=== PATIENT | female | born 1960 | race Caucasian/White ===

== ENCOUNTER 2019-12-29 09:53 | Inpatient (IN) | payer MEDICARE, SELFPAY ==
[2019-12-29] VITALS (34 sets, daily range): BP systolic 99–140; BP diastolic 58–78; PULSE 0–93; RESP 13–28; TEMP 36.4–36.8; O2SAT 93–100; BMI 25.1
--- NOTE | 2019-12-29 09:56 | ED_ITS ---
Entered by Adriana Malhotra, acting as scribe for Christopher Cowan DO HPI - Syncope General: Chief Complaint: Syncope Stated Complaint: Syncope Time Seen by Provider: 12/29/19 09:57 Source: patient and family Mode of arrival: wheelchair Limitations: no limitations History of Present Illness: HPI narrative: 59 yo female presents with syncope episode. per spouse the pt was riding in the car when she passed out and her defibrillator went off twice, pt was out for a few minutes then when came to she was sweaty and had nausea. pt denies any other symptoms. per daughter this has happened twice due to V-tach. MD complaint: felt faint and collapsed Onset (ago): hour(s) (just ferry [place] Prodromal symptoms: lightheaded, shortness of breath and diaphoresis Witnessed: Yes - by Other (spouse) Context: during exertion (driving down road) Associated symptoms: Reports chest pain, lightheadedness, nausea and short of breath; Deny fever(s) Treatments prior to arrival: none Review of Systems Const: Denies: fever, chills, body aches, change in appetite, fatigue or malaise ENMT: Denies: throat pain, ear pain, nasal discharge or nasal congestion Card: Reports: chest pain and lightheadedness Resp: Denies: shortness of breath, productive cough or non-productive cough GI: Reports: nausea : Denies: flank pain, difficulty urinating, painful urination, urinary frequency or urinary urgency Skin/Breast: Denies: rash or itching PFSH ED PFSH: Medical History Anticoagulant long-term use ASHD (arteriosclerotic heart disease) Atrial fibrillation Congestive heart failure with cardiomyopathy Dyslipidemia Ischemic cardiomyopathy LV (left ventricular) mural thrombus Myocardial infarction Periodontal disease Ventricular tachycardia Surgical History S/P angioplasty with stent S/P CABG (coronary artery bypass graft) S/P ICD (internal cardiac defibrillator) procedure Status post tubal ligation Family History Father CAD (coronary artery disease) Myocardial infarction Mother CAD (coronary artery disease) Myocardial infarction Sister CAD (coronary artery disease) Myocardial infarction Social History Smoking and tobacco status: former smoker Alcohol intake: current Alcohol intake frequency: holidays/special occasions only Marital status: Life Partner Current gender identity: Female Josi/Scientologist: Yarsani Physical Exam Const: COMMON NORMALS: no apparent distress GENERAL APPEARANCE: cooperative and comfortable ORIENTATION/CONSCIOUSNESS: Yes awake, Yes oriented to person, Yes oriented to place and Yes oriented to time HENMT: COMMON NORMALS: normocephalic, head/scalp atraumatic, hearing grossly normal bilaterally, external ears normal, EAC's normal, TM's normal bilaterally, nasal mucous membranes and turbinates normal, moist oral mucous membranes and oropharynx normal HEAD & SCALP: normocephalic and atraumatic NOSE: nasal mucous membranes and turbinates normal EXTERNAL EAR: Yes external ears normal EXTERNAL AUDITORY CANAL: EAC's normal TYMPANIC MEMBRANE: TM's normal bilaterally Eye: COMMON NORMALS: PERRL, EOMs intact bilaterally, conjunctivae normal and no scleral icterus CONJUNCTIVA: Yes conjunctivae normal PUPIL: Yes PERRL Neck/C-Spine: COMMON NORMALS: full ROM, no lymphadenopathy, supple and no JVD Lymph: LYMPHATIC: no lymphadenopathy noted and no lymphedema noted Resp: COMMON NORMALS: normal respiratory effort, no retractions, no use of accessory muscles and clear to auscultation bilaterally AUSCULTATION: clear to auscultation bilaterally Cardio: COMMON NORMALS: no JVD, regular rate, regular rhythm and no murmurs RATE: regular rate RHYTHM: regular rhythm GI: COMMON NORMALS: soft to palpation and no hepatosplenomegaly AUSCULTATION: Yes normoactive bowel sounds PALPATION: Yes soft, No tender, No guarding and Yes no hepatosplenomegaly Extremity: COMMON NORMALS: normal to inspection, normal capillary refill, no clubbing, cyanosis or edema, no calf tenderness and no pedal edema Neuro: SENSORIUM/ORIENTATION: Yes oriented to person, Yes oriented to place and Yes oriented to time Skin: COMMON NORMALS: no rashes or lesions noted GENERAL SKIN EXAM: no rashes or lesions noted Course Vital Signs: Vital signs: Vital Signs Temperature 98.3 F 01/01/20 04:00 Pulse Rate 60 01/01/20 14:30 Respiratory Rate 19 H 01/01/20 14:30 Blood Pressure 99/51 01/01/20 14:30 Pulse Oximetry 97 01/01/20 14:30 MDM - Syncope Lab Data: Labs: Lab Results 12/29/19 12/29/19 12/29/19 Range/Units 10:05 10:05 10:05 WBC 5.8 (4.0-10.0) 10^3/ uL RBC 4.95 (4.1-5.3) 10^6/u L Hgb 11.1 L (11.5-15.3) g/dL Hct 38.8 (37.0-47.0) % MCV 78.4 L (81-99) fL MCH 22.4 L (28.0-34.0) pg MCHC 28.6 L (30.0-36.0) g/dL RDW 23.2 H (12.1-15.1) % Plt Count 316 (130-400) 10^3/c mm MPV 10.2 (7.4-10.4) fL Neut % (Auto) 61.3 % Lymph % (Auto) 20.8 % [place] % (Auto) 12.9 % Eos % (Auto) 2.9 % Baso % (Auto) 1.9 % Neut # (Auto) 3.6 (1.8-7.7) 10^3/u L Lymph # (Auto) 1.2 (0.8-4.8) 10^3/u L [place] # (Auto) 0.8 (0.2-0.9) 10^3/u L Eos # (Auto) 0.2 (0.0-0.8) 10^3/u L Baso # (Auto) 0.1 (0.0-0.1) 10^3/u L Nucleated RBC % (a uto) 0.5 % Nucleated RBCs # 0.0 /100WBC PT (10.5-13.3) SECO NDS INR (0.8-1.2) Specimen Type Sample Site ABG pH (7.35-7.45) ABG pCO2 (35-45) mmHg ABG pO2 (80.0-100.0) mmH g ABG HCO3 (22-26) mmol/L ABG O2 Saturation ABG Base Excess (-2.0-2.0) mmol/ L Galen Test Hematocrit (37-47) % Hgb O2 Saturation (95-100) % Carboxyhemoglobin (0.4-20.1) %THgb Methemoglobin (0.4-1.5) % Total Hemoglobin (12-16) g/dL Ionized Calcium (1.1-1.4) mmol/L O2 Delivery Device O2 Liters/Min % Insurance Biller ID Sodium 133 L (136-145) mmol/L Potassium 3.8 (3.5-5.1) mmol/L Chloride 97 L (98-107) mmol/L Carbon Dioxide 18 L (22-29) mmol/L Anion Gap 21.8 H (5-19) BUN 28 H (8-23) mg/dL Creatinine 1.4 H (0.5-0.9) mg/dL GFR Calculation 38.4 L (90-130) mL/min Glucose 167 H (65-115) mg/dL Calculated Osmolal ity 277 L (285-295) mOsm/k g Lactate (0.5-2.2) mmol/L Calcium 9.4 (8.5-10.5) mg/dL Total Bilirubin 1.3 H (0.15-1.2) mg/dL AST 28 (0-32) U/L ALT 14 (0-33) U/L Alkaline Phosphata se 193 H (35-105) IU/L Troponin T Baselin e 30 H (0-10) ng/mL Troponin T 120 Min [place] (0-10) ng/mL Delta Troponin T (0-10) ABS# NT-Pro-B Natriuret Pep 78302 H (0-125) pg/mL Total Protein 7.9 (6.6-8.7) g/dL Albumin 4.1 (3.5-5.2) g/dL Globulin 3.8 (1.3-4.6) g/dL Lipase 54 (13-60) U/L 12/29/19 12/29/19 12/29/19 Range/Units 10:05 10:05 10:14 WBC (4.0-10.0) 10^3/ uL RBC (4.1-5.3) 10^6/u L Hgb (11.5-15.3) g/dL Hct (37.0-47.0) % MCV (81-99) fL MCH (28.0-34.0) pg MCHC (30.0-36.0) g/dL RDW (12.1-15.1) % Plt Count (130-400) 10^3/c mm MPV (7.4-10.4) fL Neut % (Auto) % Lymph % (Auto) % [place] % (Auto) % Eos % (Auto) % Baso % (Auto) % Neut # (Auto) (1.8-7.7) 10^3/u L Lymph # (Auto) (0.8-4.8) 10^3/u L [place] # (Auto) (0.2-0.9) 10^3/u L Eos # (Auto) (0.0-0.8) 10^3/u L Baso # (Auto) (0.0-0.1) 10^3/u L Nucleated RBC % (a uto) % Nucleated RBCs # /100WBC PT 33.10 H (10.5-13.3) SECO NDS INR 3.19 H (0.8-1.2) Specimen Type Arterial Sample Site Radial, right ABG pH 7.29 L (7.35-7.45) ABG pCO2 39.4 (35-45) mmHg ABG pO2 101.0 H (80.0-100.0) mmH g ABG HCO3 19.0 L (22-26) mmol/L ABG O2 Saturation 97.6 ABG Base Excess -7.1 L (-2.0-2.0) mmol/ L Galen Test Pos Hematocrit 33.9 L (37-47) % Hgb O2 Saturation 96.3 (95-100) % Carboxyhemoglobin 0.9 (0.4-20.1) %THgb Methemoglobin 0.5 (0.4-1.5) % Total Hemoglobin 11.1 L (12-16) g/dL Ionized Calcium 1.1 (1.1-1.4) mmol/L O2 Delivery Device Nc O2 Liters/Min 4.0 % Insurance Biller ID [place] Sodium 136.0 (136-145) mmol/L Potassium 3.6 (3.5-5.1) mmol/L Chloride (98-107) mmol/L Carbon Dioxide (22-29) mmol/L Anion Gap (5-19) BUN (8-23) mg/dL Creatinine (0.5-0.9) mg/dL GFR Calculation (90-130) mL/min Glucose 162.0 H (65-115) mg/dL Calculated Osmolal ity (285-295) mOsm/k g Lactate 6.0 H* (0.5-2.2) mmol/L Calcium (8.5-10.5) mg/dL Total Bilirubin (0.15-1.2) mg/dL AST (0-32) U/L ALT (0-33) U/L Alkaline Phosphata se (35-105) IU/L Troponin T Baselin e (0-10) ng/mL Troponin T 120 Min [place] (0-10) ng/mL Delta Troponin T (0-10) ABS# NT-Pro-B Natriuret Pep (0-125) pg/mL Total Protein (6.6-8.7) g/dL Albumin (3.5-5.2) g/dL Globulin (1.3-4.6) g/dL Lipase (13-60) U/L 12/29/19 12/29/19 Range/Units 11:22 12:20 WBC (4.0-10.0) 10^3/ uL RBC (4.1-5.3) 10^6/u L Hgb (11.5-15.3) g/dL Hct (37.0-47.0) % MCV (81-99) fL MCH (28.0-34.0) pg MCHC (30.0-36.0) g/dL RDW (12.1-15.1) % Plt Count (130-400) 10^3/c mm MPV (7.4-10.4) fL Neut % (Auto) % Lymph % (Auto) % [place] % (Auto) % Eos % (Auto) % Baso % (Auto) % Neut # (Auto) (1.8-7.7) 10^3/u L Lymph # (Auto) (0.8-4.8) 10^3/u L [place] # (Auto) (0.2-0.9) 10^3/u L Eos # (Auto) (0.0-0.8) 10^3/u L Baso # (Auto) (0.0-0.1) 10^3/u L Nucleated RBC % (a uto) % Nucleated RBCs # /100WBC PT (10.5-13.3) SECO NDS INR (0.8-1.2) Specimen Type Arterial Sample Site Radial, right ABG pH 7.53 H (7.35-7.45) ABG pCO2 25.3 L (35-45) mmHg ABG pO2 129.0 H (80.0-100.0) mmH g ABG HCO3 20.9 L (22-26) mmol/L ABG O2 Saturation 99.6 ABG Base Excess -0.9 (-2.0-2.0) mmol/ L Galen Test Pos Hematocrit 32.6 L (37-47) % Hgb O2 Saturation 98.6 (95-100) % Carboxyhemoglobin 0.8 (0.4-20.1) %THgb Methemoglobin 0.2 L (0.4-1.5) % Total Hemoglobin 10.6 L (12-16) g/dL Ionized Calcium 1.2 (1.1-1.4) mmol/L O2 Delivery Device Nc O2 Liters/Min 4.0 % Insurance Biller ID [place] Sodium 132.0 (136-145) mmol/L Potassium 3.4 L (3.5-5.1) mmol/L Chloride (98-107) mmol/L Carbon Dioxide (22-29) mmol/L Anion Gap (5-19) BUN (8-23) mg/dL Creatinine (0.5-0.9) mg/dL GFR Calculation (90-130) mL/min Glucose 110.0 (65-115) mg/dL Calculated Osmolal ity (285-295) mOsm/k g Lactate (0.5-2.2) mmol/L Calcium (8.5-10.5) mg/dL Total Bilirubin (0.15-1.2) mg/dL AST (0-32) U/L ALT (0-33) U/L Alkaline Phosphata se (35-105) IU/L Troponin T Baselin e (0-10) ng/mL Troponin T 120 Min [place] 30.89 H (0-10) ng/mL Delta Troponin T 0.89 (0-10) ABS# NT-Pro-B Natriuret Pep (0-125) pg/mL Total Protein (6.6-8.7) g/dL Albumin (3.5-5.2) g/dL Globulin (1.3-4.6) g/dL Lipase (13-60) U/L Imaging Data^: CXR: Radiologist's impression: [address] [address] XRay Report Signed Patient: Angela Woodruff #: [id number] : 1960Acct#:[id number] Age/Sex: 59 / FADM Date: 12/29/19 Loc: ERRoom/Bed: Attending Dr: Ordering Provider/Ordering MD: Christopher Cowan DO Date of Service: 12/29/19 Procedure(s): XR chest 1V portable [id number] Accession Number(s): [id number] Report Number: [id number] WS: [id number] Portable AP upright chest, 12/29/2019 Clinical Data: dyspnea/cough Comparison: PA and lateral chest, 07/25/2019. Findings: No nodules, masses or effusions are seen. The heart is enlarged. There is right hilar enlargement. The pulmonary vascularity is moderately increased. No pneumonia or pneumothorax is seen. The midline sternotomy sutures again are seen. The pacemaker generator with AICD leads remains unchanged. XR/XR chest 1V portable [id number] Impression: 1. No change in cardiomegaly and pulmonary vascular congestion. 2. No change in right hilar enlargement and atherosclerosis. 3. No change in AICD. Dictated By:Brii Gonzalez MD Signed By:Brii Gonzalez MDSigned Date/Time:12/29/19 1021 Discharge Plan Discharge Patient Disposition: Admitted As Inpatient Admit Provider: María Luo Clinical Impression: Ventricular tachycardia, S/P ICD (internal cardiac defibrillator) procedure, Ischemic cardiomyopathy Condition: Stable Discharge Orders: Discharge Order (Routine); Ordered 01/01/20 Ordered By: Reddy Estevez Discharge Diet: Cardiac Discharge Activity: Resume usual activity Interventions: ED Discharge Assessment Last Done: 12/29/19 14:03 Discharge Date/Time: 12/29/19 14:40 Coding Level of Care Code ED Traffic Control Operator for Chg Fwd The documentation recorded by the Roscoe andino Bridget Annette, accurately reflects the service I personally performed and the decisions made by , Christopher Cowan, Dec 29, 2019 09:53
--- NOTE | 2019-12-29 10:04 | ECG_ITS ---
Measurements Intervals [place] Rate: 91 P: 92 OK: 143 QRS: -72 QRSD: 176 T: 91 QT: 435 QTc: 537 ELECTRONIC VENTRICULAR PACEMAKER ABNORMAL RHYTHM ECG Compared to ECG 07/25/2019 12:17:04 ST (T wave) deviation no longer present Electronically Signed On 12-29-2019 17:22:16 CDT by Anshu Nelson M.D. [id number]
--- NOTE | 2019-12-29 10:04 | XR_ITS ---
WS: [id number] Portable AP upright chest, 12/29/2019 Clinical Data: dyspnea/cough Comparison: PA and lateral chest, 07/25/2019. Findings: No nodules, masses or effusions are seen. The heart is enlarged. There is right hilar enlar gement. The pulmonary vascularity is moderately increased. No pneumonia or pneumothorax is seen. The midline sternotomy sutures again are seen. The pacemaker generator with AICD leads remains unchanged. XR/XR chest 1V portable [id number] Impression: 1. No change in cardiomegaly and pulmonary vascular congestion. 2. No change in right hilar enlargement and atherosclerosis. 3. No change in AICD.
[2019-12-29 10:26] LABS: ABG PCO2 39.4 mmHg (35-45); ABG PH Result 7.29 (7.35-7.45); Arterial Blood Gas Hematocrit 33.9 % (37-47); Base Excess ABG -7.1 mmol/L (-2.0-2.0); Blood Gas Allen Test Pos; Blood Gas Sample Site Radial, right; Blood Gas Sample Type Arterial; Carboxyhemoglobin 0.9 %THgb (0.4-20.1); HGB O2 Sat 96.3 % (95-100); Ionized Calcium Level - ABG 1.1 mmol/L (1.1-1.4); Methemoglobin 0.5 % (0.4-1.5); Oxygen Device NC; Oxygen Saturation ABG 97.6; Potassium Level - ABG 3.6 mmol/L (3.5-5.0); Total Hemoglobin 11.1 g/dL (12-16)
[2019-12-29 10:29] LABS: Basophils # 0.1 10^3/uL (0.0-0.1); Basophils % 1.9 %; Eosinophils # 0.2 10^3/uL (0.0-0.8); Eosinophils % 2.9 %; Hematocrit 38.8 % (37.0-47.0); Hemoglobin 11.1 g/dL (11.5-15.3); Lymphocytes # 1.2 10^3/uL (0.8-4.8); Lymphocytes % 20.8 %; Mean Corpuscular HGB Conc 28.6 g/dL (30.0-36.0); Mean Corpuscular Hemoglobin 22.4 pg (28.0-34.0); Mean Corpuscular Volume 78.4 fL (81-99); Mean Platelet Volume 10.2 fL (7.4-10.4); Monocytes # 0.8 10^3/uL (0.2-0.9); Monocytes % 12.9 %; Neutrophils # 3.6 10^3/uL (1.8-7.7); Neutrophils % 61.3 %; Nucleated Red Blood Cells % 0.5 %; Platelet Count 316 10^3/cmm (130-400); Red Blood Count 4.95 10^6/uL (4.1-5.3); Red Cell Distribution Width 23.2 % (12.1-15.1); White Blood Count 5.8 10^3/uL (4.0-10.0)
[2019-12-29 10:45] LABS: Troponin(5th) Baseline 30 ng/mL (0-10)
[2019-12-29 11:12] LABS: NT Pro B Type Natriuretic Pept 10557 pg/mL (0-125)
[2019-12-29 11:23] LABS: Alanine Aminotransferase 14 U/L (0-33); Albumin Level 4.1 g/dL (3.5-5.2); Alkaline Phosphatase 193 IU/L (35-105); Anion Gap 21.8 (5-19); Aspartate Amino Transferase 28 U/L (0-32); Blood Urea Nitrogen 28 mg/dL (8-23); Calcium 9.4 mg/dL (8.5-10.5); Carbon Dioxide 18 mmol/L (22-29); Chloride 97 mmol/L (98-107); Globulin 3.8 g/dL (1.3-4.6); Glomerular Filtration Rate 38.4 mL/min (90-130); Glucose 167 mg/dL (65-115); Lipase 54 U/L (13-60); Osmolality Calculated 277 mOsm/kg (285-295); Potassium 3.8 mmol/L (3.5-5.1); Sodium 133 mmol/L (136-145); Total Bilirubin 1.3 mg/dL (0.15-1.2); Total Protein 7.9 g/dL (6.6-8.7)
[2019-12-29 11:55] LABS: ABG PCO2 25.3 mmHg (35-45); ABG PH Result 7.53 (7.35-7.45); Arterial Blood Gas Hematocrit 32.6 % (37-47); Base Excess ABG -0.9 mmol/L (-2.0-2.0); Blood Gas Allen Test Pos; Blood Gas Sample Site Radial, right; Blood Gas Sample Type Arterial; Carboxyhemoglobin 0.8 %THgb (0.4-20.1); HCO3 ABG 20.9 mmol/L (22-26); HGB O2 Sat 98.6 % (95-100); Ionized Calcium Level - ABG 1.2 mmol/L (1.1-1.4); Methemoglobin 0.2 % (0.4-1.5); Oxygen Device NC; Oxygen Saturation ABG 99.6; Potassium Level - ABG 3.4 mmol/L (3.5-5.0); Total Hemoglobin 10.6 g/dL (12-16)
--- NOTE | 2019-12-29 12:04 | ECG_ITS ---
Measurements Intervals [place] Rate: 60 P: -5 WV: 166 QRS: 262 QRSD: 166 T: 97 QT: 501 QTc: 501 ELECTRONIC ATRIAL PACEMAKER ELECTRONIC VENTRICULAR PACEMAKER ABNORMAL RHYTHM ECG Compared to ECG 07/25/2019 12:17:04 ST (T wave) deviation no longer present Electronically Signed On 12-29-2019 17:24:42 CDT by Anshu Nelson M.D. [email or web address]
[2019-12-29] MEDS: levofloxacin-dextrose 5 % 750 MG/150 ML PREMIX 150 MG IV (12:11)
[2019-12-29 12:42] LABS: Troponin 5 2HR 30.89 ng/mL (0-10); Troponin 5 2HR Delta 0.89 ABS# (0-10)
[2019-12-29 13:07] LABS: INR 3.19 (0.8-1.2)
--- NOTE | 2019-12-29 15:20 | P.HP_ITS ---
Providers/Chief Complaint Admitting Physician: María Luo DO Primary Care Provider: Tan Acosta Jr, MD Chief Complaint: Syncope History of Present Illness Angela Woodruff is a 59 year old female with a past history of congestive heart failure and coronary artery disease that presented to the emergency today due to concern for syncopal episode. Patient reported that she had been feeling well prior to this episode. She denies any recent illness, no fevers or chills. She reports that she was out doing activities yesterday this morning she had her portable oxygen on and had concerned that it may not have been functioning well and was reported to have a episode of syncope. Her stated that he was concerned that her ICD had fired and brought her into the ER for further evaluation. Patient reports that she did have some dizziness prior to this episode, similar to her spells in the past. Review of Systems Const: Denies: fever or chills Eyes: Denies: change in vision ENMT: Denies: nasal congestion Card: Reports: edema; Denies: chest pain or palpitations Resp: Denies: shortness of breath, productive cough or coughing up blood GI: Denies: abdominal pain, nausea, vomiting, diarrhea, constipation, blood in stool or black tarry stool : Denies: painful urination or blood in urine Musc: Denies: extremity pain or muscle cramps Skin/Breast: Denies: rash or new lesion Neuro: Reports: other (Syncope); Denies: headache or dizziness Psych: Denies: anxiety or depression Endo: Denies: excessive urination or hot flashes Dirk/Lymph: Denies: easy bruising or easy bleeding Medications/Allergies Home Medications Medication Instructions Recorded Confirmed Last Taken Type morphine 15 mg PO BEDTIME 12/29/19 12/29/19 12/28/19 History mupirocin See Rx Instructions .ROUTE .COMPLEX 12/29/19 12/29/19 Unknown History naloxone [Narcan] See Rx Instructions .ROUTE .COMPLEX 12/29/19 12/29/19 Unknown History warfarin 1 mg PO DIRECTED 12/29/19 12/29/19 Unknown History warfarin 2 mg PO DIRECTED 12/29/19 12/29/19 12/28/19 History 2 mg Allergies Allergy/AdvReac Type Severity Reaction Status Date / Time No Known Allergies Allergy Unverified 11/10/19 13:03 PFSH Acute PFSH: Medical History Anticoagulant long-term use ASHD (arteriosclerotic heart disease) Atrial fibrillation Congestive heart failure with cardiomyopathy Dyslipidemia Ischemic cardiomyopathy Myocardial infarction Periodontal disease Ventricular tachycardia Surgical History S/P angioplasty with stent S/P CABG (coronary artery bypass graft) S/P ICD (internal cardiac defibrillator) procedure Status post tubal ligation Family History Father CAD (coronary artery disease) Myocardial infarction Mother CAD (coronary artery disease) Myocardial infarction Sister CAD (coronary artery disease) Myocardial infarction Social History Smoking and tobacco status: former smoker Alcohol intake: current Alcohol intake frequency: holidays/special occasions only Marital status: Life Partner Current gender identity: Female Josi/Restoration: Moravian Vitals/I&O/Wt Last Vital Signs Temp 97.5 F L 12/29/19 10:03 Pulse 60 12/29/19 14:03 Resp 18 12/29/19 14:03 BP 102/71 12/29/19 14:03 Pulse Ox 100 12/29/19 14:03 Weight last 48 hrs Weight 60.328 kg Physical Exam Const: COMMON NORMALS: oriented x3 and alert GENERAL APPEARANCE: cooperative ORIENTATION/CONSCIOUSNESS: Yes awake, Yes oriented to person, Yes oriented to place and Yes oriented to time HENMT: COMMON NORMALS: normocephalic and head/scalp atraumatic HEAD & S CALP: normocephalic and atraumatic Eye: COMMON NORMALS: PERRL PUPIL: Yes PERRL Neck/C-Spine: COMMON NORMALS: supple GENERAL: Yes normal visual inspection Resp: COMMON NORMALS: normal respiratory effort and clear to auscultation bilaterally EFFORT & INSPECTION: Yes able to speak in complete sentences OTHER: Faint crackles bilaterally Cardio: COMMON NORMALS: regular rate and regular rhythm RATE: regular rate RHYTHM: regular rhythm GI: COMMON NORMALS: soft to palpation and non-tender INSPECTION: No abdominal distension AUSCULTATION: Yes normoactive bowel sounds PALPATION: Yes soft Extremity: OTHER: Bruising over the anterior shins bilaterally with abrasion over the left knee 2+ pitting edema in the lower extremities bilaterally Neuro: COMMON NORMALS: oriented x3, CN's II-XII intact bilaterally, moves all extremities and no focal motor deficits SENSORIUM/ORIENTATION: Yes alert, Yes oriented to person, Yes oriented to place and Yes oriented to time SPEECH: speech normal Psych: COMMON NORMALS: mental status grossly normal and cooperative Data : 12/29/19 10:05 12/29/19 16:00 Micro: Microbiology 12/29/19 12:20 Blood Culture - Preliminary Blood SPECIMEN COLLECTED 12/29/19 10:05 Blood Culture - Preliminary Blood SPECIMEN COLLECTED CXR: I personally reviewed and interpreted this imaging study as follows: Radiologist's impression: Impression: 1. No change in cardiomegaly and pulmonary vascular congestion. 2. No change in right hilar enlargement and atherosclerosis. 3. No change in AICD. A&P Assessment and plan (1) Syncope, cardiogenic: With pacemaker interrogation showing ventricular tachycardia and def ibrillator firing x4 Cardiology consulted, appreciate recommendations and assistance in patient's ca re Concern for severe systolic CHF but also reported question of oxygen tank not working correctly or underlying CHF with concern for fluid overload contributing to this episode. Status: Acute Code(s): R55 - Syncope and collapse (2) Congestive heart failure with cardiomyopathy: Give IV Lasix 40mg q12h Strict I/O and daily weights LVEF of 20% on last ECHO, previously on transplant list then removed. Has been followed by heart failure specialist in the past continue other home medications, entresto, aldactone, metoprolol Status: Acute Code(s): I50.9 - Heart failure, unspecified; I42.9 - Cardiomyopathy, unspecified Additional A&P Information On chronic anticoagulation with Coumadin due to history of LV thrombus: INR slightly supratherapeutic today at 3.1 Coronary artery disease with a history of CABG: continue aspirin, statin, met oprolol History of ventricular arrhythmia: Recurrent ventricular tachycardia with ICD in place, remains on amiodarone and mexiletine COPD: without acute exacerbation Chronic oxygen dependence: on 2L by [place] at baseline Depression: continue home paroxetine GERD: continue home PPI Chronic pain on daily opioids: on Morphine at bedtime DVT ppx: continue home warfarin Diet: Cardiac Code status: DNR/DNI Attestations Medical Necessity Statement*: Inpatient admission due to severe systolic CHF with acute exacerbation and ventricular tachycardia with ICD firing and cardiogenic syncope. Expected stay greater than 2 midnights Coding Level of Care Code Acute Control And Recovery Combat Rescue for Chg Fwd Exam Comprehensive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
[2019-12-29 15:50] LABS: Add Urine Microscopic? YES; Bilirubin Urine Neg (NEGATIVE); Blood Urine Neg (Negative); Glucose Urine UA Norm (Normal); Ketones Urine Negative (Negative); Leukocyte Esterase Urine Negative (Negative); Nitrate Urine Negative (Negative); Protein Urine 1+ (Negative); Urine Appearance Clear (CLEAR); Urine Color Yellow (Yellow); Urobilinogen Urine 1 mg/dL (Negative)
--- NOTE | 2019-12-29 15:52 | USCV_ITS ---
Angela Woodruff Age: 59 Gender: F : 1960 Exam Date: 12/29/2019 16:49 Ordering Phys: María Luo DO Technologist: ANDREA RAMOS Exam Location: [facility] [place] Indication: CHF, SYNCOPE BP: 118 / 65 HR: 63 Rhythm: Sinus Technical Quality: Adequate MEASUREMENTS (Male / Female) Normal Values 2D ECHO LV Diastolic Diameter PLAX 7.2 cm 4.2 - 5.9 / 3.9 - 5.3 cm LV Systolic Diameter PLAX 6.6 cm IVS Diastolic Thickness 0.6 cm 0.6 - 1.0 / 0.6 - 0.9 cm IVS Systolic Thickness 0.6 cm LVPW Diastolic Thickness 0.8 cm 0.6 - 1.0 / 0.6 - 0.9 cm LVPW Systolic Thickness 1.2 cm LVOT Diameter 2.0 cm LV Ejection Fraction 2D Teich 17.6 % LV Ejection Fraction MOD 2C 20.8 % LV Ejection Fraction 2C AL 21.2 % LA Diameter 4.4 cm LA Width 3.5 cm LA Height 6.4 cm RA Width 4.8 cm RA Height 5.7 cm Aorta at Sinotubular Diameter 2.2 cm M-MODE LV Diastolic Diameter MM 8.4 cm 4.2 - 5.9 / 3.9 - 5.3 cm LV Systolic Diameter MM 7.7 cm LV Ejection Fraction MM Teich 16.9 % IVS Diastolic Thickness MM 0.6 cm 0.6 - 1.0 / 0.6 - 0.9 cm IVS Systolic Thickness MM 0.6 cm LVPW Diastolic Thickness MM 0.9 cm 0.6 - 1.0 / 0.6 - 0.9 cm LVPW Systolic Thickness MM 1.0 cm Aortic Annulus Diameter 2.5 cm LA Ao Ratio MM 1.8 MV E Point Septal Separation 2.1 cm DOPPLER AV Peak Velocity 119.0 cm/s LVOT Peak Velocity 35.0 cm/s AV Area Cont Eq vti 1.0 cm squared AV Area Cont Eq pk 1.0 cm squared MV Area PHT 4.9 cm squared Mitral E to A Ratio 2.4 MV E' Velocity 4.0 cm/s Mitral E to MV E' Ratio 21.6 Mitral E to LV E' Lateral Ratio 19.6 Mitral E to LV E' Septal Ratio 24.9 TR Peak Velocity 364.4 cm/s TR Peak Gradient 53.1 mmHg TR Mean Velocity 260.6 cm/s TR Mean Gradient 29.6 mmHg TR Velocity Time Integral 125.9 cm TV Peak E Velocity 83.0 cm/s Right Atrial Pressure 8.0 mmHg Pulmonary Artery Systolic Pressu 61.1 mmHg PV Peak Velocity 81.0 cm/s RV Acceleration Time 0.1 s RV Ejection Time 0.3 s RV AcT/ET 0.3 FINDINGS Left Ventricle Severely increased left ventricular cavity size. Severely decreased left ventricular systolic function. Left ventricular ejection fraction is estimated at 15-20 %. Severe diffuse hypokinesis with regional variations. Akinetic mid to distal anterior, apical and mid to distal inferior mathew. Abnormal (paradoxical) septal motion consistent with postoperative status. Grade III diastolic dysfunction (restrictive filling pattern), severely elevated filling pressures. Right Ventricle Normal right ventricular size and systolic function. Right ventricular systolic pressure 61.1 mmHg. ICD wire visualized in the right ventricle. Right Atrium Normal right atrial size. Left Atrium Moderately increased left atrial size. Mitral Valve Restricted movement of posterior mitral valve leaflet. Thickened mitral valve. At least moderate mitral valve regurgitation. Aortic Valve Structurally normal trileaflet aortic valve. No aortic valve stenosis. Mild aortic valve regurgitation. Tricuspid Valve Structurally normal tricuspid valve. Zxkbaisk-vk-lzibxa tricuspid valve regurgitation. Pulmonic Valve Gepo-dl-cnotmjzt pulmonary valve regurgitation. Pericardium No pericardial effusion. Aorta Normal sized aortic root. CONCLUSIONS 1. Severely increased left ventricular cavity size. Severely decreased left ventricular systolic function. Left ventricular ejection fraction is estimated at 15-20 %. Severe diffuse hypokinesis with regional variations. Akinetic mid to distal anterior, apical and mid to distal inferior mathew. Grade III diastolic dysfunction (restrictive filling pattern), severely elevated filling pressures. 2. Moderately increased left atrial size. 3. Yrxjtyus-cy-ejcogq tricuspid valve regurgitation. 4. At least moderate mitral valve regurgitation. 5. Severe pulmonary hypertension with pulmonary hypertension of 61 mm Hg. 6. Mild aortic valve regurgitation. 7. When compared to previous study dated 04/01/2019, mitral and tricuspid valvular regurgitation has worsened. Courtney Grace MD (Electronically Signed) Final Date: 30 December 2019 05:59 S
[2019-12-29 16:01] LABS: Add Urine Culture? No; Bacteria Urine 1+; Mucus Urine TRACE; WBC Urine 0-4 /hpf (0-5)
--- NOTE | 2019-12-29 16:04 | ECG_ITS ---
Measurements Intervals [place] Rate: 60 P: 75 IN: 138 QRS: -79 QRSD: 176 T: 71 QT: 500 QTc: 502 ELECTRONIC VENTRICULAR PACEMAKER ABNORMAL RHYTHM ECG Compared to ECG 07/25/2019 12:17:04 ST (T wave) deviation no longer present Electronically Signed On 12-29-2019 17:25:22 CDT by Anshu Nelson M.D. [id number]
[2019-12-29 16:29] LABS: Blood Urea Nitrogen 28 mg/dL (8-23); Carbon Dioxide 25 mmol/L (22-29); Chloride 100 mmol/L (98-107); Glomerular Filtration Rate 41.8 mL/min (90-130); Glucose 97 mg/dL (65-115); Osmolality Calculated 275 mOsm/kg (285-295); Sodium 134 mmol/L (136-145)
[2019-12-29 16:31] LABS: Troponin 5 6HR 30.92 ng/mL (0-10); Troponin 5 6HR Delta 0.92 ng/L (0-12)
[2019-12-29] MEDS: sodium chloride 0.9% 1,000 ML 100 ML IV (16:31)
[2019-12-29] MEDS: FUROsemide 10 mg/mL SDV 4mL 40 MG IVP (16:32)
[2019-12-29] MEDS: mupirocin oint 22 gm TOPICAL (16:37)
[2019-12-29 16:39] LABS: Magnesium 2.8 mg/dL (1.7-2.3); Phosphorus 2.2 mg/dL (2.5-4.5); Thyroid Stimulating Hormone 13.39 uIU/mL (0.27-4.20)
[2019-12-29] MEDS: warfarin 1 mg Tablet PO (18:51)
--- NOTE | 2019-12-29 19:19 | P.CONIM_ITS ---
Providers/Reason For Consult Consulting Physican/Specialty*: Dr. 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 ?She was on transplant list at one point and was taken off when she began to do fairly well clinically.?She has an software testing specialist Dr. Dixon and follows up with heart f ailure clinic in [place]. ?She then went to [facility] for LVAD and was thought not to be a candidate. ?Hospice was recommended at one point, however declined by the patient. She was accompanied by her and her daughter at the time of evaluation. She presented earlier today to emergency room with syncopal episode. She was feeling well prior to the episode but then she had a syncopal episode without any prior precipitating/ prodromal symptoms. Her ICD fired and she was brought to the ER for further evaluation. Patient denies having any recent weight gain or noting any lower extremity edema however her daughter states that her legs were swollen this morning. Chest x-ray did not show any significant pulmonary vascular congestion however her BNP was elevated. No URI or UTI-like symptoms lately. Potassium 4 and magnesium 2.5. BUN of 28 and creatinine 1.3. I have been asked to evaluate and assist in further management. Review of Systems Const: Denies: fever or chills Eyes: Denies: change in vision ENMT: Denies: nasal congestion Card: Reports: edema; Denies: chest pain or palpitations Resp: Denies: shortness of breath, productive cough or coughing up blood GI: Denies: abdominal pain, nausea, vomiting, diarrhea, constipation, blood in stool or black tarry stool : Denies: painful urination or blood in urine Musc: Denies: extremity pain or muscle cramps Skin/Breast: Denies: rash or new lesion Neuro: Reports: other (Syncope); Denies: headache or dizziness Psych: Denies: anxiety or depression Endo: Denies: excessive urination or hot flashes Dirk/Lymph: Denies: easy bruising or easy bleeding Meds/Allergies Home Medications and Allergies Home Medications Medication Instructions Recorded Confirmed Type albuterol sulfate 2.5 mg INHALATION Q4H PRN 11/09/19 12/29/19 History alprazolam 0.5 mg tablet 0.5 mg PO BID PRN 11/09/19 12/29/19 History amiodarone 100 mg tablet 100 mg PO DAILY 11/09/19 12/29/19 History clopidogrel 75 mg tablet 75 mg PO DAILY 11/09/19 12/29/19 History fluticasone propionate 50 1 spray INTRANASAL BID PRN 11/09/19 12/29/19 History mcg/actuation nasal spray,suspension furosemide 40 mg tablet 40 mg PO BID 11/09/19 12/29/19 History metoprolol succinate 25 mg 50 mg PO DAILY 11/09/19 12/29/19 History tablet,extended release 24 hr mexiletine 150 mg capsule 150 mg PO Q8H 11/09/19 12/29/19 History nitroglycerin 0.4 mg sublingual 0.4 mg SUBLINGUAL Q5M PRN 11/09/19 12/29/19 History tablet pantoprazole 40 mg tablet,delayed 40 mg PO DAILY 11/09/19 12/29/19 History release paroxetine HCl 20 mg tablet 20 mg PO DAILY 11/09/19 12/29/19 History potassium chloride 10 mEq 20 meq PO BID 11/09/19 12/29/19 History capsule,extended release rosuvastatin 40 mg tablet 40 mg PO DAILY 11/09/19 12/29/19 History sacubitril 24 mg-valsartan 26 mg 1 tab PO BID 11/09/19 12/29/19 History tablet spironolactone 25 mg tablet 25 mg PO DAILY 11/09/19 12/29/19 History tiotropium bromide 18 mcg capsule 1 cap INHALATION DAILY 11/09/19 12/29/19 History with inhalation device morphine 15 mg PO BEDTIME 12/29/19 12/29/19 History mupirocin See Rx Instructions .ROUTE .COMPLEX 12/29/19 12/29/19 History naloxone [Narcan] See Rx Instructions .ROUTE .COMPLEX 12/29/19 12/29/19 History warfarin 1 mg PO DIRECTED 12/29/19 12/29/19 History warfarin 2 mg PO DIRECTED 12/29/19 12/29/19 History Allergies Allergy/AdvReac Type Severity Reaction Status Date / Time No Known Allergies Allergy Unverified 11/10/19 13:03 Current Medications Current Medications Generic Name Dose Route Start Last Admin Trade Name Freq PRN Reason Stop Dose Admin Furosemide 40 mg 12/29/19 16:00 12/29/19 16:32 Lasix IVP 40 mg Q12H YULY Administration Sodium Chloride 1,000 mls @ 100 mls/hr 12/29/19 15:29 12/29/19 16:31 Sodium Chloride 0.9% IV 100 mls/hr .Q10H YULY Administration Mupirocin 0 applic 12/29/19 16:00 12/29/19 16:37 Bactroban TOPICAL 1 applic PRN PRN Administration DIRECTED Non-Formulary Medication 150 mg 12/29/19 16:00 12/29/19 16:36 Mexiletine PO Not Given Q8H YULY Non-Formulary 1 each 12/29/19 18:00 12/29/19 16:38 Medication Entresto PO Not Given BID YULY Potassium Chloride 20 meq 12/29/19 18:00 12/29/19 16:32 Klor-Con 10 PO 20 meq BID YULY Administration Warfarin Sodium 2 mg 12/29/19 16:00 12/29/19 17:02 Coumadin PO Not Given SuMoWeThFrSa YULY Warfarin Sodium 1 mg 01/03/20 15:57 12/29/19 18:51 Coumadin PO 1 mg Tu YULY Administration PFSH Acute PFSH: Medical History (Updated 12/29/19 @ 19:34 by Courtney Grace MD) Anticoagulant long-term use ASHD (arteriosclerotic heart disease) Atrial fibrillation Congestive heart failure with cardiomyopathy Dyslipidemia Ischemic cardiomyopathy Myocardial infarction Periodontal disease Ventricular tachycardia Surgical History S/P angioplasty with stent S/P CABG (coronary artery bypass graft) S/P ICD (internal cardiac defibrillator) procedure Status post tubal ligation Family History Father CAD (coronary artery disease) Myocardial infarction Mother CAD (coronary artery disease) Myocardial infarction Sister CAD (coronary artery disease) Myocardial infarction Social History Smoking and tobacco status: former smoker Alcohol intake: current Alcohol intake frequency: holidays/special occasions only Marital status: Life Partner Current gender identity: Female Josi/Presybeterian: Catholic Vitals/I&O/Wt Last Vital Signs Temp 97.5 F L 12/29/19 10:03 Pulse 64 12/29/19 17:00 Resp 26 H 12/29/19 17:00 BP 118/65 12/29/19 17:00 Pulse Ox 95 12/29/19 15:54 12/29/19 12/29/19 12/29/19 06:59 14:59 22:59 Intake Total 240 / 240 Balance 240 / 240 Weight last 48 hrs Weight 133 lb Physical Exam Const: COMMON NORMALS: oriented x3 and alert GENERAL APPEARANCE: cooperative ORIENTATION/CONSCIOUSNESS: Yes awake, Yes oriented to person, Yes oriented to place and Yes oriented to time HENMT: COMMON NORMALS: normocephalic and head/scalp atraumatic HEAD & SCALP: normocephalic and atraumatic Eye: COMMON NORMALS: PERRL PUPIL: Yes PERRL Neck/C-Spine: COMMON NORMALS: supple GENERAL: Yes normal visual inspection Resp: COMMON NORMALS: normal respiratory effort EFFORT & INSPECTION: Yes able to speak in complete sentences OTHER: Decreased breath sounds bilateral bases; occasional crakles Cardio: COMMON NORMALS: regular rate and regular rhythm RATE: regular rate RHYTHM: regular rhythm GI: COMMON NORMALS: soft to palpation and non-tender INSPECTION: No abdominal distension AUSCULTATION: Yes normoactive bowel sounds PALPATION: Yes soft Extremity: OTHER: Bruising over the anterior shins bilaterally with abrasion over the left knee 2+ pitting edema in the lower extremities bilaterally Neuro: COMMON NORMALS: oriented x3, CN's II-XII intact bilaterally, moves all extremities and no focal motor deficits SENSORIUM/ORIENTATION: Yes alert, Yes oriented to person, Yes oriented to place and Yes oriented to time SPEECH: speech normal Psych: COMMON NORMALS: mental status grossly normal and cooperative Data Micro: Micro: Microbiology 12/29/19 12:20 Blood Culture - Pr eliminary Blood SPECIMEN [facility] ALISSA 12/29/19 10:05 Blood Culture - Pr eliminary Blood SPECIMEN [facility] ALISSA A&P Assessment and plan (1) Syncope, cardiogenic: BiV ICD was interrogated. DDDR 60/120/120. -Four episodes of device treated ventricular tachycardia at 390 msec between 8:33 and 8:47 AM. The longest episode lasted for 16 seconds. These were terminated with antitachycardia pacing. -Ventricular tachycardia in setting of decompensated congestive heart failure. Keep potassium more than 4 and magnesium more than 2. Electrolytes within normal limits on arrival. -Agree with IV diuretics. -Continue to monitor closely. -Patient is already on amiodarone and mexiletine. Continue Status: Acute Code(s): R55 - Syncope and collapse (2) Congestive heart failure with cardiomyopathy: Patient with decompensated congestive heart failure clinically as well as on OptiVol data. -Continue with IV diuretics. Close intake and output monitoring. -Follow-up on BMP. -Continue Entresto spironolactone and metoprolol succinate. Status: Acute Code(s): I50.9 - Heart failure, unspecified; I42.9 - Cardiomyopathy, unspecified (3) Atrial flutter, paroxysmal: Continue current medications. Status: Acute Code(s): I48.92 - Unspecified atrial flutter (4) ASHD (arteriosclerotic heart disease): CAD with history of CABG. Status: Acute Code(s): I25.10 - Atherosclerotic heart disease of [place] coronary artery without angina pectoris (5) Dyslipidemia: Status: Acute Code(s): E78.5 - Hyperlipidemia, unspecified Additional A&P Information History of ventricular arrhythmias with recurrent ICD discharges. Anemia History of LV thrombus COPD on chronic home oxygen. Thank you for allowing me to participate in patient's care. Please feel free to call with questions or concerns. Coding Level of Care Code Acute Administrative Office Specialist for Kit Denny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 Atrial flutter, paroxysmal I48.92 ASHD (arteriosclerotic heart disease) I25.10 Dyslipidemia E78.5
[2019-12-29] MEDS: morphine ER (12 HR) 15 mg Tablet PO (21:42)
[2019-12-30] VITALS (12 sets, daily range): BP systolic 99–106; BP diastolic 53–67; PULSE 59–65; RESP 16–21; TEMP 36.1–36.8; O2SAT 92–98
[2019-12-30] MEDS: FUROsemide 10 mg/mL SDV 4mL 40 MG IVP ×2 (04:17→15:54)
[2019-12-30] MEDS: sodium chloride 0.9% 1,000 ML 100 ML IV ×3 (04:17→16:43)
[2019-12-30 04:18] LABS: Basophils # 0.1 10^3/uL (0.0-0.1); Basophils % 1.2 %; Eosinophils # 0.1 10^3/uL (0.0-0.8); Eosinophils % 1.4 %; Hematocrit 32.6 % (37.0-47.0); Hemoglobin 9.6 g/dL (11.5-15.3); Lymphocytes # 0.7 10^3/uL (0.8-4.8); Lymphocytes % 11.1 %; Mean Corpuscular HGB Conc 29.4 g/dL (30.0-36.0); Mean Corpuscular Hemoglobin 23.2 pg (28.0-34.0); Mean Corpuscular Volume 78.7 fL (81-99); Mean Platelet Volume 10.3 fL (7.4-10.4); Monocytes # 0.8 10^3/uL (0.2-0.9); Monocytes % 12.8 %; Neutrophils # 4.3 10^3/uL (1.8-7.7); Neutrophils % 73.2 %; Nucleated Red Blood Cells % 0 %; Platelet Count 275 10^3/cmm (130-400); Red Blood Count 4.14 10^6/uL (4.1-5.3); Red Cell Distribution Width 22.6 % (12.1-15.1); White Blood Count 5.9 10^3/uL (4.0-10.0)
[2019-12-30 04:35] LABS: Anion Gap 13.1 (5-19); Blood Urea Nitrogen 22 mg/dL (8-23); Calcium 8.6 mg/dL (8.5-10.5); Carbon Dioxide 25 mmol/L (22-29); Chloride 102 mmol/L (98-107); Glomerular Filtration Rate 45.8 mL/min (90-130); Glucose 98 mg/dL (65-115); Osmolality Calculated 279 mOsm/kg (285-295); Potassium 4.1 mmol/L (3.5-5.1); Sodium 136 mmol/L (136-145)
--- NOTE | 2019-12-30 08:42 | PM.PN ---
Subjective Subjective: Interval history: Angela is well-known to me with longstanding end-stage cardiomyopathy from coronary artery disease. She had multiple myocardial infarctions and bypass surgery at a very young age. She was evaluated years ago at [facility] for transplant. She was doing well clinically at that time and was taken off the transplant list. Subsequently she moved down here and did well for a few years. About 2 years ago she started to have a indolent downhill course with frequent episodes of ventricular tachycardia, heart failure and frequent admissions for ICD shocks. The ICD is a COMMERCIAL COLLECTIONS SPECIALIST device. She is on maximal medical therapy. About 2 years ago I sent her to [facility] at her request for reconsideration of transplant. She was turned down. She sees the heart failure clinic and chassis inspector in [place]. They recommended hospice several months ago but she declined this as well. Yesterday she had an episode of syncope. This is a fairly typical presentation for her. She was brought into the emergency room and the device was interrogated. She had 4 runs of ventricular tachycardia which were treated with antitachycardia pacing. The device did not shock her. She is felt to be volume overloaded and is being given intravenous Lasix along with her other medications. We have been at a maximum of her antiarrhythmics for some time on both mexiletine and amiodarone. She has had a fairly steady downhill course over the last year or 2. She continues to have poor performance status, weakness and chronic shortness of breath. She has a number of other underlying problems as well which are listed. Medications: Reviewed: Yes Vitals/I&O/Wt Last Vital Signs Temp 97.8 F 12/30/19 07:32 Pulse 63 12/30/19 07:32 Resp 19 H 12/30/19 07:32 BP 103/55 12/30/19 07:32 Pulse Ox 94 12/30/19 07:32 12/29/19 12/30/19 12/30/19 22:59 06:59 14:59 Intake Total 600 / 600 1220 / 1820 Output Total 1950 / 1950 1150 / 3100 Balance -1350 / -1350 70 / -1280 Weight last 48 hrs Weight 143 lb Weight 133 lb Physical Exam Narrative: EXAM NARRATIVE: GENERAL: In general she is comfortable and has no complaints this morning HEENT: Exam within normal limits. NECK: Supple without jugular vein distention. The carotid upstroke is normal without bruits. BACK: Exam normal. LUNGS: Clear. HEART: Regular rate and rhythm. ABDOMEN: Benign without organomegaly or tenderness. EXTREMITIES: 1+ edema NEUROLOGIC: Exam normal. SKIN: Unremarkable. Data : 12/30/19 03:30 12/30/19 03:30 Micro: Microbiology 12/29/19 12:20 Blood Culture - Preliminary Blood SPECIMEN COLLECTED 12/29/19 10:05 Blood Culture - Preliminary Blood SPECIMEN COLLECTED A&P Assessment and plan (1) Atrial fibrillation: Status: Acute Code(s): I48.91 - Unspecified atrial fibrillation (2) Myocardial infarction: Status: Acute Code(s): I21.9 - Acute myocardial infarction, unspecified (3) Anticoagulant long-term use: Status: Acute Code(s): Z79.01 - assisted (current) use of anticoagulants (4) Dyslipidemia: Status: Acute Code(s): E78.5 - Hyperlipidemia, unspecified (5) Ischemic cardiomyopathy: Status: Acute Code(s): I25.5 - Ischemic cardiomyopathy (6) ASHD (arteriosclerotic heart disease): Status: Acute Code(s): I25.10 - Atherosclerotic heart disease of [place] coronary artery without angina pectoris (7) Congestive heart failure with cardiomyopathy: Status: Acute Code(s): I50.9 - Heart failure, unspecified; I42.9 - Cardiomyopathy, unspecified (8) Syncope, cardiogenic: Status: Acute Code(s): R55 - Syncope and collapse (9) Ventricular tachycardia: Status: Acute Code(s): I47.2 - Ventricular tachycardia (10) S/P angioplasty with stent: Status: Acute Code(s): Z95.820 - Peripheral vascular angioplasty status with implants and grafts (11) S/P CABG (coronary artery bypass graft): Status: Acute Code(s): Z95.1 - Presence of aortocoronary bypass graft (12) S/P ICD (internal cardiac defibrillator) procedure: Status: Acute Code(s): Z95.810 - Presence of automatic (implantable) cardiac defibrillator Additional A&P Information She remains seriously chronically ill and continues to slowly go downhill. We are essentially at the limits of what we can do for her with the ICD in place and with medications. She is at the maximum of the mexiletine and the amiodarone. I think this was triggered by volume overload. We will try to diurese her and compensate her heart failure. She should be DNR and should be on hospice but so far she has declined this. No changes made this morning. Attestations Medical Necessity Statement*: Not applicable Coding Level of Care Code Acute Aeronautical Engineering Teacher for g Fwd Diagnoses Atrial fibrillation I48.91 Myocardial infarction I21.9 Anticoagulant long-term use Z79.01 Dyslipidemia E78.5 Ischemic cardiomyopathy I25.5 ASHD (arteriosclerotic heart disease) I25.10 Congestive heart failure with cardiomyopathy I50.9; I42.9 Syncope, cardiogenic R55 Ventricular tachycardia I47.2 S/P angioplasty with stent Z95.820 S/P CABG (coronary artery bypass graft) Z95.1 S/P ICD (internal cardiac defibrillator) procedure Z95.810
[2019-12-30] MEDS: amiodarone 200 mg Tablet 100 MG PO (08:56)
[2019-12-30] MEDS: pantoprazole DR 40 mg Tablet PO (08:57)
[2019-12-30] MEDS: spironolactone 25 mg Tablet PO (08:57)
[2019-12-30] MEDS: clopidogrel 75 mg Tablet PO (08:57)
[2019-12-30] MEDS: PARoxetine 20 mg Tablet PO (08:57)
[2019-12-30] MEDS: atorvastatin 40 mg Tablet 80 MG PO (08:57)
[2019-12-30] MEDS: metoprolol succinate ER (24 HR) 25 mg Tablet 50 MG PO (08:57)
[2019-12-30 09:07] LABS: INR 2.95 (0.8-1.2)
--- NOTE | 2019-12-30 09:47 | PC.CHAP ---
Pastoral Care Encounter/Spiritual Assessment Type of Contact [] Declined bonding supervisor visit [] Patient/Family/Request visit [] Outpatient visit [] Follow-up visit [] Physician referral [] Code/Alert [x] Routine visit [] Staff referral [] Actively dying [] Patient sleeping [] Family support [] [] Out of room [] Palliative care [] [x] Receiving care in room [] Pre-surgical visit [] Trauma [] Long length of stay [] ICU visit [] Other: Relational/Emotional Strength [] Patient feels connected with others/family/visitors/staff [] Distress [] Loneliness/isolation [] Abandonment Spirituality of Patient [] Person of Josi [] Attends Voodoo of their Josi [] Believes in Prayer [] Reads Bible or Denominational materials [] There are Spiritual issues to be addressed Dietetic Technician Registered Interventions [] Prayer [] Active listening [] Non-anxious presence [] Spiritual/emotional support [] Crisis/trauma care [] Spiritual counseling [] Bereavement support [] Provided bereavement packet [] Provided Bible/devotional materials [] Provided toy/stuffed animal, coloring book to patient or family member [] Provided Communion [] Anointing/[place] [] Salvation [x] Completed spiritual assessment [] Other: Impact on Illness or Injury [] Angry [] Fearful [] Anxious [] Often cries [] Exhaustion [] Unable to work [] Unable to attend anabaptism [] Unable to walk/stand [] Unable to read [] Unable to drive [] Unable to eat/drink [] Unable to sleep [] Unable to be with family [] Patient intubated [] Other: Summary Time spent with patient
--- NOTE | 2019-12-30 15:07 | P.PN_ITS ---
Subjective Subjective: Interval history: Patient has known systolic congestive heart failure and has been on transplant list and then removed in the past. She reported she does not have any chest pain today, swelling is improved. She reports that she is aware of the deterioration of her heart and the fact that end of life may be near. She was tearful this morning at time of exam but denied any specific questions or concerns. Medications: Reviewed: Yes Vitals/I&O/Wt Last Vital Signs Temp 97.4 F L 12/30/19 11:31 Pulse 61 12/30/19 11:31 Resp 18 12/30/19 11:31 BP 99/53 12/30/19 11:31 Pulse Ox 92 12/30/19 11:31 12/30/19 12/30/19 12/30/19 06:59 14:59 22:59 Intake Total 1220 / 1820 480 / 480 Output Total 1150 / 3100 1500 / 1500 Balance 70 / -1280 -1020 / -1020 Weight last 48 hrs Weight 64.864 kg Weight 60.328 kg Physical Exam Const: COMMON NORMALS: oriented x3 and alert GENERAL APPEARANCE: cooperative ORIENTATION/CONSCIOUSNESS: Yes awake, Yes oriented to person, Yes oriented to place and Yes oriented to time HENMT: COMMON NORMALS: normocephalic and head/scalp atraumatic HEAD & SCALP: normocephalic and atraumatic Eye: COMMON NORMALS: PERRL PUPIL: Yes PERRL Neck/C-Spine: COMMON NORMALS: supple GENERAL: Yes normal visual inspection Resp: COMMON NORMALS: normal respiratory effort and clear to auscultation bilaterally EFFORT & INSPECTION: Yes able to speak in complete sentences AUSCULTATION: clear to auscultation bilaterally OTHER: Faint crackles bilaterally Cardio: COMMON NORMALS: regular rate and regular rhythm RATE: regular rate RHYTHM: regular rhythm GI: COMMON NORMALS: soft to palpation and non-tender INSPECTION: No abdominal distension AUSCULTATION: Yes normoactive bowel sounds PALPATION: Yes soft Extremity: OTHER: Bruising over the anterior shins bilaterally with abrasion over the left knee 1+ pitting edema in the lower extremities bilaterally Neuro: COMMON NORMALS: oriented x3, CN's II-XII intact bilaterally, moves all extremities and no focal motor deficits SENSORIUM/ORIENTATION: Yes alert, Yes oriented to person, Yes oriented to place and Yes oriented to time SPEECH: speech normal Psych: COMMON NORMALS: mental status grossly normal and cooperative Data : 12/30/19 03:30 12/30/19 03:30 Micro: Microbiology 12/29/19 12:20 Blood Culture - Preliminary Blood NEGATIVE TO DATE 12/29/19 10:05 Blood Culture - Preliminary Blood NEGATIVE TO DATE A&P Assessment and plan (1) Syncope, cardiogenic: With pacemaker interrogation showing ventricular tachycardia and defibrillator firing x4 Cardiology consulted, appreciate recommendations and assistance in patient's care Concern for severe systolic CHF but also reported question of oxygen tank not working correctly or underlying CHF with concern for fluid overload contributing to this episode. Status: Acute Code(s): R55 - Syncope and collapse (2) Congestive heart failure with cardiomyopathy: Give IV Lasix 40mg q12h Strict I/O and daily weights LVEF of 20% on last ECHO, previously on transplant list then removed. Has been followed by heart failure specialist in the past continue other home medications, entresto, aldactone, metoprolol Status: Acute Code(s): I50.9 - Heart failure, unspecified; I42.9 - Cardiomyopathy, unspecified Additional A&P Information On chronic anticoagulation with Coumadin due to history of LV thrombus: INR 2.9 Coronary artery disease with a history of CABG: continue aspirin, statin, metoprolol History of ventricular arrhythmia: Recurrent ventricular tachycardia with ICD in place, remains on amiodarone and mexiletine COPD: without acute exacerbation Chronic oxygen dependence: on 2L by NC at baseline Depression: continue home paroxetine GERD: continue home PPI Chronic pain on daily opioids: on Morphine at bedtime DVT ppx: continue home warfarin Diet: Cardiac Code status: DNR/DNI Attestations Medical Necessity Statement*: Patient requires further hospitalization due to severe ischemic systolic congestive heart failure and CHF exacerbation Coding Level of Care Code Acute Marine Reporter for [facility] Fwgricelda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
[2019-12-30] MEDS: MEXILETINE 150 MG 150 EACH PO ×2 (15:30→15:55)
[2019-12-30] MEDS: acetaminophen 325 mg Tablet 650 MG PO (15:54)
[2019-12-30] MEDS: warfarin 2 mg Tablet PO (15:54)
[2019-12-30] MEDS: phenol oral Spray 177 mL 3 SPRAY MUCOUS MEM (16:40)
[2019-12-30] MEDS: mupirocin oint 22 gm TOPICAL (16:40)
[2019-12-30] MEDS: morphine ER (12 HR) 15 mg Tablet PO (20:28)
[2019-12-30] MEDS: ALPRAZolam 0.5 mg Tablet PO (20:29)
[2019-12-31] VITALS (9 sets, daily range): BP systolic 91–111; BP diastolic 48–64; PULSE 60–66; RESP 16–25; TEMP 36.5–36.8; O2SAT 92–98
[2019-12-31] MEDS: sodium chloride 0.9% 1,000 ML 100 ML IV (02:47)
[2019-12-31] MEDS: phenol oral Spray 177 mL 3 SPRAY MUCOUS MEM ×2 (02:50→16:29)
[2019-12-31 04:29] LABS: INR 2.67 (0.8-1.2)
[2019-12-31] MEDS: FUROsemide 10 mg/mL SDV 4mL 40 MG IVP (04:41)
[2019-12-31 04:51] LABS: Blood Urea Nitrogen 20 mg/dL (8-23); Calcium 8.6 mg/dL (8.5-10.5); Carbon Dioxide 27 mmol/L (22-29); Chloride 106 mmol/L (98-107); Glomerular Filtration Rate 45.8 mL/min (90-130); Glucose 99 mg/dL (65-115); Osmolality Calculated 285 mOsm/kg (285-295); Sodium 139 mmol/L (136-145)
--- NOTE | 2019-12-31 07:11 | PM.PN ---
Subjective Subjective: Interval history: No changes overnight for Angela. She is getting 100 mL/h of normal saline. Urine output 3400 mL. She remains on intravenous Lasix 40 mg IV every 12 hours. Her other medications have remained the same. No more ventricular tachycardia. Medications: Reviewed: Yes Vitals/I&O/Wt Last Vital Signs Temp 98.3 F 12/31/19 04:00 Pulse 66 12/31/19 04:00 Resp 22 H 12/31/19 04:00 BP 111/64 12/31/19 04:00 Pulse Ox 95 12/31/19 04:00 12/30/19 12/31/19 12/31/19 22:59 06:59 14:59 Intake Total 480 / 1960 1000 / 2960 Output Total 600 / 2100 1300 / 3400 Balance -120 / -140 -300 / -440 Weight last 48 hrs Weight 143 lb 1.6 oz Weight 143 lb Weight 133 lb Physical Exam Narrative: EXAM NARRATIVE: GENERAL: Sleeping soundly this morning. No distress. HEENT: Exam within normal limits. NECK: Supple without jugular vein distention. The carotid upstroke is normal without bruits. BACK: Exam normal. LUNGS: Clear. HEART: Regular rate and rhythm. ABDOMEN: Benign without organomegaly or tenderness. EXTREMITIES: No edema. NEUROLOGIC: Exam normal. SKIN: Unremarkable. Data : 12/30/19 03:30 12/31/19 03:28 Micro: Microbiology 12/29/19 12:20 Blood Culture - Preliminary Blood NEGATIVE TO DATE 12/29/19 10:05 Blood Culture - Preliminary Blood NEGATIVE TO DATE A&P Assessment and plan (1) S/P ICD (internal cardiac defibrillator) procedure: Status: Acute Code(s): Z95.810 - Presence of automatic (implantable) cardiac defibrillator (2) S/P CABG (coronary artery bypass graft): Status: Acute Code(s): Z95.1 - Presence of aortocoronary bypass graft (3) S/P angioplasty with stent: Status: Acute Code(s): Z95.820 - Peripheral vascular angioplasty status with implants and grafts (4) Ventricular tachycardia: Status: Acute Code(s): I47.2 - Ventricular tachycardia (5) Atrial flutter, paroxysmal: Status: Acute Code(s): I48.92 - Unspecified atrial flutter (6) Syncope, cardiogenic: Status: Acute Code(s): R55 - Syncope and collapse (7) Congestive heart failure with cardiomyopathy: Status: Acute Code(s): I50.9 - Heart failure, unspecified; I42.9 - Cardiomyopathy, unspecified (8) ASHD (arteriosclerotic heart disease): Status: Acute Code(s): I25.10 - Atherosclerotic heart disease of [place] coronary artery without angina pectoris (9) Ischemic cardiomyopathy: Status: Acute Code(s): I25.5 - Ischemic cardiomyopathy (10) Dyslipidemia: Status: Acute Code(s): E78.5 - Hyperlipidemia, unspecified (11) Anticoagulant long-term use: Status: Acute Code(s): Z79.01 - 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 We will turn off the fluids. Her heart failure is essentially compensated. We should get her up and around. If she is doing and feeling well she could possibly go home today. If not she can go home tomorrow. 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
[2019-12-31] MEDS: pantoprazole DR 40 mg Tablet PO (09:00)
[2019-12-31] MEDS: FUROsemide 40 mg Tablet PO ×2 (09:00→16:30)
[2019-12-31] MEDS: MEXILETINE 150 MG 150 EACH PO ×3 (09:00→20:40)
[2019-12-31] MEDS: atorvastatin 40 mg Tablet 80 MG PO (09:01)
[2019-12-31] MEDS: PARoxetine 20 mg Tablet PO (09:01)
[2019-12-31] MEDS: clopidogrel 75 mg Tablet PO (09:01)
[2019-12-31] MEDS: spironolactone 25 mg Tablet PO (09:01)
[2019-12-31] MEDS: amiodarone 200 mg Tablet 100 MG PO (09:01)
[2019-12-31] MEDS: metoprolol succinate ER (24 HR) 25 mg Tablet 50 MG PO (09:01)
[2019-12-31] MEDS: warfarin 2 mg Tablet PO (16:30)
--- NOTE | 2019-12-31 17:35 | P.PN_ITS ---
Subjective Subjective: Interval history: No acute overnight events. feels well. No arrhythmias on telemtery. No c/o chest pain, dyspnea, palpitations, syncope. Ambulating somehwat in the room, however still gets winded on walking. Medications: Reviewed: Yes Vitals/I&O/Wt Last Vital Signs Temp 97.7 F 12/31/19 10:35 Pulse 60 12/31/19 15:45 Resp 20 H 12/31/19 15:45 BP 110/62 12/31/19 15:45 Pulse Ox 97 12/31/19 15:45 12/31/19 12/31/19 12/31/19 06:59 14:59 22:59 Intake Total 1000 / 2960 360 / 360 Output Total 1300 / 3400 Balance -300 / -440 360 / 360 Weight last 48 hrs Weight 64.909 kg Weight 64.864 kg Physical Exam Narrative: EXAM NARRATIVE: GEN: Awake, alert and oriented, no acute distress CVS: S1S2 N RS: CTA B/L Abd: Soft, nt/nd , bs+ FLUTE TEACHER: no focal neuro deficits Data : 12/30/19 03:30 12/31/19 03:28 A&P Assessment and plan (1) Syncope, cardiogenic: With pacemaker interrogation showing ventricular tachycardia and defibrillator firing x4 Cardiology consulted, appreciate recommendations and assistance in patient's care Concern for severe systolic CHF but also reported question of oxygen tank not working correctly or underlying CHF with concern for fluid overload contributing to this episode. Status: Acute Code(s): R55 - Syncope and collapse (2) Congestive heart failure with cardiomyopathy: Improved with iv diuresis with lasix. Switched now to po lasix 40mg BID Strict I/O and daily weights LVEF of 20% on last ECHO, previously on transplant list then removed. Has been followed by heart failure specialist in the past continue other home medications, entresto, aldactone, metoprolol Status: Acute Code(s): I50.9 - Heart failure, unspecified; I42.9 - Cardiomyopathy, unspecified Additional A&P Information On chronic anticoagulation with Coumadin due to history of LV thrombus: INR 2.9 Coronary artery disease with a history of CABG: continue aspirin, statin, metopr olol History of ventricular arrhythmia: Recurrent ventricular tachycardia with ICD in place, remains on amiodarone and mexiletine COPD: without acute exacerbation Chronic oxygen dependence: on 2L by NC at baseline Depression: continue home paroxetine GERD: continue home PPI Chronic pain on daily opioids: on Morphine at bedtime DVT ppx: continue home warfarin Diet: Cardiac Code status: DNR/DNI Dispo: Plan for discharge tomorrow Attestations Medical Necessity Statement*: optimization of heart failure management, likely discharge home tomorrow Coding Level of Care Code 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
[2019-12-31] MEDS: ALPRAZolam 0.5 mg Tablet PO (20:40)
[2019-12-31] MEDS: morphine ER (12 HR) 15 mg Tablet PO (20:40)
[2020-01-01] VITALS (7 sets, daily range): BP systolic 99–107; BP diastolic 51–62; PULSE 60–68; RESP 13–25; TEMP 36.8–36.9; O2SAT 85–98
[2020-01-01 05:08] LABS: Basophils # 0.1 10^3/uL (0.0-0.1); Basophils % 1.7 %; Eosinophils # 0.2 10^3/uL (0.0-0.8); Hematocrit 33.4 % (37.0-47.0); Hemoglobin 9.7 g/dL (11.5-15.3); Lymphocytes # 0.8 10^3/uL (0.8-4.8); Lymphocytes % 13.6 %; Mean Corpuscular Volume 79.3 fL (81-99); Monocytes # 0.6 10^3/uL (0.2-0.9); Monocytes % 11.1 %; Neutrophils % 69.4 %; Nucleated Red Blood Cells % 0 %; Platelet Count 258 10^3/cmm (130-400); Red Blood Count 4.21 10^6/uL (4.1-5.3); Red Cell Distribution Width 23.1 % (12.1-15.1); White Blood Count 5.7 10^3/uL (4.0-10.0)
[2020-01-01 05:24] LABS: INR 2.78 (0.8-1.2)
[2020-01-01 05:39] LABS: Alanine Aminotransferase 13 U/L (0-33); Albumin Level 3.4 g/dL (3.5-5.2); Alkaline Phosphatase 143 IU/L (35-105); Anion Gap 13.9 (5-19); Aspartate Amino Transferase 23 U/L (0-32); Blood Urea Nitrogen 19 mg/dL (8-23); Carbon Dioxide 25 mmol/L (22-29); Chloride 102 mmol/L (98-107); Globulin 3.1 g/dL (1.3-4.6); Glomerular Filtration Rate 50.7 mL/min (90-130); Glucose 92 mg/dL (65-115); Osmolality Calculated 280 mOsm/kg (285-295); Potassium 3.9 mmol/L (3.5-5.1); Sodium 137 mmol/L (136-145); Total Bilirubin 1.2 mg/dL (0.15-1.2); Total Protein 6.5 g/dL (6.6-8.7)
--- NOTE | 2020-01-01 07:24 | PM.PN ---
Subjective Subjective: Interval history: Angela seems to be getting along okay. Her shortness of breath is better. She is up and around. She is chronically weak. No chest pain. No syncope. No ventricular tachycardia. Medications: Reviewed: Yes Vitals/I&O/Wt Last Vital Signs Temp 98.3 F 01/01/20 04:00 Pulse 60 01/01/20 04:00 Resp 13 01/01/20 04:00 BP 100/58 01/01/20 04:00 Pulse Ox 96 01/01/20 04:00 12/31/19 01/01/20 01/01/20 22:59 06:59 14:59 Intake Total 240 / 600 100 / 700 Balance 240 / 600 100 / 700 Weight last 48 hrs Weight 143 lb 6.4 oz Weight 143 lb 1.6 oz Physical Exam Narrative: EXAM NARRATIVE: GENERAL: In general she looks weak but is in no distress HEENT: Exam within normal limits. NECK: Supple without jugular vein distention. The carotid upstroke is normal without bruits. BACK: Exam normal. LUNGS: Clear. HEART: Regular rate and rhythm. ABDOMEN: Benign without organomegaly or tenderness. EXTREMITIES: No edema. NEUROLOGIC: Exam normal. SKIN: Unremarkable. Data : 01/01/20 04:15 01/01/20 04:15 A&P Assessment and plan (1) S/P ICD (internal cardiac defibrillator) procedure: Status: Acute Code(s): Z95.810 - Presence of automatic (implantable) cardiac defibrillator (2) S/P CABG (coronary artery bypass graft): Status: Acute Code(s): Z95.1 - Presence of aortocoronary bypass graft (3) S/P angioplasty with stent: Status: Acute Code(s): Z95.820 - Peripheral vascular angioplasty status with implants and grafts (4) Ventricular tachycardia: Status: Acute Code(s): I47.2 - Ventricular tachycardia (5) Atrial flutter, paroxysmal: Status: Acute Code(s): I48.92 - Unspecified atrial flutter (6) Syncope, cardiogenic: Status: Acute Code(s): R55 - Syncope and collapse (7) Congestive heart failure with cardiomyopathy: Status: Acute Code(s): I50.9 - Heart failure, unspecified; I42.9 - Cardiomyopathy, unspecified (8) ASHD (arteriosclerotic heart disease): Status: Acute Code(s): I25.10 - Atherosclerotic heart disease of [place] coronary artery without angina pectoris (9) Ischemic cardiomyopathy: Status: Acute Code(s): I25.5 - Ischemic cardiomyopathy (10) Dyslipidemia: Status: Acute Code(s): E78.5 - Hyperlipidemia, unspecified (11) Anticoagulant long-term use: Status: Acute Code(s): Z79.01 - 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 If she is up and around and feeling well enough she could be discharged. Her medicines should be the same as they were upon admission. Hospice has been suggested to her in the past but she has not been ready for it. She continues to slowly go downhill and is struggling quite a bit. She has an appointment with us in the clinic which she should keep. 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
[2020-01-01] MEDS: metoprolol succinate ER (24 HR) 25 mg Tablet 50 MG PO (08:48)
[2020-01-01] MEDS: PARoxetine 20 mg Tablet PO (08:48)
[2020-01-01] MEDS: acetaminophen 325 mg Tablet 650 MG PO (08:49)
[2020-01-01] MEDS: clopidogrel 75 mg Tablet PO (08:49)
[2020-01-01] MEDS: FUROsemide 40 mg Tablet PO (08:49)
[2020-01-01] MEDS: atorvastatin 40 mg Tablet 80 MG PO (08:49)
[2020-01-01] MEDS: spironolactone 25 mg Tablet PO (08:49)
[2020-01-01] MEDS: pantoprazole DR 40 mg Tablet PO (08:49)
[2020-01-01] MEDS: amiodarone 200 mg Tablet 100 MG PO (08:50)
[2020-01-01] MEDS: MEXILETINE 150 MG 150 EACH PO (08:50)
--- NOTE | 2020-01-01 09:50 | PC.SOCIAL ---
[facility] Page 2 of [facility] provided to patient with [employer] number. She verbalizes understanding. Initialed, dated, and timed and placed in chart. Copy provided to patient.
[2020-01-01 09:59] LABS: Free T4 Free Thyroxine 1.26 ng/dL (0.82-1.77); T3 Free 2.3 PG/ML (2.0-4.4)
--- NOTE | 2020-01-01 11:56 | P.DS_ITS ---
Discharge Providers Date of Admission: 12/29/19 12:30 Date of Discharge: January 01, 2020 Attending Provider at Admission: María Luo DO Attending Provider at Discharge: Reddy Estevez MD Consults: Cardiology: Dr. Grace/ Dr. Nelson. Primary Care Provider: Tan Acosta Jr, MD Diagnoses at Discharge Discharge Diagnosis (1) S/P ICD (internal cardiac defibrillator) procedure: Status: Acute (2) S/P CABG (coronary artery bypass graft): Status: Acute (3) S/P angioplasty with stent: Status: Acute (4) Ventricular tachycardia: Status: Acute (5) Atrial flutter, paroxysmal: Status: Acute (6) Syncope, cardiogenic: Status: Acute (7) Congestive heart failure with cardiomyopathy: Status: Acute (8) ASHD (arteriosclerotic heart disease): Status: Acute (9) Ischemic cardiomyopathy: Status: Acute (10) Dyslipidemia: Status: Acute (11) Anticoagulant long-term use: Status: Acute (12) Myocardial infarction: Status: Acute (13) Atrial fibrillation: Status: Acute Reason for Visit Reason for Visit: Reason For Visit: Syncope Hospital Course Discharge Summary: Angela Woodruff is a 59 year old female with end-stage ischemic cardiomyopathy (15-20%), 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 She she has a complicated cardiac history with initial work-up at [facility] in [place] many years ago. She was on transplant list at one point and was taken off when she began to do fairly well clinically. 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 She then went to [facility] for LVAD and was thought not to be a candidate. Hospice was recommended at one point, however declined by the patient. She presented on 12/29/19 to emergency room with syncopal episode. She was feeling well prior to the episode but then she had a syncopal episode without any prior precipitating/ prodromal symptoms. Her ICD fired and she was brought to the ER for further evaluation. Patient denies having any recent weight gain or noting any lower extremity edema however her daughter states that her legs were swollen this morning. Chest x-ray did not show any significant pulmonary vascular congestion however her BNP was elevated. No URI or UTI-like symptoms lately. Potassium 4 and magnesium 2.5. BUN of 28 and creatinine 1.3. Cardiology was consulted. She is essentially at the limits of what we can do for her with the ICD in place and with medications. She is at the maximum of the mexiletine and the amiodarone. It was thiught that she has been having these ICD firing due to fluid overload. He was treated with IV diuresis. She responded well to treatment and did not any more VT while admitted. ICD was interrogated. Home O2 evaluation was done and PT eval was done. She is being discharged home in hemodynamically stable condition. Physical Exam Narrative: EXAM NARRATIVE: GENERAL: In general she looks weak but is in no distress HEENT: Exam within normal limits. NECK: Supple without jugular vein distention. The carotid upstroke is normal without bruits. BACK: Exam normal. LUNGS: Clear. HEART: Regular rate and rhythm. ABDOMEN: Benign without organomegaly or tenderness. EXTREMITIES: No edema. NEUROLOGIC: Exam normal. SKIN: Unremarkable. Discharge Data Data Completed and Pending: Completed Studies During Hospitalization Category Date Time Status XR chest 1V milla ble [id number] Stat Exams 12/29/19 10:04 Completed CV echo complete* [id number] Routine Ultrasound 12/29/19 15:52 Completed Pending at discharge Category Date Time Status Blood Culture Sta t Lab 12/29/19 12:20 Results Labs from last 24 hours 01/01/20 01/01/20 01/01/20 04:15 04:15 04:15 WBC RBC Hgb Hct MCV MCH MCHC RDW Plt Count MPV Neut % (Auto) Lymph % (Auto) [place] % (Auto) Eos % (Auto) Baso % (Auto) Neut # (Auto) Lymph # (Auto) [place] # (Auto) Eos # (Auto) Baso # (Auto) Nucleated RBC % (a uto) Nucleated RBCs # PT 30.40 H INR 2.78 H Sodium 137 Potassium 3.9 Chloride 102 Carbon Dioxide 25 Anion Gap 13.9 BUN 19 Creatinine 1.1 H GFR Calculation 50.7 L Glucose 92 Calculated Osmolal ity 280 L Calcium 9.0 Total Bilirubin 1.2 AST 23 ALT 13 Alkaline Phosphata se 143 H Total Protein 6.5 L Albumin 3.4 L Globulin 3.1 Free T4 1.26 Free T3 2.3 01/01/20 04:15 WBC 5.7 RBC 4.21 Hgb 9.7 L Hct 33.4 L MCV 79.3 L MCH 23.0 L MCHC 29.0 L RDW 23.1 H Plt Count 258 MPV 10.0 Neut % (Auto) 69.4 Lymph % (Auto) 13.6 [place] % (Auto) 11.1 Eos % (Auto) 4.0 Baso % (Auto) 1.7 Neut # (Auto) 4.0 Lymph # (Auto) 0.8 [place] # (Auto) 0.6 Eos # (Auto) 0.2 Baso # (Auto) 0.1 Nucleated RBC % (a uto) 0 Nucleated RBCs # 0.0 PT INR Sodium Potassium Chloride Carbon Dioxide Anion Gap BUN Creatinine GFR Calculation Glucose Calculated Osmolal ity Calcium Total Bilirubin AST ALT Alkaline Phosphata se Total Protein Albumin Globulin Free T4 Free T3 Vitals: Last Vital Signs Temp 98.3 F 01/01/20 04:00 Pulse 60 01/01/20 11:38 Resp 19 H 01/01/20 11:38 BP 99/51 01/01/20 11:38 Pulse Ox 97 01/01/20 11:38 Discharge Plan Discharge Patient Disposition: Home, Self-Care Condition: Stable Prescriptions: Continued Spiriva with HandiHaler 18 mcg capsule, w/inhalation device 1 cap INHALATION DAILY RF: 0 furosemide 40 mg tablet 40 mg PO BID RF: 0 pantoprazole 40 mg tablet,delayed release (DR/EC) 40 mg PO DAILY RF: 0 clopidogrel 75 mg tablet 75 mg PO DAILY RF: 0 albuterol sulfate 2.5 mg /3 mL (0.083 %) solution for nebulization 2.5 mg INHALATION Q4H PRN (Reason: Shortness Of Breath) RF: 0 mexiletine 150 mg capsule 150 mg PO Q8H RF: 0 Entresto 24-26 mg tablet 1 tab PO BID RF: 0 alprazolam 0.5 mg tablet 0.5 mg PO BID PRN (Reason: unknown) RF: 0 spironolactone 25 mg tablet 25 mg PO DAILY RF: 0 potassium chloride 10 mEq capsule, extended release 20 meq PO BID RF: 0 paroxetine HCl 20 mg tablet 20 mg PO DAILY RF: 0 amiodarone 100 mg tablet 100 mg PO DAILY RF: 0 rosuvastatin [Crestor] 40 mg tablet 40 mg PO DAILY RF: 0 metoprolol succinate 25 mg tablet extended release 24 hr 50 mg PO DAILY RF: 0 fluticasone propionate [Allergy Relief (fluticasone)] 50 mcg/actuation spray,suspension 1 spray INTRANASAL BID PRN (Reason: unknown) RF: 0 nitroglycerin [Nitrostat] 0.4 mg tablet, sublingual 0.4 mg SUBLINGUAL Q5M PRN (Reason: Chest Pain) RF: 0 morphine 15 mg tablet extended release 15 mg PO BEDTIME RF: 0 mupirocin 2 % ointment See Rx Instructions .ROUTE .COMPLEX RF: 0 Narcan 4 mg/actuation spray,non-aerosol See Rx Instructions .ROUTE .COMPLEX RF: 0 warfarin 2 mg Tablet 2 mg PO DIRECTED RF: 0 warfarin 1 mg tablet 1 mg PO DIRECTED RF: 0 Discharge Orders: Discharge Order (Routine); Ordered 01/01/20 Ordered By: Reddy Estevez Referrals: [facility] [Outside] Tan Acosta Jr, MD [Primary Care Provider] - 2 weeks (Please, call for an follow-up appointment with Dr. Acosta in 7 to 10 days. ) Courtney Grace MD [Physician] - 1 month ([facility] will contact you to schedule with Dr. Grace in 1 month. ) Discharge Diet: Cardiac Discharge Activity: Resume usual activity Patient Instructions: Heart Failure (DC), Supraventricular Tachycardia (DC), Syncope (DC), CHF Stoplight Discharge Date/Time: 01/01/20 14:59 Discharge Attestations Time Spent in Discharge Care*: greater than 30 min Specific Discharge Activities: Specific discharge activities: educating patient and discussing with housing case manager/social workers/dc planners Status at Discharge: Cognitive status at discharge: cognitively intact , Behavioral status at discharge: cooperative , Functional status at discharge: other assisted ambulation Overall status at discharge: patient is back to baseline Quality Metrics Clinical Quality Measures During this hospital stay, did patient experience: None Coding Level of Care Code Acute [place] 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
== END 2020-01-01 14:59 | disposition home or self-care (01) | DRG 281 ==
LOC: ER 11:38 → CSU 14:03
PROVIDERS: Student in an Organized Health Care Education/Training Program; Admitting Provider Family Medicine; Emergency Provider Family Medicine; Family Provider Family Medicine; PCP Family Medicine; Visit Provider Student in an Organized Health Care Education/Training Program
DX: I47.2 Ventricular tachycardia (principal); I21.9 Acute myocardial infarction, unspecified; I42.9 Cardiomyopathy, unspecified; I50.20 Unspecified systolic (congestive) heart failure; I48.92 Unspecified atrial flutter; I25.10 Atherosclerotic heart disease of native coronary artery without angina pectoris; I25.5 Ischemic cardiomyopathy; E78.5 Hyperlipidemia, unspecified; I48.91 Unspecified atrial fibrillation; J44.9 Chronic obstructive pulmonary disease, unspecified; K21.9 Gastro-esophageal reflux disease without esophagitis; F32.9 Major depressive disorder, single episode, unspecified; G89.29 Other chronic pain; F45.42 Pain disorder with related psychological factors; D64.9 Anemia, unspecified; E87.70 Fluid overload, unspecified; Z66 Do not resuscitate; Z87.891 Personal history of nicotine dependence; Z95.810 Presence of automatic (implantable) cardiac defibrillator; Z95.820 Peripheral vascular angioplasty status with implants and grafts; Z95.1 Presence of aortocoronary bypass graft; Z79.01 Long term (current) use of anticoagulants; Z79.51 Long term (current) use of inhaled steroids; Z79.899 Other long term (current) drug therapy
CPT/HCPCS: 12345; 36415; 36600; 71045; 80048; 80051; 80053; 81001; 82810; 83605; 83690; 83735; 83880; 83986; 84100; 84439; 84443; 84481; 84484; 85025; 85610; 87040; 93005; 93306; 94640; 94664; 94760; 96375; 97161; 99282; J1940; J1956; J7030; J7611

== ENCOUNTER 2020-01-28 18:57 | Emergency (ER) | payer MEDICARE, SELFPAY ==
[2020-01-28 19:04] VITALS: BP 101/53; PULSE 62; RESP 18; TEMP 36.7; O2SAT 98; BMI 24.5
--- NOTE | 2020-01-28 19:14 | XRR_ITS ---
PROCEDURE INFORMATION: Exam: XR Chest, 1 View Exam date and time: 01/28/2020 7:53 PM Age: 59 years old Clinical indication: Chest pain; Type not specified; Prior surgery; Surgery date: 6+ months; Surgery type: Defib, cabg TECHNIQUE: Imaging protocol: XR of the chest Views: 1 view. COMPARISON: CR XR chest 1V portable [id number] 12/29/2019 10:08 AM FINDINGS: Tubes, catheters and devices: Stable left pacemaker. Lungs: Stable mild nonspecific interstitial opacities suggesting possible pulmonary vascular congestion or pulmonary interstitial edema. Pleural space: Unremarkable. No pleural effusion. No pneumothorax. Heart/Mediastinum: Stable CABG procedure. Mild to moderate globular cardiomegaly consistent with 4-chamber enlargment and/or pericardial effusion. Vasculature: Calcification of the thoracic aorta and/or great vessels consistent with atherosclerotic vessel disease. Bones/joints: Unremarkable. XR/XR chest 1V portable [id number] IMPRESSION: 1. Stable CABG procedure. 2. Mild to moderate globular cardiomegaly consistent with 4-chamber enlargment and/or pericardial effusion. 3. Stable mild nonspecific interstitial opacities suggesting possible pulmonary vascular congestion or pulmonary interstitial edema.
--- NOTE | 2020-01-28 19:14 | ECG_ITS ---
Measurements Intervals [place] Rate: 61 P: 92 FL: 177 QRS: -73 QRSD: 121 T: 104 QT: 440 QTc: 445 ELECTRONIC VENTRICULAR PACEMAKER ABNORMAL RHYTHM ECG Compared to ECG 12/29/2019 16:35:20 No significant changes Electronically Signed On 01-29-2020 8:21:25 CDT by Anshu Nelson M.D. [email or web address]
--- NOTE | 2020-01-28 19:16 | W.ED.CHESTPA ---
HPI - Chest Pain General: Chief Complaint: Chest Pain Stated Complaint: CHEST PAIN/ SOB Time Seen by Provider: 01/28/20 19:03 Source: patient and EMS Mode of arrival: EMS History of Present Illness: HPI narrative: 59-year-old female patient who presents to the emergency department today after her implanted pacemaker defibrillator went off. She had a similar episode about 2 months ago but at that time the defibrillator went off 4 times. She had some mild chest discomfort at that time but has none at this time. She also had some shortness of breath at that time. No nausea, no vomiting, no radiation of the pain. She took a nitro and some Benadryl on her way to the ED. MD complaint: chest discomfort Pertinent past history: coronary artery disease Onset (ago): hour(s) (1) Prior episodes: Yes Onset: during rest Pain location: left chest Pain radiation: none Severity: mild Quality: tightness Relieving factors: nothing Exacerbating factors: nothing Associated symptoms: Deny abdominal pain, dyspnea, fever(s), nausea, palpitations or vomiting Treatment prior to arrival: nitroglycerin Review of Systems General: Reports: 10 or more systems reviewed and unremarkable except in HPI and below Const: Denies: fever, chills or body aches Eyes: Denies: change in vision or blurry vision ENMT: Denies: throat pain, enlarged tonsils, painful swallowing, hoarseness, mouth pain or swelling of lips/tongue Card: Reports: chest pain; Denies: palpitations, irregular heart rhythm, edema or swelling of feet/ankles Resp: Denies: shortness of breath, productive cough or non-productive cough GI: Denies: abdominal pain, nausea or vomiting : Denies: flank pain, difficulty urinating, painful urination, urinary frequency, urinary urgency or urinary hesitancy Musc: Denies: neck pain, back pain or extremity swelling Skin/Breast: Denies: rash, itching or redness Neuro: Denies: headache, numbness in extremities or weakness in extremities Endo: Denies: excessive urination, excessive thirst or tired all the time [facility] ED PFSH: Social History Smoking and tobacco status: former smoker Alcohol intake: current Alcohol intake frequency: holidays/special occasions only Marital status: Life Partner Current gender identity: Female Josi/Muslim: [employer] Physical Exam Const: COMMON NORMALS: no apparent distress, average body habitus, oriented x3, no limitations, healthy appearing, alert and well nourished Chest: COMMONS NORMALS: inspection of chest normal and palpation of chest normal OTHER: pacemaker/debrillator noted in the left upper chest wall Resp: COMMON NORMALS: normal respiratory effort, no retractions, no use of accessory muscles and percussion normal AUSCULTATION: rales and wheezes expiratory wheezes PERCUSSION: percussion normal Cardio: COMMON NORMALS: regular rate, regular rhythm, S1 normal heart sound, S2 normal heart sound, no gallops, no clicks, no murmurs, no rub and peripheral pulses 2+ throughout RATE: regular rate RHYTHM: regular rhythm HEART SOUNDS: S1 normal and S2 normal PERIPHERAL PULSES: pulses 2+ throughout GI: COMMON NORMALS: normal to inspection, nondistended, normoactive bowel sounds, soft to palpation, non-tender, no hepatosplenomegaly, no masses and no bruits PALPATION: Yes soft and Yes no hepatosplenomegaly : COMMON NORMALS: Yes no CVA tenderness BLADDER/KIDNEY EXAM: Yes no CVA tenderness Back/Pelvis: COMMON NORMALS: no CVA tenderness Extremity: COMMON NORMALS: normal to inspection, full ROM, normal capillary refill and no calf tenderness GENERAL: Yes edema (2+ bilateral pitting edema) Neuro: COMMON NORMALS: oriented x3 SENSORIUM/ORIENTATION: Yes alert Skin: COMMON NORMALS: no rashes or lesions noted, no wounds, skin turgor normal, no jaundice, no petechiae and no mottling GENERAL SKIN EXAM: no rashes or lesions noted and turgor normal Course Reevaluation(s): Reevaluation #1: Discussed her lab and imaging findings with her. She has elevated baseline troponin, elevated proBNP, elevated creatinine. The elevated troponin may be secondary to congestive heart failure and renal failure. She may also be having a coronary syndrome. Discussed the report of the interrogation of her pacemaker which showed she had 5 events, for which were rates terminated and 1 that was terminated by defibrillation. Discussed treatment options with her-outpatient versus inpatient care. The patient would like to be evaluated by her acid bleacher, Dr. Nelson and so would like to be admitted so he can see her. She feels much better. Time: 21:15 Reevaluation #2: Discussed my conversation with Dr. Nelson with the patient. Explained to her that she can be admitted to the hospital, however it is unlikely that she will be seen by the acid bleacher unless something significant shows up on her other tests. The patient decided to be discharged home if she will not be seen by the acid bleacher. 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 She will therefore want to be discharged home. Time: 21:30 Consultations: Consultation #1: Dr. Nelson, acid bleacher. The patient is well known to him and she is end-stage cardiomyopathy. She has been evaluated in [facility] for possible heart transplant but she has been declined. She is on maximal medical therapy and nothing further can be done for her. There is really no indication to admit her as she has presented in this fashion several times in the past and each occasion has been related to congestive heart failure. He advised that we manage the heart failure and discharge the patient home, however if the patient does not want to be discharged home the hospitalist can admit her and discharge her in the morning. Time: 21:22 Vital Signs: Vital signs: Vital Signs Temperature 98.1 F 01/28/20 19:04 Pulse Rate 66 01/28/20 21:25 Respiratory Rate 18 01/28/20 21:25 Blood Pressure 110/59 01/28/20 21:25 Pulse Oximetry 100 01/28/20 21:25 MDM - Chest Pain MDM Narrative: Medical decision making narrative: 59-year-old female patient with end-stage cardiomyopathy and who has a biventricular pacemaker defibrillator. The defibrillator went off today and she came here to be evaluated. Evaluation shows congestive heart failure, and an interrogation of the pacemaker showed she did have one episode of defibrillation. After discussion with her acid bleacher and the patient informed, the patient decided to be discharged home and will follow-up outpatient. She understands to return for any new or worsening symptoms. Medical Records: Attestation: I reviewed the patient's medical records. Lab Data: Labs: Lab Results 01/28/20 01/28/20 01/28/20 Range/Units 19:10 19:10 19:10 WBC 8.8 (4.0-10.0) 10^3/ uL RBC 4.94 (4.1-5.3) 10^6/u L Hgb 11.1 L (11.5-15.3) g/dL Hct 39.8 (37.0-47.0) % MCV 80.6 L (81-99) fL MCH 22.5 L (28.0-34.0) pg MCHC 27.9 L (30.0-36.0) g/dL RDW 23.6 H (12.1-15.1) % Plt Count 304 (130-400) 10^3/c mm MPV 10.3 (7.4-10.4) fL Neut % (Auto) 72.6 % Lymph % (Auto) 10.7 % Rains % (Auto) 14.5 % Eos % (Auto) 0.7 % Baso % (Auto) 1.4 % Neut # (Auto) 6.4 (1.8-7.7) 10^3/u L Lymph # (Auto) 1.0 (0.8-4.8) 10^3/u L Rains # (Auto) 1.3 H (0.2-0.9) 10^3/u L Eos # (Auto) 0.1 (0.0-0.8) 10^3/u L Baso # (Auto) 0.1 (0.0-0.1) 10^3/u L Nucleated RBC % (a uto) 0.2 % Nucleated RBCs # 0.0 /100WBC Sodium 136 (136-145) mmol/L Potassium 3.7 (3.5-5.1) mmol/L Chloride 96 L (98-107) mmol/L Carbon Dioxide 21 L (22-29) mmol/L Anion Gap 22.7 H (5-19) BUN 30 H (8-23) mg/dL Creatinine 1.2 H (0.5-0.9) mg/dL GFR Calculation 45.8 L (90-130) mL/min Glucose 109 (65-115) mg/dL Calculated Osmolal ity 280 L (285-295) mOsm/k g Calcium 9.6 (8.5-10.5) mg/dL Total Bilirubin 2.1 H (0.15-1.2) mg/dL AST 25 (0-32) U/L ALT 12 (0-33) U/L Alkaline Phosphata se 184 H (35-105) IU/L Troponin T Baselin e 27 H (0-10) ng/mL Troponin T 120 Min [place] (0-10) ng/mL Delta Troponin T (0-10) ABS# NT-Pro-B Natriuret Pep (0-125) pg/mL Total Protein 7.3 (6.6-8.7) g/dL Albumin 4.4 (3.5-5.2) g/dL Globulin 2.9 (1.3-4.6) g/dL Urine Opiates Scre en (Negative) ng/mL Ur Barbiturates Sc reen (Negative) ng/mL Ur Phencyclidine S crn (Negative) ng/mL Ur Amphetamines Sc reen (Negative) ng/mL U Benzodiazepines Scrn (Negative) ng/mL Urine Cocaine Scre en (Negative) ng/mL U Marijuana (THC) Screen (Negative) ng/mL 01/28/20 01/28/20 01/28/20 Range/Units 19:10 20:30 21:15 WBC (4.0-10.0) 10^3/ uL RBC (4.1-5.3) 10^6/u L Hgb (11.5-15.3) g/dL Hct (37.0-47.0) % MCV (81-99) fL MCH (28.0-34.0) pg MCHC (30.0-36.0) g/dL RDW (12.1-15.1) % Plt Count (130-400) 10^3/c mm MPV (7.4-10.4) fL Neut % (Auto) % Lymph % (Auto) % Rains % (Auto) % Eos % (Auto) % Baso % (Auto) % Neut # (Auto) (1.8-7.7) 10^3/u L Lymph # (Auto) (0.8-4.8) 10^3/u L Rains # (Auto) (0.2-0.9) 10^3/u L Eos # (Auto) (0.0-0.8) 10^3/u L Baso # (Auto) (0.0-0.1) 10^3/u L Nucleated RBC % (a uto) % Nucleated RBCs # /100WBC Sodium (136-145) mmol/L Potassium (3.5-5.1) mmol/L Chloride (98-107) mmol/L Carbon Dioxide (22-29) mmol/L Anion Gap (5-19) BUN (8-23) mg/dL Creatinine (0.5-0.9) mg/dL GFR Calculation (90-130) mL/min Glucose (65-115) mg/dL Calculated Osmolal ity (285-295) mOsm/k g Calcium (8.5-10.5) mg/dL Total Bilirubin (0.15-1.2) mg/dL AST (0-32) U/L ALT (0-33) U/L Alkaline Phosphata se (35-105) IU/L Troponin T Baselin e (0-10) ng/mL Troponin T 120 Min [place] 32.21 H (0-10) ng/mL Delta Troponin T 5.21 (0-10) ABS# NT-Pro-B Natriuret Pep 7478 H (0-125) pg/mL Total Protein (6.6-8.7) g/dL Albumin (3.5-5.2) g/dL Globulin (1.3-4.6) g/dL Urine Opiates Scre en Positive H (Negative) ng/mL Ur Barbiturates Sc reen Negative (Negative) ng/mL Ur Phencyclidine S crn Negative (Negative) ng/mL Ur Amphetamines Sc reen Negative (Negative) ng/mL U Benzodiazepines Scrn Positive H (Negative) ng/mL Urine Cocaine Scre en Negative (Negative) ng/mL U Marijuana (THC) Screen Negative (Negative) ng/mL Imaging Data^: CXR: Radiologist's impression: [facility] [address] [place] [address] XRay Report Signed Patient: Angela Woodruff #: [id number] : 1960Acct#:[id number] Age/Sex: 59 / FADM Date: 01/28/20 Loc: ERRoom/Bed: Attending Dr: Ordering Provider/Ordering MD: Vikas Espinoza MD, [facility] [place] Date of Service: 01/28/20 Procedure(s): XR chest 1V portable [id number] Accession Number(s): [id number] Report Number: [id number] PROCEDURE INFORMATION: Exam: XR Chest, 1 View Exam date and time: 01/28/2020 7:53 PM Age: 59 years old Clinical indication: Chest pain; Type not specified; Prior surgery; Surgery date: 6+ months; Surgery type: Defib, cabg TECHNIQUE: Imaging protocol: XR of the chest Views: 1 view. COMPARISON: CR XR chest 1V portable [id number] 12/29/2019 10:08 AM FINDINGS: Tubes, catheters and devices: Stable left pacemaker. Lungs: Stable mild nonspecific interstitial opacities suggesting possible pulmonary vascular congestion or pulmonary interstitial edema. Pleural space: Unremarkable. No pleural effusion. No pneumothorax. Heart/Mediastinum: Stable CABG procedure. Mild to moderate globular cardiomegaly consistent with 4-chamber enlargment and/or pericardial effusion. Vasculature: Calcification of the thoracic aorta and/or great vessels consistent with atherosclerotic vessel disease. Bones/joints: Unremarkable. XR/XR chest 1V portable [id number] IMPRESSION: 1. Stable CABG procedure. 2. Mild to moderate globular cardiomegaly consistent with 4-chamber enlargment and/or pericardial effusion. 3. Stable mild nonspecific interstitial opacities suggesting possible pulmonary vascular congestion or pulmonary interstitial edema. Dictated By:Luc Aaron MD Signed By:Luc Aaron MDSigned Date/Time:01/28/202000 DD/ 58 EKG Data^: EKG 1: Attestation: I personally reviewed and interpreted this EKG as follows: EKG interpretation date: 01/28/20 EKG interpretation time: 19:27 Prior EKG tracings: not available for review Interpretation: Ventricular paced rhythm. Heart rate 61 bpm. No acute findings Pacemaker model: medtronic Pacemaker function: normal pacer function EKG 2: Attestation: I personally reviewed and interpreted this EKG as follows: EKG interpretation date: 01/28/20 EKG interpretation time: 21:39 Prior EKG tracings: available for review Interpretation: Unchanged from earlier today Discharge Plan Discharge Patient Disposition: Home, Self-Care Clinical Impression: Congestive heart failure with cardiomyopathy, ICD (implantable cardioverter-defibrillator) discharge, Ventricular tachycardia Condition: Stable Prescriptions: Continued Spiriva with HandiHaler 18 mcg capsule, w/inhalation device 1 cap INHALATION DAILY RF: 0 furosemide 40 mg tablet 40 mg PO BID RF: 0 pantoprazole 40 mg tablet,delayed release (DR/EC) 40 mg PO DAILY RF: 0 clopidogrel 75 mg tablet 75 mg PO DAILY RF: 0 albuterol sulfate 2.5 mg /3 mL (0.083 %) solution for nebulization 2.5 mg INHALATION Q4H PRN (Reason: Shortness Of Breath) RF: 0 mexiletine 150 mg capsule 150 mg PO Q8H RF: 0 Entresto 24-26 mg tablet 1 tab PO BID RF: 0 alprazolam 0.5 mg tablet 0.5 mg PO BID PRN (Reason: unknown) RF: 0 spironolactone 25 mg tablet 25 mg PO DAILY RF: 0 potassium chloride 10 mEq capsule, extended release 20 meq PO BID RF: 0 paroxetine HCl 20 mg tablet 20 mg PO DAILY RF: 0 amiodarone 100 mg tablet 100 mg PO DAILY RF: 0 rosuvastatin [Crestor] 40 mg tablet 40 mg PO DAILY RF: 0 metoprolol succinate 25 mg tablet extended release 24 hr 50 mg PO DAILY RF: 0 fluticasone propionate [Allergy Relief (fluticasone)] 50 mcg/actuation spray,suspension 1 spray INTRANASAL BID PRN (Reason: unknown) RF: 0 nitroglycerin [Nitrostat] 0.4 mg tablet, sublingual 0.4 mg SUBLINGUAL Q5M PRN (Reason: Chest Pain) RF: 0 morphine 15 mg tablet extended release 15 mg PO BEDTIME RF: 0 mupirocin 2 % ointment See Rx Instructions .ROUTE .COMPLEX RF: 0 Narcan 4 mg/actuation spray,non-aerosol See Rx Instructions .ROUTE .COMPLEX RF: 0 warfarin 2 mg Tablet 2 mg PO DIRECTED RF: 0 warfarin 1 mg tablet 1 mg PO DIRECTED RF: 0 Discharge Orders: Discharge Order (Routine); Ordered 01/28/20 Ordered By: Vikas Espinoza Referrals: Anshu Nelson MD [Physician] - 7-10 days Tan Acosta Jr, MD [Primary Care Provider] - 1-3 days Patient Instructions: Congestive Heart Failure, Pacemaker (GEN) Activity Restrictions/Additional Instructions: Return for any new or worsening symptoms. Follow-up with your primary care provider within 3 days. Follow-up with Dr. Leslie as soon as you can. Double the dose of your Lasix for the next 3 days, then return to your prior dose. Coding Level of Care Code ED Manager [employer] for Chg Fwd Exam Comprehensive
[2020-01-28 19:27] LABS: Basophils # 0.1 10^3/uL (0.0-0.1); Basophils % 1.4 %; Eosinophils # 0.1 10^3/uL (0.0-0.8); Eosinophils % 0.7 %; Hematocrit 39.8 % (37.0-47.0); Hemoglobin 11.1 g/dL (11.5-15.3); Lymphocytes % 10.7 %; Mean Corpuscular HGB Conc 27.9 g/dL (30.0-36.0); Mean Corpuscular Hemoglobin 22.5 pg (28.0-34.0); Mean Corpuscular Volume 80.6 fL (81-99); Mean Platelet Volume 10.3 fL (7.4-10.4); Monocytes # 1.3 10^3/uL (0.2-0.9); Monocytes % 14.5 %; Neutrophils # 6.4 10^3/uL (1.8-7.7); Neutrophils % 72.6 %; Nucleated Red Blood Cells % 0.2 %; Platelet Count 304 10^3/cmm (130-400); Red Blood Count 4.94 10^6/uL (4.1-5.3); Red Cell Distribution Width 23.6 % (12.1-15.1); White Blood Count 8.8 10^3/uL (4.0-10.0)
[2020-01-28 19:42] LABS: Alanine Aminotransferase 12 U/L (0-33); Albumin Level 4.4 g/dL (3.5-5.2); Alkaline Phosphatase 184 IU/L (35-105); Anion Gap 22.7 (5-19); Aspartate Amino Transferase 25 U/L (0-32); Blood Urea Nitrogen 30 mg/dL (8-23); Calcium 9.6 mg/dL (8.5-10.5); Carbon Dioxide 21 mmol/L (22-29); Chloride 96 mmol/L (98-107); Globulin 2.9 g/dL (1.3-4.6); Glomerular Filtration Rate 45.8 mL/min (90-130); Glucose 109 mg/dL (65-115); Osmolality Calculated 280 mOsm/kg (285-295); Potassium 3.7 mmol/L (3.5-5.1); Sodium 136 mmol/L (136-145); Total Bilirubin 2.1 mg/dL (0.15-1.2); Total Protein 7.3 g/dL (6.6-8.7)
[2020-01-28 19:55] LABS: Troponin(5th) Baseline 27 ng/mL (0-10)
[2020-01-28 20:26] VITALS: BP 111/61; PULSE 62; RESP 18; O2SAT 99
[2020-01-28] MEDS: ipratropium-albuterol 3 mL Neb INHALATION (20:40)
[2020-01-28 20:41] VITALS: BP 110/60; PULSE 59; PULSE 70; RESP 16; O2SAT 95
[2020-01-28 20:56] LABS: Amphetamines Screen Urine Negative (Negative); Barbiturates Screen Urine Negative (Negative); Benzodiazepines Screen Urine Positive (Negative); Cocaine Screen Urine Negative (Negative); Opiate Screen Urine Positive (Negative); PCP Screen Urine Negative (Negative); THC Screen Urine Negative (Negative)
[2020-01-28 21:00] LABS: NT Pro B Type Natriuretic Pept 7478 pg/mL (0-125)
--- NOTE | 2020-01-28 21:14 | ECG_ITS ---
Measurements Intervals [place] Rate: 66 P: 102 IN: 142 QRS: -71 QRSD: 157 T: 99 QT: 460 QTc: 483 ELECTRONIC VENTRICULAR PACEMAKER ABNORMAL RHYTHM ECG Compared to ECG 12/29/2019 16:35:20 No significant changes Electronically Signed On 01-29-2020 8:21:42 CDT by Anshu Nelson M.D. [id number]
[2020-01-28 21:25] VITALS: BP 110/59; PULSE 66; RESP 18; O2SAT 100
[2020-01-28] MEDS: FUROsemide 10 mg/mL SDV 4mL 40 MG IVP (21:42)
[2020-01-28 21:44] LABS: Troponin 5 2HR 32.21 ng/mL (0-10); Troponin 5 2HR Delta 5.21 ABS# (0-10)
[2020-01-28 22:41] VITALS: BP 111/53; PULSE 67; RESP 18; O2SAT 98
--- NOTE | 2020-01-31 11:27 | DCPLANNER ---
manager development had message to schedule a follow up appointment for patient with [facility]. manager development called [facility], spoke with Al, gave clinic patients information. manager development was told that patients information would be printed and reviewed. Clinic will call patient with appointment information, correctional case records supervisor will call for appointment information.
--- NOTE | 2020-02-08 09:31 | DCPLANNER ---
installation manager called [facility] to confirm that an appointment was scheduled for patient. installation manager spoke with Angela, was told that an appointment would be scheduled, and clinic will call patient with the appointment information.
--- NOTE | 2020-02-14 09:41 | DCPLANNER ---
Patient has a follow up appointment scheduled for Saturday, February 29, 2020 at 1:[address] Nelson. Clinic will call patient with appointment information.
--- NOTE | 2020-03-13 07:49 | DCPLANNER ---
Patient attended appointment scheduled with [facility].
== END 2020-01-28 22:42 | disposition home or self-care (01) ==
PROVIDERS: Emergency Provider Family Medicine; Family Provider Family Medicine; PCP Family Medicine
DX: I50.9 Heart failure, unspecified (principal); Z45.02 Encounter for adjustment and management of automatic implantable cardiac defibrillator; I25.5 Ischemic cardiomyopathy; I47.2 Ventricular tachycardia; I48.92 Unspecified atrial flutter; I25.10 Atherosclerotic heart disease of native coronary artery without angina pectoris; E78.5 Hyperlipidemia, unspecified; I48.91 Unspecified atrial fibrillation; I25.2 Old myocardial infarction; Z95.1 Presence of aortocoronary bypass graft; Z79.01 Long term (current) use of anticoagulants; Z87.891 Personal history of nicotine dependence
CPT/HCPCS: 12345; 71045; 80053; 80306; 83880; 84484; 85025; 93005; 94640; 96374; 96375; 99283; 99284; A9270; J1940

== ENCOUNTER 2020-02-24 14:31 | Inpatient (IN) | payer MEDICARE, SELFPAY ==
[2020-02-24] VITALS (10 sets, daily range): BP systolic 100–115; BP diastolic 52–90; PULSE 61–142; RESP 12–19; TEMP 36.5–37.1; O2SAT 97–100; BMI 26.4
--- NOTE | 2020-02-24 15:12 | PC.NURSE ---
Pt arrived to ED in noted Vtach, pt placed on Zoll with this nurse, another ED nurse and Dr Espinoza at bedside. Pt in Vtach in the 140s. VO received to cardiovert pt synced at 120J. Pt refused sedation prior to procedure. Pt cardioverted at 1500, pt tolerated procedure fair. Pt converted to Paced in the 80s immediately after, then went into an irregular rhythm appearing to be Vtach in the 200s, VO received to give 2mg IVP Versed in preparation for another cardioversion. Pt converted back to paced in the 100s just prior to administration of Versed. Medication not given. 2nd EKG obtained. Pt stable and on monitor.
--- NOTE | 2020-02-24 15:19 | XR_ITS ---
WS: [id number] XR chest 1V portable [id number] REASON FOR EXAM: syncope FINDINGS: This study shows cardiomegaly a dual electrode pacemaker seen in good position. All 4 heart chambers are enlarged. There is no definite failure changes seen There is previous sternotomy findings. XR/XR chest 1V portable [id number] IMPRESSION: Gross cardiomegaly Dual electrode pacemaker.
--- NOTE | 2020-02-24 15:20 | ECG_ITS ---
Measurements Intervals [place] Rate: 82 P: 78 CT: 142 QRS: -87 QRSD: 158 T: 78 QT: 396 QTc: 463 ELECTRONIC VENTRICULAR PACEMAKER ABNORMAL RHYTHM ECG Compared to ECG 01/28/2020 21:38:55 No significant changes Electronically Signed On 02-25-2020 8:17:08 CDT by Courtney Grace M.D. [id number] f
--- NOTE | 2020-02-24 15:33 | PC.NURSE ---
portable xray at bedside
--- NOTE | 2020-02-24 15:38 | ED_ITS ---
HPI - Syncope General: Chief Complaint: Syncope Stated Complaint: SYNCOPAL EPISODE / CYANOTIC Time Seen by Provider: 02/24/20 14:41 Source: patient and EMS Mode of arrival: EMS History of Present Illness: HPI narrative: This 59-year-old female patient with end-stage cardiomyopathy and has a pacemaker defibrillator with frequent episodes of syncope usually related to CHF exacerbation. She presents today with a syncopal episode. On arrival to the emergency department she complained of palpitations, mild chest pain MD complaint: loss of consciousness -: second(s) Associated symptoms: Reports chest pain; Deny abdominal pain, fever(s), headache(s) or nausea Review of Systems General: Reports: 10 or more systems reviewed and unremarkable except in HPI and below Const: Denies: fever, chills or body aches Eyes: Denies: change in vision or blurry vision ENMT: Denies: throat pain, enlarged tonsils, painful swallowing, hoarseness, mouth pain or swelling of lips/tongue Card: Reports: chest pain, palpitations, irregular heart rhythm, swelling of feet/ankles and syncope; Denies: edema Resp: Denies: shortness of breath, productive cough or non-productive cough GI: Denies: abdominal pain, nausea or vomiting : Denies: flank pain, difficulty urinating, painful urination, urinary frequency, urinary urgency or urinary hesitancy Musc: Denies: neck pain, back pain or extremity swelling Skin/Breast: Denies: rash, itching or redness Neuro: Denies: headache, numbness in extremities or weakness in extremities Endo: Denies: excessive urination, excessive thirst or tired all the time PFS ED PFSH: Medical History Anticoagulant long-term use ASHD (arteriosclerotic heart disease) Atrial fibrillation Congestive heart failure with cardiomyopathy Dyslipidemia Ischemic cardiomyopathy LV (left ventricular) mural thrombus Myocardial infarction Periodontal disease Ventricular tachycardia Surgical History S/P angioplasty with stent S/P CABG (coronary artery bypass graft) S/P ICD (internal cardiac defibrillator) procedure Status post tubal ligation Family History Father CAD (coronary artery disease) Myocardial infarction Mother CAD (coronary artery disease) Myocardial infarction Sister CAD (coronary artery disease) Myocardial infarction Social History Smoking and tobacco status: former smoker Alcohol intake: current Alcohol intake frequency: holidays/special occasions only Marital status: Life Partner Current gender identity: Female Josi/Congregation: Sikh Physical Exam Const: COMMON NORMALS: no apparent distress, average body habitus, oriented x3, no limitations, healthy appearing, alert and well nourished HENMT: COMMON NORMALS: normocephalic, head/scalp atraumatic and moist oral mucous membranes HEAD & SCALP: normocephalic and atraumatic Eye: COMMON NORMALS: PERRL, EOMs intact bilaterally, conjunctivae normal and no scleral icterus CONJUNCTIVA: Yes conjunctivae normal PUPIL: Yes PERRL Neck/C-Spine: COMMON NORMALS: full ROM, supple, no meningeal signs, no JVD and no carotid bruits Chest: COMMONS NORMALS: inspection of chest normal and palpation of chest normal Resp: COMMON NORMALS: normal respiratory effort, no retractions, no use of accessory muscles, clear to auscultation bilaterally and percussion normal AUSCULTATION: clear to auscultation bilaterally PERCUSSION: percussion normal Cardio: COMMON NORMALS: no JVD, S1 normal heart sound, S2 normal heart sound, no gallops, no clicks, no murmurs, no rub and peripheral pulses 2+ throughout RATE: tachycardic RHYTHM: abnormal rhythm HEART SOUNDS: S1 normal and S2 normal PERIPHERAL PULSES: pulses 2+ throughout GI: COMMON NORMALS: normal to inspection, nondistended, normoactive bowel sounds, soft to palpation, non-tender, no hepatosplenomegaly, no masses and no bruits PALPATION: Yes soft and Yes no hepatosplenomegaly : COMMON NORMALS: Yes no CVA tenderness BLADDER/KIDNEY EXAM: Yes no CVA tenderness Back/Pelvis: COMMON NORMALS: no CVA tenderness Extremity: COMMON NORMALS: normal to inspection, full ROM, normal capillary refill and no calf tenderness GENERAL: Yes edema (2+) Neuro: COMMON NORMALS: oriented x3 SENSORIUM/ORIENTATION: Yes alert MENINGEAL SIGNS: Yes no meningeal signs Skin: COMMON NORMALS: no rashes or lesions noted, no wounds, skin turgor normal, no jaundice, no petechiae and no mottling GENERAL SKIN EXAM: no rashes or lesions noted and turgor normal Course Consultations: Consultation #1: Dr. Sweeney, hospitalist. He kindly accepted the patient to his service. Consultation #2: Dr. Lucas, course instructor. Patient can be admitted and monitored. She should be diuresed with IV Lasix. Pacemaker will need to be reprogrammed. will see the patient in the hospital. Vital Signs: Vital signs: Vital Signs Temperature 97.7 F 02/24/20 14:33 Pulse Rate 61 02/24/20 19:14 Respiratory Rate 17 02/24/20 19:14 Blood Pressure 115/62 02/24/20 19:14 Pulse Oximetry 100 02/24/20 19:14 MDM - Syncope MDM Narrative: Medical decision making narrative: 59-year-old female patient with end-stage cardiomyopathy who presented to the emergency department following a syncopal episode. She has a dual-chamber pacemaker defibrillator. On arrival to the emergency department she was in V. tach with a heart rate in the 140s. She was also hypotensive at the time. Because she was not stable a decision was made to electrically cardiovert her and she was successfully cardioverted after a single shock. Evaluation in the emergency department showed she is in CHF exacerbation. She is admitted for further evaluation and management. Cardiology was consulted and he advised the patient be diuresed with 40 mg of IV Lasix and she will need her defibrillator reprogrammed to treat at a lower heart rate. Lab Data: Labs: Lab Results 02/24/20 02/24/20 02/24/20 Range/Units 14:58 14:58 14:58 WBC 7.6 (4.0-10.0) 10^3/ uL RBC 5.03 (4.1-5.3) 10^6/u L Hgb 11.1 L (11.5-15.3) g/dL Hct 39.6 (37.0-47.0) % MCV 78.7 L (81-99) fL MCH 22.1 L (28.0-34.0) pg MCHC 28.0 L (30.0-36.0) g/dL RDW 23.4 H (12.1-15.1) % Plt Count 299 (130-400) 10^3/c mm MPV 10.2 (7.4-10.4) fL Neut % (Auto) 83.5 % Lymph % (Auto) 4.7 % [place] % (Auto) 10.0 % Eos % (Auto) 0.1 % Baso % (Auto) 1.4 % Neut # (Auto) 6.4 (1.8-7.7) 10^3/u L Lymph # (Auto) 0.4 L (0.8-4.8) 10^3/u L [place] # (Auto) 0.8 (0.2-0.9) 10^3/u L Eos # (Auto) 0.0 (0.0-0.8) 10^3/u L Baso # (Auto) 0.1 (0.0-0.1) 10^3/u L Nucleated RBC % (a uto) 0 % Nucleated RBCs # 0.0 /100WBC Sodium 135 L (136-145) mmol/L Potassium 4.2 (3.5-5.1) mmol/L Chloride 97 L (98-107) mmol/L Carbon Dioxide 24 (22-29) mmol/L Anion Gap 18.2 (5-19) BUN 22 (8-23) mg/dL Creatinine 1.4 H (0.5-0.9) mg/dL GFR Calculation 38.4 L (90-130) mL/min Glucose 119 H (65-115) mg/dL Calculated Osmolal ity 278 L (285-295) mOsm/k g Calcium 8.8 (8.5-10.5) mg/dL Total Bilirubin 2.1 H (0.15-1.2) mg/dL AST 24 (0-32) U/L ALT 11 (0-33) U/L Alkaline Phosphata se 151 H (35-105) IU/L Troponin T Baselin e 31 H (0-10) ng/mL Troponin T 120 Min terrell (0-10) ng/mL Delta Troponin T (0-10) ABS# NT-Pro-B Natriuret Pep 86620 H (0-125) pg/mL Total Protein 7.5 (6.6-8.7) g/dL Albumin 4.2 (3.5-5.2) g/dL Globulin 3.3 (1.3-4.6) g/dL Urine Color (Yellow) Urine Appearance (CLEAR) Urine pH (5-7) Ur Specific Gravit y (1.005-1.030) Urine Protein (Negative) Urine Glucose (UA) (Normal) Urine Ketones (Negative) Urine Blood (Negative) Urine Nitrate (Negative) Urine Bilirubin (NEGATIVE) Urine Urobilinogen (Negative) mg/dL Ur Leukocyte Betzy ase (Negative) Urine RBC (0-2) /hpf Urine WBC (0-5) /hpf Ur Squamous Epith Cells (0-5) Urine Bacteria (NONE) 02/24/20 02/24/20 Range/Units 16:40 17:59 WBC (4.0-10.0) 10^3/ uL RBC (4.1-5.3) 10^6/u L Hgb (11.5-15.3) g/dL Hct (37.0-47.0) % MCV (81-99) fL MCH (28.0-34.0) pg MCHC (30.0-36.0) g/dL RDW (12.1-15.1) % Plt Count (130-400) 10^3/c mm MPV (7.4-10.4) fL Neut % (Auto) % Lymph % (Auto) % Har[place] % (Auto) % Eos % (Auto) % Baso % (Auto) % Neut # (Auto) (1.8-7.7) 10^3/u L Lymph # (Auto) (0.8-4.8) 10^3/u L [place] # (Auto) (0.2-0.9) 10^3/u L Eos # (Auto) (0.0-0.8) 10^3/u L Baso # (Auto) (0.0-0.1) 10^3/u L Nucleated RBC % (a uto) % Nucleated RBCs # /100WBC Sodium (136-145) mmol/L Potassium (3.5-5.1) mmol/L Chloride (98-107) mmol/L Carbon Dioxide (22-29) mmol/L Anion Gap (5-19) BUN (8-23) mg/dL Creatinine (0.5-0.9) mg/dL GFR Calculation (90-130) mL/min Glucose (65-115) mg/dL Calculated Osmolal ity (285-295) mOsm/k g Calcium (8.5-10.5) mg/dL Total Bilirubin (0.15-1.2) mg/dL AST (0-32) U/L ALT (0-33) U/L Alkaline Phosphata se (35-105) IU/L Troponin T Baselin e (0-10) ng/mL Troponin T 120 Min terrell 36.84 H (0-10) ng/mL Delta Troponin T 5.84 (0-10) ABS# NT-Pro-B Natriuret Pep (0-125) pg/mL Total Protein (6.6-8.7) g/dL Albumin (3.5-5.2) g/dL Globulin (1.3-4.6) g/dL Urine Color Yellow (Yellow) Urine Appearance Clear (CLEAR) Urine pH 6 (5-7) Ur Specific Gravit y 1.015 (1.005-1.030) Urine Protein 1+ H (Negative) Urine Glucose (UA) Norm (Normal) Urine Ketones Negative (Negative) Urine Blood Neg (Negative) Urine Nitrate Negative (Negative) Urine Bilirubin Neg (NEGATIVE) Urine Urobilinogen 4 H (Negative) mg/dL Ur Leukocyte Betzy ase Negative (Negative) Urine RBC None (0-2) /hpf Urine WBC None (0-5) /hpf Ur Squamous Epith Cells 0-4 H (0-5) Urine Bacteria Trace (NONE) Imaging Data^: CXR: Radiologist's impression: [place] [address] XRay Report Signed Patient: Angela Woodruff AUnshane #: [id number] : 1960Acct#:[id number] Age/Sex: 59 / FADM Date: 02/24/20 Loc: ERRoom/Bed: Attending Dr: Ordering Provider/Ordering MD: Vikas [place]za [place] [facility] [place] Service: 02/24/20 Procedure(s): XR chest 1V portable 79595 Accession Number(s): [id number] Report Number: [id number] WS: [id number] XR chest 1V portable [id number] REASON FOR EXAM: syncope FINDINGS: This study shows cardiomegaly a dual electrode pacemaker seen in good position. All 4 heart chambers are enlarged. There is no definite failure changes seen There is previous sternotomy findings. XR/XR chest 1V portable 92260 IMPRESSION: Gross cardiomegaly Dual electrode pacemaker. Dictated By:Mehul Ortiz DO Signed By:Mehul Ortiz DOSigned Date/Time:02/24/201537 DD/ EKG Data^: EKG 1: Attestation: I personally reviewed and interpreted this EKG as follows: EKG interpretation date: 02/24/20 EKG interpretation time: 14:45 Prior EKG tracings: available for review Interpretation: Atrial flutter, heart rate 141 bpm Intraventricular conduction delay. EKG 2: Attestation: I personally reviewed and interpreted this EKG as follows: EKG interpretation date: 02/24/20 EKG interpretation time: 15:07 Prior EKG tracings: available for review Interpretation: Post electronic cardioversion. Ventricular paced rhythm. Heart rate 82 bpm. EKG 3: Attestation: I personally reviewed and interpreted this EKG as follows: EKG interpretation date: 02/24/20 EKG interpretation time: 19:27 Prior EKG tracings: available for review Interpretation: Paced rhythm unchanged from last EKG Critical Care Time Critical Care Time: Critical Care Time: Yes Total Critical Care Time: 30 Attestation: This case had a high probability of a clinically significant, sudden, or life threatening deterioration of this patient's condition which required my full and direct attention, intervention and personal management. Discharge Plan Discharge Patient Disposition: Admitted As Inpatient Admit Provider: Bill Sweeney Clinical Impression: Ventricular tachycardia, Atrial fibrillation, Congestive heart failure with cardiomyopathy Condition: Stable Interventions: ED Discharge Assessment Last Done: 02/24/20 19:14 ED Charges Last Done: 02/24/20 15:23 Discharge Date/Time: 02/24/20 19:26 Coding Level of Care Code ED Physical Therapist Center Manager for Chg Fwd Exam Comprehensive
[2020-02-24 16:09] LABS: Basophils # 0.1 10^3/uL (0.0-0.1); Basophils % 1.4 %; Eosinophils % 0.1 %; Hematocrit 39.6 % (37.0-47.0); Hemoglobin 11.1 g/dL (11.5-15.3); Lymphocytes # 0.4 10^3/uL (0.8-4.8); Lymphocytes % 4.7 %; Mean Corpuscular Hemoglobin 22.1 pg (28.0-34.0); Mean Corpuscular Volume 78.7 fL (81-99); Mean Platelet Volume 10.2 fL (7.4-10.4); Monocytes # 0.8 10^3/uL (0.2-0.9); Neutrophils # 6.4 10^3/uL (1.8-7.7); Neutrophils % 83.5 %; Nucleated Red Blood Cells % 0 %; Platelet Count 299 10^3/cmm (130-400); Red Blood Count 5.03 10^6/uL (4.1-5.3); Red Cell Distribution Width 23.4 % (12.1-15.1); White Blood Count 7.6 10^3/uL (4.0-10.0)
[2020-02-24 16:27] LABS: Troponin(5th) Baseline 31 ng/mL (0-10)
[2020-02-24] MEDS: sodium chloride 0.9% 250 ML 999 ML IV (16:29)
[2020-02-24 16:35] LABS: Alanine Aminotransferase 11 U/L (0-33); Albumin Level 4.2 g/dL (3.5-5.2); Alkaline Phosphatase 151 IU/L (35-105); Anion Gap 18.2 (5-19); Aspartate Amino Transferase 24 U/L (0-32); Blood Urea Nitrogen 22 mg/dL (8-23); Calcium 8.8 mg/dL (8.5-10.5); Carbon Dioxide 24 mmol/L (22-29); Chloride 97 mmol/L (98-107); Globulin 3.3 g/dL (1.3-4.6); Glomerular Filtration Rate 38.4 mL/min (90-130); Glucose 119 mg/dL (65-115); NT Pro B Type Natriuretic Pept 15383 pg/mL (0-125); Osmolality Calculated 278 mOsm/kg (285-295); Potassium 4.2 mmol/L (3.5-5.1); Sodium 135 mmol/L (136-145); Total Bilirubin 2.1 mg/dL (0.15-1.2); Total Protein 7.5 g/dL (6.6-8.7)
[2020-02-24 17:03] LABS: Troponin 5 2HR 36.84 ng/mL (0-10); Troponin 5 2HR Delta 5.84 ABS# (0-10)
--- NOTE | 2020-02-24 17:41 | PC.NURSE ---
pacemaker interrogation performed at bedside. ED physician at bedside
--- NOTE | 2020-02-24 18:38 | PC.NURSE ---
attempted to call report to Tae Arthur-nurse refused to take report at this time
--- NOTE | 2020-02-24 19:20 | PM.HP ---
Providers/Chief Complaint Admitting Physician: Bill Sweeney Primary Care Provider: Tan Acosta Jr, MD Chief Complaint: SYNCOPAL EPISODE / CYANOTIC History of Present Illness Angela Woodruff is a 59 year old lady with end stage heart failure, s/p AICD, CAD, on optimum medical management, following with cardiology in office is placed in observation after an episode of syncope today subsequently with noted VT in ER likely also responsible for the first episode at 11:30 in the morning when she went out to check on her santos. Her AICD did not fire and she required manual cardioversion. She was confirmed to have episodes of VT on interrogation of the device subsequently. She is also sensed to be in fluid overload. BNP is elevated as well, although she appears to be in mild NICK on CKD compared to her baseline currently with Cr of 1.4 After the cardioversion she is noted with She complains of being weak and having no energy. She has been having constipation and poor appetite. She is chronically on 2-2.5L of oxygen at home, although feels that this has not been enough recently. Review of Systems Const: Denies: fever, chills, body aches or malaise Eyes: Denies: change in vision or eye redness ENMT: Denies: throat pain, oral sores/lesions or ear pain Card: Reports: edema, syncope, shortness of breath on exertion, shortness of breath when lying down and bluish discoloration of hands/feet; Denies: chest pain or pre-syncope Resp: Denies: shortness of breath, productive cough, change in phlegm color or coughing up blood GI: Reports: nausea; Denies: abdominal pain, vomiting, diarrhea, constipation, blood in stool or black tarry stool : Denies: flank pain, urinary frequency or blood in urine Musc: Denies: back pain, joint swelling or redness Skin/Breast: Denies: rash, sores or new lesion Neuro: Denies: headache, numbness in extremities, weakness in extremities, dizziness, confusion or seizure-like activity Endo: Denies: excessive urination or excessive thirst Dirk/Lymph: Denies: easy bleeding or purpura All/Imm: Denies: hives, throat swelling or tongue swelling Medications/Allergies Home Medications Medication Instructions Recorded Confirmed Last Taken Type albuterol sulfate 2.5 mg INHALATION Q4H PRN 11/09/19 02/24/20 Unknown History alprazolam 0.5 mg tablet 0.5 mg PO BID PRN 11/09/19 02/24/20 02/24/20 History 0.25mg amiodarone 100 mg tablet 100 mg PO DAILY 11/09/19 02/24/20 02/24/20 History clopidogrel 75 mg tablet 75 mg PO DAILY 11/09/19 02/24/20 02/24/20 History fluticasone propionate 50 1 spray INTRANASAL BID PRN 11/09/19 02/24/20 Unknown History mcg/actuation nasal spray,suspension furosemide 40 mg tablet 40 mg PO BID 11/09/19 02/24/20 02/24/20 12:00 History metoprolol succinate 25 mg 50 mg PO DAILY 11/09/19 02/24/20 02/24/20 History tablet,extended release 24 hr mexiletine 150 mg capsule 150 mg PO Q8H 11/09/19 02/24/20 02/24/20 12:00 History nitroglycerin 0.4 mg sublingual 0.4 mg SUBLINGUAL Q5M PRN 11/09/19 02/24/20 02/24/20 History tablet pantoprazole 40 mg tablet,delayed 40 mg PO DAILY 11/09/19 02/24/20 Unknown History release paroxetine HCl 20 mg tablet 20 mg PO DAILY 11/09/19 02/24/20 12/29/19 History potassium chloride 10 mEq 20 meq PO BID 11/09/19 02/24/20 02/24/20 12:00 History capsule,extended release rosuvastatin 40 mg tablet 40 mg PO DAILY 11/09/19 02/24/20 02/23/20 History sacubitril 24 mg-valsartan 26 mg 1 tab PO BID 11/09/19 02/24/20 02/24/20 History tablet spironolactone 25 mg tablet 25 mg PO DAILY 11/09/19 02/24/20 Unknown History tiotropium bromide 18 mcg capsule 1 cap INHALATION DAILY 11/09/19 02/24/20 Unknown History with inhalation device Narcan See Rx Instructions .ROUTE .COMPLEX 12/29/19 02/24/20 Unknown History morphine 15 mg PO BEDTIME 12/29/19 02/24/20 02/23/20 History mupirocin See Rx Instructions .ROUTE .COMPLEX 12/29/19 02/24/20 Unknown History nystatin 5 ml PO QID 02/24/20 02/24/20 Unknown History warfarin See Rx Instructions .ROUTE .COMPLEX 02/24/20 02/24/20 Unknown History Allergies Allergy/AdvReac Type Severity Reaction Status Date / Time No Known Allergies Allergy Unverified 11/10/19 13:03 PFSH Acute PFSH: Medical History Anticoagulant long-term use ASHD (arteriosclerotic heart disease) Atrial fibrillation Congestive heart failure with cardiomyopathy Dyslipidemia Ischemic cardiomyopathy LV (left ventricular) mural thrombus Myocardial infarction Periodontal disease Ventricular tachycardia Surgical History S/P angioplasty with stent S/P CABG (coronary artery bypass graft) S/P ICD (internal cardiac defibrillator) procedure Status post tubal ligation Family History Father CAD (coronary artery disease) Myocardial infarction Mother CAD (coronary artery disease) Myocardial infarction Sister CAD (coronary artery disease) Myocardial infarction Social History Smoking and tobacco status: former smoker Alcohol intake: current Alcohol intake frequency: holidays/special occasions only Marital status: Life Partner Current gender identity: Female Josi/Cheondoism: Adventism Vitals/I&O/Wt Last Vital Signs Temp 97.7 F 02/24/20 14:33 Pulse 61 02/24/20 19:14 Resp 17 02/24/20 19:14 BP 115/62 02/24/20 19:14 Pulse Ox 100 02/24/20 19:14 02/24/20 02/24/20 02/24/20 06:59 14:59 22:59 Intake Total 250 / 250 Balance 250 / 250 Weight last 48 hrs Weight 63.503 kg Physical Exam Const: COMMON NORMALS: oriented x3 GENERAL APPEARANCE: frail appearing OTHER: Generally weak, pale. HENMT: COMMON NORMALS: oropharynx normal Neck/C-Spine: COMMON NORMALS: no JVD (But is sitting up) Resp: COMMON NORMALS: normal respiratory effort and clear to auscultation bilaterally AUSCULTATION: clear to auscultation bilaterally Cardio: COMMON NORMALS: no JVD, regular rhythm, S1 normal heart sound, S2 normal heart sound and no murmurs RHYTHM: regular rhythm HEART SOUNDS: S1 normal and S2 normal GI: COMMON NORMALS: normal to inspection, nondistended, normoactive bowel sounds, soft to palpation and non-tender PALPATION: Yes soft Extremity: COMMON NORMALS: no joint enlargement GENERAL: Yes edema and Yes pallor Neuro: COMMON NORMALS: oriented x3 and moves all extremities Skin: COMMON NORMALS: no rashes or lesions noted GENERAL SKIN EXAM: no rashes or lesions noted and ecchymosis Data : 02/24/20 14:58 02/24/20 14:58 A&P Assessment and plan (1) Ventricular tachycardia: Episode of syncope around 1130 this morning. In ER noted to be in ventricular tachycardia. Her AICD did not fire. VT confirmed on interrogation of device. Reportedly also sensed to be in fluid overload per discussion of ER physician with [employer]. Underwent manual electric cardioversion in the ER. Subsequently blood pressures have been soft. Denies chest pain. Potassium is 4.2. Check magnesium. At home on amiodarone 100 mg daily. Mexiletine 150 mg every 8 hours. Severe cardiomyopathy with systolic congestive heart failure. Appreciate cardiology evaluation regarding any necessary adjustments to AICD as it appears device has not been firing, and she reports other prior syncope events, previous one about 2 weeks ago. It appears heart rate may be below cardioversion threshold. Observation overnight. Status: Acute (2) Syncope, cardiogenic: As above. Status: Acute (3) Congestive heart failure with cardiomyopathy: With peripheral edema, orthopnea. She appears to have some fluid overload, although the same time says has been having more difficult time with producing urine even with increased dose of Lasix since October. At this time we will continue home dose Lasix. Blood pressure is soft. Appreciate cardiology assessment and recommendation regarding additional changes in diuretic dose/utility of dobutamine in the setting of soft blood pressures and heart failure. Optimization of medical therapy. Status: Acute (4) Acute kidney injury: Creatinine 1.4 this is somewhat worse than her usual 1.2-1.3 baseline. She seems has not been aware that she has chronic kidney disease. Suspect likely cardiorenal syndrome, possibly episodes of hypotension with recurrence of ventricular tachycardia. Discussed with her to avoid NSAIDs, she states does not take any currently. Status: Acute Additional A&P Information Supratherapeutic INR: On 02/20. For now we will give 1 mg warfarin. Recheck INR in the morning. Chronic anticoagulation due to history of LV thrombus COPD: Without exacerbation Chronic oxygen dependence Depression GERD Chronic pain on daily opioids Attestations Medical Necessity Statement*: Place in observation. Coding Level of Care Code Acute [employer] for [employer] Diagnoses Ventricular tachycardia I47.2 Syncope, cardiogenic R55 Congestive heart failure with cardiomyopathy I50.9; I42.9 Acute kidney injury N17.9
--- NOTE | 2020-02-24 19:23 | PC.NURSE ---
EKG done at 1920 and shown to ER doctor
[2020-02-24 19:28] LABS: Add Urine Microscopic? YES; Bilirubin Urine Neg (NEGATIVE); Blood Urine Neg (Negative); Glucose Urine UA Norm (Normal); Ketones Urine Negative (Negative); Leukocyte Esterase Urine Negative (Negative); Nitrate Urine Negative (Negative); Protein Urine 1+ (Negative); Specific Gravity, Urine 1.015 (1.005-1.030); Urine Appearance Clear (CLEAR); Urine Color Yellow (Yellow); Urobilinogen Urine 4 mg/dL (Negative); pH Urine 6 (5-7)
[2020-02-24 19:29] LABS: Add Urine Culture? No; Bacteria Urine TRACE; Squamous Epithelial Cell Urine 0-4 (0-5)
--- NOTE | 2020-02-24 19:38 | P.CONIM_ITS ---
Providers/Reason For Consult Consulting Physican/Specialty*: DAVIE Lucas MD/cardiology Reason for Consult*: Patient with history of cardiomyopathy, coronary artery disease, presenting with syncope/tachycardia Attending Physician: Bill Sweeney Primary Care Provider: Tan Acosta Jr, MD History of Present Illness History of Present Illness Angela Woodruff is a 59 year old female with a history of ischemic cardiomyopathy and severe LV systolic dysfunction, is admitted to hospital through the emergency room, where she presented with an episode of syncope. Apparently she was found to be in wide-complex tachycardia with a heart rate in the 140s. She was hypotensive with a systolic blood pressure in the 70s. She was electrically cardioverted in the emergency room with 120 J of biphasic current. Patient is currently staying in the paced ventricular rhythm, heart rate of 70 bpm. Her current systolic blood pressure is in the 100. She seems to be almost back to her baseline. She denies any chest pain or palpitation. She has a feeling of generalized weakness/fatigue. Patient is known to have chronic systolic heart failure and end-stage heart disease. Apparently she was evaluated at the heart failure/ transplant clinic at [facility] and was told not to be a candidate for heart transplant. She used to be followed up at the [facility] in [place]. In the recent months, she had multiple hospital admissions/ER visits for decompensated heart failure and ICD firing. She was advised by her marine driller [place] to go under hospice care. But the patient refused. She is being followed by Dr. Nelson at the heart care services. This morning, patient was walking in her yard looking at some santos. All of a sudden, she started getting fainty and then completely passed out. Her daughter called the ambulance and was brought to the hospital. Patient has a HOOP ROLLS OPERATOR-D device. Based on the interrogation reports, she had total of 3 antitachycardia pacing today. Her ventricular rate was in the 148 to 158 bpm. In the emergency room, she was found to be at a rate of 138-140 bpm. Her electrolytes were fairly within normal limits. The BNP was found to be elevated in the 15,000 range. She denies any chest pain or shortness of breath. Patient has a longstanding history of atherosclerotic heart disease. She apparently had a four-vessel coronary bypass surgery many years ago at the [facility] in [place]. Since then, she had multiple coronary interventions. Lately she has not had any chest pain. Her current troponin T has no significant delta. Review of Systems Narrative: CONSTITUTIONAL: No fever or chills. Generalized fatigue/weakness. EYES: No blurring of vision or other visual disturbances lately. ENT: No hoarseness of voice, auditory disturbances or sore throat. CARDIOVASCULAR: As mentioned above. RESPIRATORY: Baseline shortness of breath with activities. Patient has class III heart failure symptoms at home GASTROINTESTINAL: No hematemesis or melena. GENITOURINARY: No dysuria or hematuria. INTEGUMENTARY: Chronic edema of the lower extremities. NEURO: No transient ischemic attacks or amaurosis. PSYCHIATRIC: No history of psychosis or major depression. HEMATOLOGIC: No bleeding disorders or significant anemia. ENDOCRINE: No history of polyuria or polydipsia. MUSCULOSKELETAL: No recent joint pain or swelling. ALLERGY/IMMUNOLOGY: As mentioned above. Meds/Allergies Home Medications and Allergies Home Medications Medication Instructions Recorded Confirmed Last Taken Type albuterol sulfate 2.5 mg INHALATION Q4H PRN 11/09/19 02/24/20 Unknown History alprazolam 0.5 mg tablet 0.5 mg PO BID PRN 11/09/19 02/24/20 02/24/20 History 0.25mg amiodarone 100 mg tablet 100 mg PO DAILY 11/09/19 02/24/20 02/24/20 History clopidogrel 75 mg tablet 75 mg PO DAILY 11/09/19 02/24/20 02/24/20 History fluticasone propionate 50 1 spray INTRANASAL BID PRN 11/09/19 02/24/20 Unknown History mcg/actuation nasal spray,suspension furosemide 40 mg tablet 40 mg PO BID 11/09/19 02/24/20 02/24/20 12:00 History metoprolol succinate 25 mg 50 mg PO DAILY 11/09/19 02/24/20 02/24/20 History tablet,extended release 24 hr mexiletine 150 mg capsule 150 mg PO Q8H 11/09/19 02/24/20 02/24/20 12:00 History nitroglycerin 0.4 mg sublingual 0.4 mg SUBLINGUAL Q5M PRN 11/09/19 02/24/20 02/24/20 History tablet pantoprazole 40 mg tablet,delayed 40 mg PO DAILY 11/09/19 02/24/20 Unknown Hist ory release paroxetine HCl 20 mg tablet 20 mg PO DAILY 11/09/19 02/24/20 12/29/19 History potassium chloride 10 mEq 20 meq PO BID 11/09/19 02/24/20 02/24/20 12:00 History capsule,extended release rosuvastatin 40 mg tablet 40 mg PO DAILY 11/09/19 02/24/20 02/23/20 History sacubitril 24 mg-valsartan 26 mg 1 tab PO BID 11/09/19 02/24/20 02/24/20 History tablet spironolactone 25 mg tablet 25 mg PO DAILY 11/09/19 02/24/20 Unknown History tiotropium bromide 18 mcg capsule 1 cap INHALATION DAILY 11/09/19 02/24/20 Unknown History with inhalation device Narcan See Rx Instructions .ROUTE .COMPLEX 12/29/19 02/24/20 Unknown History morphine 15 mg PO BEDTIME 12/29/19 02/24/20 02/23/20 History mupirocin See Rx Instructions .ROUTE .COMPLEX 12/29/19 02/24/20 Unknown History nystatin 5 ml PO QID 02/24/20 02/24/20 Unknown History warfarin See Rx Instructions .ROUTE .COMPLEX 02/24/20 02/24/20 Unknown History Allergies Allergy/AdvReac Type Severity Reaction Status Date / Time No Known Allergies Allergy Unverified 11/10/19 13:03 PFSH Acute PFSH: Medical History (Updated 02/24/20 @ 21:06 by Wojciech Lucas MD) Acute on chronic systolic heart failure Anticoagulant long-term use ASHD (arteriosclerotic heart disease) Atherosclerotic heart disease of [place] coronary artery without angina pectoris Atrial fibrillation Congestive heart failure with cardiomyopathy Dyslipidemia Ischemic cardiomyopathy LV (left ventricular) mural thrombus Myocardial infarction Periodontal disease Ventricular tachycardia Surgical History S/P angioplasty with stent S/P CABG (coronary artery bypass graft) S/P ICD (internal cardiac defibrillator) procedure Status post tubal ligation Family History Father CAD (coronary artery disease) Myocardial infarction Mother CAD (coronary artery disease) Myocardial infarction Sister CAD (coronary artery disease) Myocardial infarction Social History Smoking and tobacco status: former smoker Alcohol intake: current Alcohol intake frequency: holidays/special occasions only Marital status: Life Partner Current gender identity: Female Josi/Mosque: Spiritism Vitals/I&O/Wt Last Vital Signs Temp 97.7 F 02/24/20 14:33 Pulse 61 02/24/20 19:14 Resp 17 02/24/20 19:14 BP 115/62 02/24/20 19:14 Pulse Ox 100 02/24/20 19:14 02/24/20 02/24/20 02/24/20 06:59 14:59 22:59 Intake Total 250 / 250 Balance 250 / 250 Weight last 48 hrs Weight 140 lb Physical Exam Narrative: EXAM NARRATIVE: GENERAL: The patient is alert and oriented times three. Not in any acute distress. Lethargic, ill looking HEENT: Minimal pallor, no icterus or lymphadenopathy. The pupils are reactant to light. Oral cavity: There are no mucous membrane lesions. Funduscopic examination: Fundus is not visualized NECK: Trachea appears to be central. No masses noted. No JVD or thyromegaly appreciated. No carotid bruit. RESPIRATORY: Chest is symmetrical. No intercostals muscle retraction or any accessory muscle activation. There is no chest wall tenderness. Breath sounds are heard bilaterally. No rales or rhonchi heard. No evidence of any consolidation. BREASTS: Deferred. HEART: The heart sounds are somewhat muffled. Soft S3. Short systolic murmur in the mitral area. No diastolic murmurs. No pericardial rub. ABDOMEN: No vessel pulsations or distention. No tenderness. No organomegaly appreciated. No abdominal bruit. Bowel sounds are normally heard. Minimal abdominal wall edema : Deferred. RECTAL: Deferred. LYMPHATIC: No lymphadenopathy noted in the neck or groin. EXTREMITIES: 2-3+ edema both lower extremities. No cyanosis. Peripheral pulses are palpable but weak bilaterally MUSCULOSKELETAL: No acute joint deformities or swelling SKIN: There are no significant scars or skin rash noted. NEUROPSYCHIATRIC: The patient is alert and oriented x3. No focal motor deficits. Data Labs: Other Labs: Abnormal lab results 02/24/20 02/24/20 02/24/20 Range/Units 14:58 14:58 14:58 Hgb 11.1 L (11.5-15.3) g/dL MCV 78.7 L (81-99) fL MCH 22.1 L (28.0-34.0) pg MCHC 28.0 L (30.0-36.0) g/dL RDW 23.4 H (12.1-15.1) % Lymph # (Auto) 0.4 L (0.8-4.8) 10^3/u L Sodium 135 L (136-145) mmol/L Chloride 97 L (98-107) mmol/L Creatinine 1.4 H (0.5-0.9) mg/dL GFR Calculation 38.4 L (90-130) mL/min Glucose 119 H (65-115) mg/dL Calculated Osmolal ity 278 L (285-295) mOsm/k g Total Bilirubin 2.1 H (0.15-1.2) mg/dL Alkaline Phosphata se 151 H (35-105) IU/L Troponin T Baselin e 31 H (0-10) ng/mL Troponin T 120 Min [place] (0-10) ng/mL NT-Pro-B Natriuret Pep 95445 H (0-125) pg/mL Urine Protein (Negative) Urine Urobilinogen (Negative) mg/dL Ur Squamous Epith Cells (0-5) 02/24/20 02/24/20 Range/Units 16:40 17:59 Hgb (11.5-15.3) g/dL MCV (81-99) fL MCH (28.0-34.0) pg MCHC (30.0-36.0) g/dL RDW (12.1-15.1) % Lymph # (Auto) (0.8-4.8) 10^3/u L Sodium (136-145) mmol/L Chloride (98-107) mmol/L Creatinine (0.5-0.9) mg/dL GFR Calculation (90-130) mL/min Glucose (65-115) mg/dL Calculated Osmolal ity (285-295) mOsm/k g Total Bilirubin (0.15-1.2) mg/dL Alkaline Phosphata se (35-105) IU/L Troponin T Baselin e (0-10) ng/mL Troponin T 120 Min [place] 36.84 H (0-10) ng/mL NT-Pro-B Natriuret Pep (0-125) pg/mL Urine Protein 1+ H (Negative) Urine Urobilinogen 4 H (Negative) mg/dL Ur Squamous Epith Cells 0-4 H (0-5) Imaging^: CXR: My impression: Moderate cardiomegaly. No acute lung infiltrate. HOOP ROLLS OPERATOR-D device in place with the leads in the coronary sinus, right ventricle and right atrium. EKG^: EKG 1: My Interpretation: AV paced rhythm. Further interpretation is not possible. EKG 2: My Interpretation: 100% V paced rhythm. Flexographic Printing Press Operator Interpretation: 100% A&P Assessment and plan (1) Ventricular tachycardia: Patient apparently the ICD did not fire with the ventricular rate around 140 bpm. The VT therapy is set for a rate of 150 to 188 bpm. For further management of her condition, we may need to reprogram the device for a lower rate threshold. In the meanwhile I may go up on the amiodarone to 200 mg p.o. daily. I do not see any documentation as to why she cannot be on a higher dose of amiodarone. I might discuss this with Dr. Nelson. Status: Acute (2) S/P ICD (internal cardiac defibrillator) procedure: Patient's device seems to be working okay. The lead and battery function were found to be appropriate based on the [facility] express report. I contacted the [employer] bottling equipment sales representative to reprogram the device in the morning. Status: Acute (3) Ischemic cardiomyopathy: Patient is known to have severe LV systolic dysfunction with ejection fraction around 15%. We will continue optimizing her medications. Status: Acute (4) Anticoagulant long-term use: She appears to be over anticoagulated. May hold off on the oral ant icoagulant for tonight Status: Acute (5) Atrial flutter, paroxysmal: Currently patient is a paced rhythm. We will continue on the current medications. Anticoagulation management as mentioned above Status: Acute (6) Acute on chronic systolic heart failure: She will be carefully treated with IV diuretics. Based on the clinical progress, further recommendations will be made Status: Acute Additional A&P Information Her other problems are Chronic kidney disease. Elevated alkaline phosphatase. Currently over anticoagulated. Anemia of chronic illness. Based on the patient clinical progress, further recommendations will be made. Thank you for the opportunity to evaluate this patient make these recommendatio ns. Consult Attestations Medical Necessity Statement: Patient may require at least 2 midnight stay, for further evaluation management of her condition Coding Level of Care Code Acute Printing Roller Handler for Sushantg Fwd Diagnoses Ventricular tachycardia I47.2 S/P ICD (internal cardiac defibrillator) procedure Z95.810 Ischemic cardiomyopathy I25.5 Anticoagulant long-term use Z79.01 Atrial flutter, paroxysmal I48.92 Acute on chronic systolic heart failure I50.23 Time Spent (min) 65
[2020-02-24] MEDS: MEXILETINE 150 MG 150 EACH PO (20:47)
[2020-02-24] MEDS: morphine ER (12 HR) 15 mg Tablet PO (20:48)
[2020-02-24] MEDS: FUROsemide 40 mg Tablet PO (20:49)
[2020-02-24 20:51] LABS: Magnesium 2.8 mg/dL (1.7-2.3)
[2020-02-24] MEDS: ALPRAZolam 0.5 mg Tablet PO (20:52)
--- NOTE | 2020-02-24 21:20 | ECG_ITS ---
Measurements Intervals [place] Rate: 68 P: -53 IL: 138 QRS: -77 QRSD: 145 T: 81 QT: 432 QTc: 460 ELECTRONIC VENTRICULAR PACEMAKER ABNORMAL RHYTHM ECG Compared to ECG 01/28/2020 21:38:55 No significant changes Electronically Signed On 02-25-2020 8:38:35 CDT by Courtney Grace M.D. [id number]
[2020-02-24 21:46] LABS: Troponin 5 6HR 40.16 ng/mL (0-10); Troponin 5 6HR Delta 9.16 ng/L (0-12)
[2020-02-25] VITALS (13 sets, daily range): BP systolic 92–112; BP diastolic 49–75; PULSE 60–86; RESP 16–20; TEMP 35.7–37; O2SAT 94–99
[2020-02-25] MEDS: MEXILETINE 150 MG 150 EACH PO ×3 (05:12→20:13)
[2020-02-25 05:55] LABS: Basophils # 0.1 10^3/uL (0.0-0.1); Basophils % 1.5 %; Eosinophils # 0.1 10^3/uL (0.0-0.8); Eosinophils % 1.1 %; Hematocrit 34.7 % (37.0-47.0); Hemoglobin 9.9 g/dL (11.5-15.3); Lymphocytes # 0.6 10^3/uL (0.8-4.8); Mean Corpuscular HGB Conc 28.5 g/dL (30.0-36.0); Mean Corpuscular Hemoglobin 22.2 pg (28.0-34.0); Mean Corpuscular Volume 77.8 fL (81-99); Mean Platelet Volume 10.3 fL (7.4-10.4); Monocytes # 0.8 10^3/uL (0.2-0.9); Monocytes % 14.4 %; Neutrophils # 3.8 10^3/uL (1.8-7.7); Neutrophils % 71.8 %; Nucleated Red Blood Cells % 0 %; Platelet Count 246 10^3/cmm (130-400); Red Blood Count 4.46 10^6/uL (4.1-5.3); Red Cell Distribution Width 22.9 % (12.1-15.1); White Blood Count 5.3 10^3/uL (4.0-10.0)
[2020-02-25 06:17] LABS: INR 2.33 (0.8-1.2)
[2020-02-25 06:23] LABS: Anion Gap 16.8 (5-19); Blood Urea Nitrogen 19 mg/dL (8-23); Calcium 8.4 mg/dL (8.5-10.5); Carbon Dioxide 24 mmol/L (22-29); Chloride 102 mmol/L (98-107); Glomerular Filtration Rate 45.8 mL/min (90-130); Glucose 97 mg/dL (65-115); Magnesium 2.6 mg/dL (1.7-2.3); Osmolality Calculated 284 mOsm/kg (285-295); Potassium 3.8 mmol/L (3.5-5.1); Sodium 139 mmol/L (136-145)
[2020-02-25] MEDS: clopidogrel 75 mg Tablet PO (08:45)
[2020-02-25] MEDS: spironolactone 25 mg Tablet PO (08:45)
[2020-02-25] MEDS: metoprolol succinate ER (24 HR) 50 mg Tablet PO (08:45)
[2020-02-25] MEDS: pantoprazole DR 40 mg Tablet PO (08:46)
[2020-02-25] MEDS: amiodarone 200 mg Tablet PO (08:46)
[2020-02-25] MEDS: FUROsemide 40 mg Tablet PO (08:46)
[2020-02-25] MEDS: PARoxetine 20 mg Tablet PO (08:46)
[2020-02-25] MEDS: atorvastatin 40 mg Tablet 80 MG PO (08:47)
--- NOTE | 2020-02-25 09:10 | PM.PN ---
Subjective Subjective: Interval history: Patient has not had any recurrence of V. tach on the monitor, since the hospital admission. She denies any chest pain. She continues to have the dyspnea on exertion and a feeling of fatigue. ICD was interrogated today. She was found to have high fluid content in the chest based on the device telemetry. Her urine output is low. Medications: Reviewed: Yes Medication Review Details: Current Medications Acetaminophen (Tylenol) 650 mg PO Q6H PRN PRN Reason: Mild/Mod Pain Or Temp >/= 101 Albuterol Sulfate (Albuterol) 2.5 mg INHALATION Q4H PRN PRN Reason: Shortness Of Breath Last Admin: 02/25/20 04:39 Dose: 2.5 mg Documented by: Alprazolam (Xanax) 0.5 mg PO BID PRN PRN Reason: unknown Last Admin: 02/24/20 20:52 Dose: 0.5 mg Documented by: Amiodarone HCl (Cordarone) 200 mg PO DAILY [facility] Last Admin: 02/25/20 08:46 Dose: 200 mg Documented by: Atorvastatin Calcium (Lipitor) 80 mg PO DAILY [facility] Last Admin: 02/25/20 08:47 Dose: 80 mg Documented by: Clopidogrel Bisulfate (Plavix) 75 mg PO DAILY [facility] Last Admin: 02/25/20 08:45 Dose: 75 mg Documented by: Fluticasone Propionate (Flonase) 1 spray INTRANASAL BID PRN PRN Reason: unknown Furosemide (Lasix) 40 mg PO BID [facility] Last Admin: 02/25/20 08:46 Dose: 40 mg Documented by: Metoprolol Succinate (Toprol Xl) 50 mg PO DAILY [facility] Last Admin: 02/25/20 08:45 Dose: 50 mg Documented by: Morphine Sulfate (Ms Contin) 15 mg PO BEDTIME [facility] Last Admin: 02/24/20 20:48 Dose: 15 mg Documented by: Mupirocin (Bactroban) 1 applic NOSTRIL-B .COMPLEX [facility] Nitroglycerin (Nitrostat) 0.4 mg SUBLINGUAL Q5M PRN PRN Reason: Chest Pain Non-Formulary Medication (Mexiletine) 150 mg PO Q8H [facility] Last Admin: 02/25/20 05:12 Dose: 150 mg Documented by: Ondansetron HCl (Zofran) 4 mg PO Q8H PRN PRN Reason: NAUSEA Pantoprazole Sodium (Protonix) 40 mg PO DAILY [facility] Last Admin: 02/25/20 08:46 Dose: 40 mg Documented by: Paroxetine HCl (Paxil) 20 mg PO DAILY [facility] Last Admin: 02/25/20 08:46 Dose: 20 mg Documented by: Potassium Chloride (Klor-Con 10) 20 meq PO Q8H [facility] Last Admin: 02/25/20 04:07 Dose: 20 meq Documented by: Potassium Chloride (Klor-Con 10) 20 meq PO BID [facility] Last Admin: 02/25/20 08:46 Dose: 20 meq Documented by: Sacubitril/Valsartan (Entresto 24-26 Mg) 1 each PO BID [facility] Spironolactone (Aldactone) 25 mg PO DAILY [facility] Last Admin: 02/25/20 08:45 Dose: 25 mg Documented by: Tiotropium [place] (Spiriva) 18 mcg INHALATION DAILY [facility] Warfarin Sodium (Coumadin) 1 mg PO TuTh@1400 [facility] Warfarin Sodium (Coumadin) 2 mg PO SuMoWeFrSa@1400 [facility] Vitals/I&O/Wt Last Vital Signs Temp 97.7 F 02/25/20 07:47 Pulse 68 02/25/20 07:47 Resp 18 02/25/20 07:47 BP 101/49 02/25/20 07:47 Pulse Ox 94 02/25/20 07:47 02/24/20 02/25/20 02/25/20 22:59 06:59 14:59 Intake Total 250 / 250 240 / 240 Output Total 500 / 500 Balance 250 / 250 -500 / -250 240 / 240 Weight last 48 hrs Weight 137 lb 5 oz Weight 140 lb Physical Exam Narrative: EXAM NARRATIVE: GENERAL: The patient is alert and oriented times three. Not in any acute distress. Lethargic, ill looking HEENT: Minimal pallor, no icterus or lymphadenopathy. NECK: Trachea appears to be central. No masses noted. No JVD or thyromegaly appreciated. No carotid bruit. RESPIRATORY: Chest is symmetrical. No intercostals muscle retraction or any accessory muscle activation. There is no chest wall tenderness. Breath sounds are heard bilaterally. No rales or rhonchi heard. No evidence of any consolidation. BREASTS: Deferred. HEART: The heart sounds are somewhat muffled. Soft S3. Short systolic murmur in the mitral area. No diastolic murmurs. No pericardial rub. ABDOMEN: No vessel pulsations or distention. No tenderness. No organomegaly appreciated. No abdominal bruit. Bowel sounds are normally heard. Minimal abdominal wall edema : Deferred. RECTAL: Deferred. LYMPHATIC: No lymphadenopathy noted in the neck or groin. EXTREMITIES: 2-3+ edema both lower extremities. No cyanosis. Peripheral pulses are palpable but weak bilaterally MUSCULOSKELETAL: No acute joint deformities or swelling SKIN: There are no significant scars or skin rash noted. NEUROPSYCHIATRIC: The patient is alert and oriented x3. No focal motor deficits. Data : 02/26/20 04:59 02/26/20 04:59 A&P Assessment and plan (1) Ventricular tachycardia: The ICD was re-interrogated today. VT therapy was changed for a rate detection of 133 -180 Status: Acute (2) S/P ICD (internal cardiac defibrillator) procedure: Patient's device seems to be working okay. The lead and battery function were found to be appropriate based on the [facility] express report. The OptiVol fluid index was found to be markedly elevated. I may start the patient on IV Lasix of 60 mg every 12 hours and carefully monitor the urine output. Status: Acute (3) Ischemic cardiomyopathy: Patient is known to have severe LV systolic dysfunction with ejection fraction around 15%. We will continue optimizing her medications. Status: Acute (4) Anticoagulant long-term use: Patient was over anticoagulated yesterday. We may repeat the PT/INR today and the dose of the warfarin needs to be adjusted accordingly. Status: Acute (5) Atrial flutter, paroxysmal: Currently patient is a paced rhythm. We will continue on the current medications. Anticoagulation management as mentioned above Status: Acute (6) Acute on chronic systolic heart failure: She will be carefully treated with IV diuretics, as mentioned above. Based on the clinical progress, further recommendations will be made. I may start her on Lasix 60 mg IV every 12 hours. Discontinue the p.o. Lasix. Based on the response, further recommendations will be made Status: Acute Additional A&P Information Her other problems are Chronic kidney disease. Elevated alkaline phosphatase. Currently over anticoagulated. Anemia of chronic illness, the hemoglobin dropped from yesterday. She has no evidence of any external bleeding. May continue on the other symptomatic measures. Attestations Medical Necessity Statement*: Patient requires continued hospital stay for close monitoring and further management Coding Level of Care Code Acute Dust Puller for Chg Fwd Diagnoses Ventricular tachycardia I47.2 S/P ICD (internal cardiac defibrillator) procedure Z95.810 Ischemic cardiomyopathy I25.5 Anticoagulant long-term use Z79.01 Atrial flutter, paroxysmal I48.92 Acute on chronic systolic heart failure I50.23
--- NOTE | 2020-02-25 11:10 | PC.NURSE ---
in room interogatting her aicd/pacemaker
--- NOTE | 2020-02-25 11:27 | PC.CHAP ---
Pastoral Care Encounter/Spiritual Assessment Type of Contact [] Declined range feeder visit [] Patient/Family/Request visit [] Outpatient visit [] Follow-up visit [] Physician referral [] Code/Alert [X] Routine visit [] Staff referral [] Actively dying [] Patient sleeping [] Family support [] [] Out of room [] Palliative care [] [] Receiving care in room [] Pre-surgical visit [] Trauma [] Long length of stay [] ICU visit [] Other: Relational/Emotional Strength [] Patient feels connected with others/family/visitors/staff [] Distress [] Loneliness/isolation [] Abandonment Spirituality of Patient [X] Person of Josi [] Attends Orthodox of their Josi [] Believes in Prayer [] Reads Bible or Sikhism materials [] There are Spiritual issues to be addressed Telephone Order Clerk Interventions [X] Prayer [] Active listening [] Non-anxious presence [] Spiritual/emotional support [] Crisis/trauma care [] Spiritual counseling [] Bereavement support [] Provided bereavement packet [] Provided Bible/devotional materials [] Provided toy/stuffed animal, coloring book to patient or family member [] Provided Communion [] Anointing/[place] [] Salvation [] Completed spiritual assessment [] Other: Impact on Illness or Injury [] Angry [] Fearful [] Anxious [] Often cries [] Exhaustion [] Unable to work [] Unable to attend jewish [] Unable to walk/stand [] Unable to read [] Unable to drive [] Unable to eat/drink [] Unable to sleep [] Unable to be with family [] Patient intubated [] Other: Summary WANTS DAILY PATIENT ACCOUNT LIAISON VISITS Time spent with patient
[2020-02-25] MEDS: sacubitril/valsartan 24-26 mg Tablet 1 EACH PO ×2 (11:37→18:14)
[2020-02-25] MEDS: FUROsemide 10 mg/mL SDV 10mL 60 MG IVP (12:57)
[2020-02-25] MEDS: warfarin 2 mg Tablet PO (15:24)
--- NOTE | 2020-02-25 15:45 | P.MISC_ITS ---
Miscellaneous Note Purpose of Documentation: ICD interrogation and reprogramming Note: Patient was admitted to hospital with syncope. She has a SPRAY CEMENTER-D device. She was found to have episodes of ventricular tachycardia. The device was programmed for ventricular tachycardia detection with a heart rate in the 150- 188 range So the device interrogation was done today. It was reprogrammed for a VT detection of heart rate 133 to 188 bpm. The ICD, pacemaker and the lead functions were found to be appropriate.
--- NOTE | 2020-02-25 16:49 | PM.PN ---
Subjective Subjective: Interval history: She states she is doing okay. Denies any pain. No chest discomfort. Breathing is comfortable. No additional syncopal episode. Vitals/I&O/Wt Last Vital Signs Temp 97.6 F 02/25/20 16:00 Pulse 82 02/25/20 16:00 Resp 18 02/25/20 16:00 BP 94/56 02/25/20 16:00 Pulse Ox 97 02/25/20 16:00 02/25/20 02/25/20 02/25/20 06:59 14:59 22:59 Intake Total 580 / 580 Output Total 500 / 500 Balance -500 / -250 580 / 580 Weight last 48 hrs Weight 62.284 kg Weight 63.503 kg Physical Exam Const: COMMON NORMALS: oriented x3 GENERAL APPEARANCE: frail appearing OTHER: Generally weak, pale. HENMT: COMMON NORMALS: oropharynx normal Neck/C-Spine: COMMON NORMALS: no JVD Resp: COMMON NORMALS: normal respiratory effort and clear to auscultation bilaterally AUSCULTATION: clear to auscultation bilaterally Cardio: COMMON NORMALS: no JVD, regular rhythm, S1 normal heart sound and S2 normal heart sound RHYTHM: regular rhythm HEART SOUNDS: S1 normal, S2 normal and murmur systolic GI: COMMON NORMALS: normal to inspection, nondistended, normoactive bowel sounds, soft to palpation and non-tender PALPATION: Yes soft Extremity: COMMON NORMALS: no joint enlargement GENERAL: Yes edema (2+) and Yes pallor Neuro: COMMON NORMALS: oriented x3 and moves all extremities Skin: COMMON NORMALS: no rashes or lesions noted GENERAL SKIN EXAM: no rashes or lesions noted and ecchymosis Data : 02/25/20 04:55 02/25/20 04:55 A&P Assessment and plan (1) Congestive heart failure with cardiomyopathy: Additional diuresis with IV Lasix tonight. Blood pressure has been soft, monitor, but per discussion with cardiology as long as systolic staying over 90, continue current dose of Lasix. With peripheral edema, orthopnea. She appears to have some fluid overload, although the same time says has been having more difficult time with producing urine even with increased dose of Lasix since October. Status: Acute (2) Ventricular tachycardia: Amiodarone dose increased to 200 mg. AICD reprogrammed by [employer] to be triggered by lower heart rate in the range of 133-188. Continue follow-up with cardiology in office for further optimization and discussion of goals of care. Underwent manual electric cardioversion in the ER. Subsequently blood pressures have been soft. VT confirmed on interrogation of device. No chest pain. Status: Acute (3) Syncope, cardiogenic: As above. Status: Acute (4) Acute kidney injury: Suspect secondary to reduced cardiac output with prerenal failure during V. tach. With improvement currently down to creatinine 1.2. Status: Acute Additional A&P Information Supratherapeutic INR: Resolved. Current INR 2.33. Will resume usual dosing. 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
[2020-02-25] MEDS: morphine ER (12 HR) 15 mg Tablet PO (20:13)
[2020-02-25] MEDS: ALPRAZolam 0.5 mg Tablet PO (20:13)
[2020-02-26] VITALS (7 sets, daily range): BP systolic 92–110; BP diastolic 47–66; PULSE 64–69; RESP 15–20; TEMP 36.4–36.7; O2SAT 97–99
[2020-02-26] MEDS: FUROsemide 10 mg/mL SDV 10mL 60 MG IVP (00:43)
[2020-02-26 05:41] LABS: Basophils # 0.1 10^3/uL (0.0-0.1); Basophils % 1.1 %; Eosinophils # 0.1 10^3/uL (0.0-0.8); Eosinophils % 0.9 %; Hematocrit 34.6 % (37.0-47.0); Hemoglobin 9.8 g/dL (11.5-15.3); Lymphocytes # 0.5 10^3/uL (0.8-4.8); Lymphocytes % 6.6 %; Mean Corpuscular HGB Conc 28.3 g/dL (30.0-36.0); Mean Corpuscular Hemoglobin 22.5 pg (28.0-34.0); Mean Corpuscular Volume 79.5 fL (81-99); Mean Platelet Volume 10.2 fL (7.4-10.4); Monocytes # 0.9 10^3/uL (0.2-0.9); Monocytes % 12.3 %; Neutrophils # 5.8 10^3/uL (1.8-7.7); Neutrophils % 78.8 %; Nucleated Red Blood Cells % 0 %; Platelet Count 237 10^3/cmm (130-400); Red Blood Count 4.35 10^6/uL (4.1-5.3); Red Cell Distribution Width 23.2 % (12.1-15.1); White Blood Count 7.4 10^3/uL (4.0-10.0)
[2020-02-26 05:58] LABS: Magnesium 2.7 mg/dL (1.7-2.3)
[2020-02-26 05:59] LABS: Alanine Aminotransferase 9 U/L (0-33); Albumin Level 3.8 g/dL (3.5-5.2); Alkaline Phosphatase 137 IU/L (35-105); Anion Gap 12.8 (5-19); Aspartate Amino Transferase 21 U/L (0-32); Blood Urea Nitrogen 20 mg/dL (8-23); Calcium 8.4 mg/dL (8.5-10.5); Carbon Dioxide 29 mmol/L (22-29); Chloride 101 mmol/L (98-107); Globulin 2.9 g/dL (1.3-4.6); Glomerular Filtration Rate 35.4 mL/min (90-130); Glucose 97 mg/dL (65-115); Osmolality Calculated 284 mOsm/kg (285-295); Potassium 3.8 mmol/L (3.5-5.1); Sodium 139 mmol/L (136-145); Total Protein 6.7 g/dL (6.6-8.7)
[2020-02-26] MEDS: MEXILETINE 150 MG 150 EACH PO ×2 (06:03→15:11)
[2020-02-26] MEDS: amiodarone 200 mg Tablet PO (09:17)
[2020-02-26] MEDS: atorvastatin 40 mg Tablet 80 MG PO (09:17)
[2020-02-26] MEDS: metoprolol succinate ER (24 HR) 50 mg Tablet PO (09:18)
[2020-02-26] MEDS: PARoxetine 20 mg Tablet PO (09:18)
[2020-02-26] MEDS: clopidogrel 75 mg Tablet PO (09:18)
[2020-02-26] MEDS: spironolactone 25 mg Tablet PO (09:18)
[2020-02-26] MEDS: pantoprazole DR 40 mg Tablet PO (09:18)
[2020-02-26] MEDS: sacubitril/valsartan 24-26 mg Tablet 1 EACH PO (09:19)
[2020-02-26] MEDS: TORSEmide 20 mg Tablet 40 MG PO (11:55)
--- NOTE | 2020-02-26 13:48 | PM.PN ---
Subjective Subjective: Interval history: Patient is feeling much better since yesterday. She responded to the IV Lasix appropriately. Her urine output is very satisfactory. She is able to get up and move around. Denies any chest pain. Her baseline shortness of breath is somewhat better. No new complaints. No new arrhythmias on the monitor. Medications: Reviewed: Yes Medication Review Details: Current Medications Acetaminophen (Tylenol) 650 mg PO Q6H PRN PRN Reason: Mild/Mod Pain Or Temp >/= 101 Albuterol Sulfate (Albuterol) 2.5 mg INHALATION Q4H PRN PRN Reason: Shortness Of Breath Last Admin: 02/26/20 09:43 Dose: 2.5 mg Documented by: Alprazolam (Xanax) 0.5 mg PO BID PRN PRN Reason: unknown Last Admin: 02/25/20 20:13 Dose: 0.5 mg Documented by: Amiodarone HCl (Cordarone) 200 mg PO DAILY [facility] Last Admin: 02/26/20 09:17 Dose: 200 mg Documented by: Atorvastatin Calcium (Lipitor) 80 mg PO DAILY [facility] Last Admin: 02/26/20 09:17 Dose: 80 mg Documented by: Clopidogrel Bisulfate (Plavix) 75 mg PO DAILY [facility] Last Admin: 02/26/20 09:18 Dose: 75 mg Documented by: Fluticasone Propionate (Flonase) 1 spray INTRANASAL BID PRN PRN Reason: unknown Metoprolol Succinate (Toprol Xl) 50 mg PO DAILY [facility] Last Admin: 02/26/20 09:18 Dose: 50 mg Documented by: Morphine Sulfate (Ms Contin) 15 mg PO BEDTIME [facility] Last Admin: 02/25/20 20:13 Dose: 15 mg Documented by: Mupirocin (Bactroban) 1 applic NOSTRIL-B .COMPLEX [facility] Nitroglycerin (Nitrostat) 0.4 mg SUBLINGUAL Q5M PRN PRN Reason: Chest Pain Non-Formulary Medication (Mexiletine) 150 mg PO Q8H [facility] Last Admin: 02/26/20 06:03 Dose: 150 mg Documented by: Sacubitril/Valsartan (24-26 Mg Tablet) 1 each PO BID [facility] Last Admin: 02/26/20 09:19 Dose: 1 each Documented by: Ondansetron HCl (Zofran) 4 mg PO Q8H PRN PRN Reason: NAUSEA Pantoprazole Sodium (Protonix) 40 mg PO DAILY [facility] Last Admin: 02/26/20 09:18 Dose: 40 mg Documented by: Paroxetine HCl (Paxil) 20 mg PO DAILY [facility] Last Admin: 02/26/20 09:18 Dose: 20 mg Documented by: Potassium Chloride (Klor-Con 10) 20 meq PO TID [facility] Last Admin: 02/26/20 09:19 Dose: 20 meq Documented by: Spironolactone (Aldactone) 25 mg PO DAILY [facility] Last Admin: 02/26/20 09:18 Dose: 25 mg Documented by: Tiotropium [place] (Spiriva) 18 mcg INHALATION DAILY [facility] Last Admin: 02/26/20 09:45 Dose: 1 puff Documented by: Torsemide (Demadex) 40 mg PO BID [facility] Last Admin: 02/26/20 11:55 Dose: 40 mg Documented by: Warfarin Sodium (Coumadin) 1 mg PO TuTh@1400 [facility] Warfarin Sodium (Coumadin) 2 mg PO SuMoWeFrSa@1400 [facility] Last Admin: 02/25/20 15:24 Dose: 2 mg Documented by: Vitals/I&O/Wt Last Vital Signs Temp 97.6 F 02/26/20 12:00 Pulse 66 02/26/20 12:00 Resp 20 H 02/26/20 12:00 BP 92/53 02/26/20 12:00 Pulse Ox 97 02/26/20 12:00 02/25/20 02/26/20 02/26/20 22:59 06:59 14:59 Intake Total 480 / 1060 120 / 1180 240 / 240 Output Total 1999 1850 / 3850 1350 / 1350 Balance -1520 / -940 -1730 / -2670 -1110 / -1110 Weight last 48 hrs Weight 136 lb 4 oz Weight 137 lb 5 oz Weight 140 lb Physical Exam Narrative: EXAM NARRATIVE: GENERAL: The patient is alert and oriented times three. Not in any acute distress. Lethargic, ill looking HEENT: Minimal pallor, no icterus or lymphadenopathy. NECK: Trachea appears to be central. No masses noted. No JVD or thyromegaly appreciated. No carotid bruit. RESPIRATORY: Chest is symmetrical. No intercostals muscle retraction or any accessory muscle activation. There is no chest wall tenderness. Breath sounds are heard bilaterally. No rales or rhonchi heard. No evidence of any consolidation. BREASTS: Deferred. HEART: The heart sounds are somewhat muffled. Soft S3. Short systolic murmur in the mitral area. No diastolic murmurs. No pericardial rub. ABDOMEN: No vessel pulsations or distention. No tenderness. No organomegaly appreciated. No abdominal bruit. Bowel sounds are normally heard. Minimal abdominal wall edema : Deferred. RECTAL: Deferred. LYMPHATIC: No lymphadenopathy noted in the neck or groin. EXTREMITIES: 2+ edema both lower extremities. No cyanosis. Peripheral pulses are palpable but weak bilaterally MUSCULOSKELETAL: No acute joint deformities or swelling SKIN: There are no significant scars or skin rash noted. NEUROPSYCHIATRIC: The patient is alert and oriented x3. No focal motor deficits. Data : 02/26/20 04:59 02/26/20 04:59 Other Labs: Abnormal lab results 02/26/20 02/26/20 02/26/20 Range/Units 04:59 04:59 04:59 Hgb 9.8 L (11.5-15.3) g/dL Hct 34.6 L (37.0-47.0) % MCV 79.5 L (81-99) fL MCH 22.5 L (28.0-34.0) pg MCHC 28.3 L (30.0-36.0) g/dL RDW 23.2 H (12.1-15.1) % Lymph # (Auto) 0.5 L (0.8-4.8) 10^3/uL PT (10.5-13.3) SECONDS INR (0.8-1.2) Creatinine 1.5 H (0.5-0.9) mg/dL GFR Calculation 35.4 L (90-130) mL/min Calculated Osmolality 284 L (285-295) mOsm/kg Calcium 8.4 L (8.5-10.5) mg/dL Magnesium 2.7 H (1.7-2.3) mg/dL Total Bilirubin 2.0 H (0.15-1.2) mg/dL Alkaline Phosphatase 137 H (35-105) IU/L 02/26/20 Range/Units 04:59 Hgb (11.5-15.3) g/dL Hct (37.0-47.0) % MCV (81-99) fL MCH (28.0-34.0) pg MCHC (30.0-36.0) g/dL RDW (12.1-15.1) % Lymph # (Auto) (0.8-4.8) 10^3/uL PT 24.30 H (10.5-13.3) SECONDS INR 2.10 H (0.8-1.2) Creatinine (0.5-0.9) mg/dL GFR Calculation (90-130) mL/min Calculated Osmolality (285-295) mOsm/kg Calcium (8.5-10.5) mg/dL Magnesium (1.7-2.3) mg/dL Total Bilirubin (0.15-1.2) mg/dL Alkaline Phosphatase (35-105) IU/L A&P Assessment and plan (1) Ventricular tachycardia: Patient apparently has not had any recurrence of ventricular tachycardia, since the hospital admission. She is tolerating the medication so far well. May continue on the current medications and device settings. Status: Acute (2) S/P ICD (internal cardiac defibrillator) procedure: Patient's device seems to be working okay. The lead and battery function were found to be appropriate based on the [facility] report. The OptiVol fluid index was found to be markedly elevated. I may start the patient on IV Lasix of 60 mg every 12 hours and carefully monitor the urine output. Status: Acute (3) Acute on chronic systolic heart failure: Patient may be started on Demadex 40 mg p.o. twice daily. The Lasix may be discontinued. May continue with her current medications. Status: Acute (4) Ischemic cardiomyopathy: Patient is known to have severe LV systolic dysfunction with ejection fraction around 15%. We will continue optimizing her medications. Status: Acute (5) Anticoagulant long-term use: Her INR is therapeutic. May continue on the Coumadin. Status: Acute (6) Atrial flutter, paroxysmal: Currently patient is a paced rhythm. We will continue on the current medications. Anticoagulation management as mentioned above Status: Acute Additional A&P Information Her other problems are Chronic kidney disease. Elevated alkaline phosphatase. Currently over anticoagulated. Anemia of chronic illness, the hemoglobin seems stable May continue on the other symptomatic measures. Attestations Medical Necessity Statement*: If the patient continues to remain stable, may be discharged home today. Discussed with Dr. Luna. May continue on the current dose of amiodarone. She need to be seen at the heart care services next week by the nurse practitioner. And also may make an appointment to see Dr. Nelson in 3 weeks. 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
--- NOTE | 2020-02-26 14:10 | PM.DCS ---
Discharge Providers Date of Admission: 02/25/20 11:55 Date of Discharge: February 26, 2020 Attending Provider at Admission: Bill Sweeney Attending Provider at Discharge: Bill Sweeney Primary Care Provider: Tan Acosta Jr, MD Diagnoses at Discharge Discharge Diagnosis (1) Ventricular tachycardia: Status: Acute (2) S/P ICD (internal cardiac defibrillator) procedure: Status: Acute (3) Ischemic cardiomyopathy: Status: Acute (4) Anticoagulant long-term use: Status: Acute (5) Atrial flutter, paroxysmal: Status: Acute (6) Acute on chronic systolic heart failure: Status: Acute Reason for Visit Reason for Visit: Reason For Visit: SYNCOPAL EPISODE / CYANOTIC Hospital Course Hospital Course: Pleasant 59 yo lady with advanced cardiomyopathy, systolic CHF, s/p AICD with recurrent syncope previously, experienced another syncopal episode the morning of admission, and in ER found to have VTach in 140s, whereas AICD detection was set up to 155-188, so the device did not fire. She was also noted to be in fluid overload, acute on chronic systolic CHF exacerbation. She was admitted for additional evaluation and treatment, and on assessment by cardiology amiodarone dose was increased to 200 mg. She was seen by [employer] commercial representative and AICD device was reprogrammed for detection 133-188 range. Congestive heart failure exacerbation was initially treated with IV Lasix, however, was switched to torsemide by cardiology, with good response, and on discharge diuretic will be changed to torsemide at this time. Fluid restriction for now is not established due to change in diuretic, and will need to be considered on reevaluation in cardiology office. Please continue to readdress goals of care given severe and possibly end-stage congestive heart failure. Physical Exam Const: COMMON NORMALS: oriented x3 GENERAL APPEARANCE: frail appearing OTHER: Generally weak, pale. Appears stronger, more energetic today. HENMT: COMMON NORMALS: oropharynx normal Neck/C-Spine: COMMON NORMALS: no JVD Resp: COMMON NORMALS: normal respiratory effort and clear to auscultation bilaterally AUSCULTATION: clear to auscultation bilaterally Cardio: COMMON NORMALS: no JVD, regular rhythm, S1 normal heart sound and S2 normal heart sound RHYTHM: regular rhythm HEART SOUNDS: S1 normal, S2 normal and murmur systolic GI: COMMON NORMALS: normal to inspection, nondistended, normoactive bowel sounds, soft to palpation and non-tender PALPATION: Yes soft Extremity: COMMON NORMALS: no joint enlargement GENERAL: Yes edema (1+) and Yes pallor Neuro: COMMON NORMALS: oriented x3 and moves all extremities Skin: COMMON NORMALS: no rashes or lesions noted GENERAL SKIN EXAM: no rashes or lesions noted and ecchymosis Discharge Data Data Completed and Pending: Completed Studies During Hospitalization Category Date Time Status XR chest 1V milla ble [id number] Urgent Exams 02/24/20 15:19 Completed Pending at discharge Category Date Time Status Complete Blood Co unt w/Auto AM LABS Lab 02/27/20 04:00 Ordered Complete Blood Co unt w/Auto AM LABS Lab 02/28/20 04:00 Ordered Comprehensive Met abolic Panel AM LA BS Lab 02/27/20 04:00 Ordered Comprehensive Met abolic Panel AM LA BS Lab 02/28/20 04:00 Ordered Magnesium AM LABS Lab 02/27/20 04:00 Ordered Labs from last 24 hours 02/26/20 02/26/20 02/26/20 04:59 04:59 04:59 WBC RBC Hgb Hct MCV MCH MCHC RDW Plt Count MPV Neut % (Auto) Lymph % (Auto) Leon % (Auto) Eos % (Auto) Baso % (Auto) Neut # (Auto) Lymph # (Auto) Leon # (Auto) Eos # (Auto) Baso # (Auto) Nucleated RBC % (a uto) Nucleated RBCs # PT 24.30 H INR 2.10 H Sodium 139 Potassium 3.8 Chloride 101 Carbon Dioxide 29 Anion Gap 12.8 BUN 20 Creatinine 1.5 H GFR Calculation 35.4 L Glucose 97 Calculated Osmolal ity 284 L Calcium 8.4 L Magnesium 2.7 H Total Bilirubin 2.0 H AST 21 ALT 9 Alkaline Phosphata se 137 H Total Protein 6.7 Albumin 3.8 Globulin 2.9 02/26/20 04:59 WBC 7.4 RBC 4.35 Hgb 9.8 L Hct 34.6 L MCV 79.5 L MCH 22.5 L MCHC 28.3 L RDW 23.2 H Plt Count 237 MPV 10.2 Neut % (Auto) 78.8 Lymph % (Auto) 6.6 Leon % (Auto) 12.3 Eos % (Auto) 0.9 Baso % (Auto) 1.1 Neut # (Auto) 5.8 Lymph # (Auto) 0.5 L Leon # (Auto) 0.9 Eos # (Auto) 0.1 Baso # (Auto) 0.1 Nucleated RBC % (a uto) 0 Nucleated RBCs # 0.0 PT INR Sodium Potassium Chloride Carbon Dioxide Anion Gap BUN Creatinine GFR Calculation Glucose Calculated Osmolal ity Calcium Magnesium Total Bilirubin AST ALT Alkaline Phosphata se Total Protein Albumin Globulin Vitals: Last Vital Signs Temp 97.6 F 02/26/20 12:00 Pulse 66 02/26/20 12:00 Resp 20 H 02/26/20 12:00 BP 92/53 02/26/20 12:00 Pulse Ox 97 02/26/20 12:00 Discharge Plan Discharge Patient Disposition: Home, Self-Care Condition: Stable Prescriptions: New torsemide 20 mg Tablet 40 mg PO BID Qty: 60 RF: 0 Continued Spiriva with HandiHaler 18 mcg capsule, w/inhalation device 1 cap INHALATION DAILY RF: 0 pantoprazole 40 mg tablet,delayed release (DR/EC) 40 mg PO DAILY RF: 0 clopidogrel 75 mg tablet 75 mg PO DAILY RF: 0 albuterol sulfate 2.5 mg /3 mL (0.083 %) solution for nebulization 2.5 mg INHALATION Q4H PRN (Reason: Shortness Of Breath) RF: 0 mexiletine 150 mg capsule 150 mg PO Q8H RF: 0 Entresto 24-26 mg tablet 1 tab PO BID RF: 0 alprazolam 0.5 mg tablet 0.5 mg PO BID PRN (Reason: unknown) RF: 0 spironolactone 25 mg tablet 25 mg PO DAILY RF: 0 potassium chloride 10 mEq capsule, extended release 20 meq PO BID RF: 0 paroxetine HCl 20 mg tablet 20 mg PO DAILY RF: 0 rosuvastatin [Crestor] 40 mg tablet 40 mg PO DAILY RF: 0 metoprolol succinate 25 mg tablet extended release 24 hr 50 mg PO DAILY RF: 0 fluticasone propionate [Allergy Relief (fluticasone)] 50 mcg/actuation spray,suspension 1 spray INTRANASAL BID PRN (Reason: unknown) RF: 0 nitroglycerin [Nitrostat] 0.4 mg tablet, sublingual 0.4 mg SUBLINGUAL Q5M PRN (Reason: Chest Pain) RF: 0 warfarin 1 mg tablet See Rx Instructions .ROUTE .COMPLEX RF: 0 nystatin 100,000 unit/mL suspension 5 ml PO QID RF: 0 morphine 15 mg tablet extended release 15 mg PO BEDTIME RF: 0 mupirocin 2 % ointment See Rx Instructions .ROUTE .COMPLEX RF: 0 Narcan 4 mg/actuation spray,non-aerosol See Rx Instructions .ROUTE .COMPLEX RF: 0 Changed amiodarone 100 mg tablet 200 mg PO DAILY Qty: 60 RF: 0 Discontinued furosemide 40 mg tablet 40 mg PO BID RF: 0 Discharge Orders: Discharge Order (Routine); Ordered 02/26/20 Ordered By: Bill Sweeney Referrals: Lisa Acevedo FNP [Nurse Practitioner] - 1 week (Please call Thursday to set up a follow up appointment with Lisa Acevedo.) Tan Acosta Jr, MD [Primary Care Provider] - 4-7 days (Please call Thursday to set up a follow up appointment with Dr. Acosta) Discharge Diet: Cardiac Discharge Activity: Increase activity as tolerated and Oxygen as instructed Patient Instructions: Torsemide (By mouth), Heart Failure (DC), CHF Stoplight Activity Restrictions/Additional Instructions: Continue oxygen at home as previously. Continue to monitor and log your blood pressure, heart rate, as well as your weight. For now no fluid restriction is placed as your diuretic is changed to a different medication. Please discuss fluid restriction with cardiology nurse practitioner during the appointment. 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
[2020-02-26] MEDS: warfarin 2 mg Tablet PO (15:10)
== END 2020-02-26 15:44 | disposition home or self-care (01) | DRG 308 ==
LOC: ER 15:27 → MEDSURG 18:46
PROVIDERS: Internal Medicine Cardiovascular Disease; Admitting Provider Internal Medicine; Emergency Provider Family Medicine; PCP Family Medicine; Visit Provider Internal Medicine
DX: I47.2 Ventricular tachycardia (principal); I50.23 Acute on chronic systolic (congestive) heart failure; N17.9 Acute kidney failure, unspecified; T82.897A Other specified complication of cardiac prosthetic devices, implants and grafts, initial encounter; I25.10 Atherosclerotic heart disease of native coronary artery without angina pectoris; Z95.5 Presence of coronary angioplasty implant and graft; Z95.0 Presence of cardiac pacemaker; N18.9 Chronic kidney disease, unspecified; K59.00 Constipation, unspecified; Z99.81 Dependence on supplemental oxygen; Z79.01 Long term (current) use of anticoagulants; I48.91 Unspecified atrial fibrillation; E78.5 Hyperlipidemia, unspecified; I25.2 Old myocardial infarction; Z95.810 Presence of automatic (implantable) cardiac defibrillator; Z87.891 Personal history of nicotine dependence; I25.5 Ischemic cardiomyopathy; J44.9 Chronic obstructive pulmonary disease, unspecified; F32.9 Major depressive disorder, single episode, unspecified; K21.9 Gastro-esophageal reflux disease without esophagitis; G89.29 Other chronic pain; Z79.891 Long term (current) use of opiate analgesic; D63.1 Anemia in chronic kidney disease; Y71.2 Prosthetic and other implants, materials and accessory cardiovascular devices associated with adverse incidents
CPT/HCPCS: 12345; 36415; 71045; 80048; 80053; 81001; 83735; 83880; 84484; 85025; 85610; 93005; 94640; 94664; 96375; 99283; G0378; J1940; J7030; J7611

== ENCOUNTER 2020-03-20 12:43 | Outpatient (CLI) | payer MEDICARE, SELFPAY ==
--- NOTE | 2020-03-20 12:57 | XR_ITS ---
WS: [id number] RIGHT HUMERUS: 2 VIEW(S) TECHNIQUE: AP and lateral. HISTORY: STIFFNESS OF UNSPECIFIED SHOULDER, PAIN IN RIGHT SHOULDER, pain described near the shoulder not the elbow. COMPARISON: None available. No acute fracture or dislocation. No joint or soft tissue abnormality. No foreign bodies and visualized upper thorax is unremarkable. XR/[place] [id number] IMPRESSION: Negative RIGHT humerus or fracture.
--- NOTE | 2020-03-20 12:57 | XR_ITS ---
WS: [id number] RIGHT SHOULDER: 3 VIEW(S) TECHNIQUE: Internal and external rotation with Y view. HISTORY: STIFFNESS OF UNSPECIFIED SHOULDER, PAIN IN RIGHT SHOULDER COMPARISON: None available. No fracture or dislocation or soft tissue abnormality. Glenohumeral and AC joints are unremarkable. XR/XR shoulder RT min 2V* [id number] IMPRESSION: Normal RIGHT shoulder.
== END 2020-03-20 12:44 | disposition home or self-care (01) ==
LOC: RADWPI 12:47
PROVIDERS: Family Provider Family Medicine; PCP Family Medicine; Visit Provider Nurse Practitioner Family
DX: M25.511 Pain in right shoulder (principal); M25.611 Stiffness of right shoulder, not elsewhere classified
CPT/HCPCS: 73030; 73060

== ENCOUNTER 2020-06-12 00:36 | Observation (INO) | payer MEDICARE, SELFPAY ==
[2020-06-12] VITALS (13 sets, daily range): BP systolic 94–116; BP diastolic 49–73; PULSE 60–94; RESP 16–22; TEMP 35.6–36.7; O2SAT 95–99; BMI 24.5
--- NOTE | 2020-06-12 01:20 | XRR_ITS ---
PROCEDURE INFORMATION: Exam: XR Chest, 1 View Exam date and time: 06/12/2020 1:58 AM Age: 59 years old Clinical indication: Shortness of breath; Prior surgery; Surgery type: Cabg, stents, pacer/defib; Additional info: Chf TECHNIQUE: Imaging protocol: XR of the chest Views: 1 view. COMPARISON: CR XR chest 1V portable [id number] 02/24/2020 3:26 PM FINDINGS: Lungs: Mild interstitial prominence. No overt edema. No focal infiltrate. Pleural space: Unremarkable. No pleural effusion. No pneumothorax. Heart/Mediastinum: cardiac silhouette is enlarged. Prior sternotomy. Vasculature: Pacemaker is present via a left subclavian approach. Bones/joints: See Heart/Mediastinum finding. XR/XR chest 1V portable [id number] IMPRESSION: Mild interstitial prominence. No overt edema. No focal infiltrate.
--- NOTE | 2020-06-12 01:21 | ECG_ITS ---
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 Measurements Intervals [place] Rate: 62 P: 18 MS: 162 QRS: 270 QRSD: 196 T: 97 QT: 529 QTc: 539 Interpretive Statements ELECTRONIC ATRIAL PACEMAKER ELECTRONIC VENTRICULAR PACEMAKER ABNORMAL RHYTHM ECG Compared to ECG 02/24/2020 19:27:06 No significant changes Electronically Signed On 06-12-2020 17:26:06 CDT by Niyah Davenport M.D. [id number]
--- NOTE | 2020-06-12 01:31 | W.ED.GENADLT ---
HPI - General Adult General: Chief complaint: General Medical Stated complaint: leg pain/ dehydrated Time Seen by Provider: 06/12/20 01:19 History of Present Illness: HPI narrative: Patient is a 59-year-old female comes to the ED with bilateral leg cramps, dehydrated and burning when urinating. Patient is a past medical history of ischemic cardiomyopathy, dyslipidemia, arteriosclerotic heart disease, congestive heart failure with pacemaker. Patient has had a CABG and an internal cardiac defibrillator placed. Patient says that approximately 2 days ago she started having symptoms of burning sensation when she urinates. Patient has been on a fluid restricted diet due to her heart failure and has only been eating ice chips for the past couple days. Patient says she feels dehydrated. The muscle cramps in both right and left leg started yesterday. Muscle cramps are episodic. Patient denies any chest pain, heart palpitations, nausea/vomiting, abdominal pain, fever, chills, bowel symptoms or hematuria. Associated symptoms: Deny chest pain, dyspnea, headache(s), nausea, rash, palpitations or vomiting Review of Systems Const: Denies: fever(s), chills or fatigue Eyes: Denies: change in vision or eye discomfort ENMT: Denies: throat pain, odynophagia, nasal discharge or nasal congestion Card: Denies: chest pain, palpitations, edema, swelling of feet/ankles, dyspnea on exertion or orthopnea Resp: Denies: dyspnea, productive cough or non-productive cough GI: Denies: abdominal pain, nausea, vomiting, diarrhea, constipation or hematochezia : Reports: dysuria and urinary frequency (Decreased); Denies: flank pain or hematuria Musc: Reports: muscle cramps (Right and left lower extremities.); Denies: neck pain, back pain or extremity swelling Skin/Breast: Denies: rash or new lesions Neuro: Denies: headache(s), numbness in extremities or weakness in extremities PFSH ED PFSH: Medical History Acute on chronic systolic heart failure Anticoagulant long-term use ASHD (arteriosclerotic heart disease) Atherosclerotic heart disease of [place] coronary artery without angina pectoris Atrial fibrillation Congestive heart failure with cardiomyopathy Dyslipidemia Ischemic cardiomyopathy LV (left ventricular) mural thrombus Myocardial infarction Periodontal disease Ventricular tachycardia Surgical History S/P angioplasty with stent S/P CABG (coronary artery bypass graft) S/P ICD (internal cardiac defibrillator) procedure Status post tubal ligation Family History Father CAD (coronary artery disease) Myocardial infarction Mother CAD (coronary artery disease) Myocardial infarction Sister CAD (coronary artery disease) Myocardial infarction Social History Smoking and tobacco status: former smoker Alcohol intake: current Alcohol intake frequency: holidays/special occasions only Marital status: Life Partner Current gender identity: Female Josi/Yarsanism: Episcopal Physical Exam Const: COMMON NORMALS: no acute distress, patient oriented x3 and alert GENERAL APPEARANCE: cooperative, comfortable and ill appearing (Patient's face had a grayish tint to it and her lips were purple.) HENMT: COMMON NORMALS: normocephalic HEAD & SCALP: normocephalic MOUTH: moist mucous membranes abnormal Details: parched and lip abnormal (Patient's lips appear purple and dry.) THROAT: posterior oropharynx normal and uvula midline Eye: COMMON NORMALS: Equal, round and reactive pupils present CONJUNCTIVA: Yes conjunctival abnormal positive bilateral conjunctival icterus (Mild) PUPIL: Yes Equal, round and reactive pupils present Neck/C-Spine: COMMON NORMALS: supple GENERAL: Yes normal visual inspection Resp: COMMON NORMALS: normal respiratory effort, No retractions, No use of accessory muscles and clear to auscultation bilaterally AUSCULTATION: clear to auscultation bilaterally Cardio: COMMON NORMALS: regular rate, regular rhythm, S1 normal heart sound present, S2 normal heart sound present, No gallops present (Cardio), No clicks present (Cardio) and Peripheral pulses 2+ throughout RATE: regular rate RHYTHM: regular rhythm HEART SOUNDS: S1 normal heart sound present, S2 normal heart sound present and Murmur heart sound present systolic Location: apex Intensity: III/ Characteristics: blowing Timing: early PERIPHERAL PULSES: Peripheral pulses 2+ throughout GI: COMMON NORMALS: Normal to inspection, nondistended, normoactive bowel sounds present, Soft to palpation, non-tender and no masses PALPATION: Yes Soft to palpation : COMMON NORMALS: Yes no CVA tenderness BLADDER/KIDNEY EXAM: Yes no CVA tenderness Back/Pelvis: COMMON NORMALS: no CVA tenderness Extremity: COMMON NORMALS: normal to inspection and no pedal edema NARRATIVE EXTREMITY EXAM: Patient has varicose veins of lower extremities bilaterally. No pedal edema seen. Patient does have some very mild 1+ nonpitting edema above the knee on the lower extremities bilaterally. GENERAL: Yes edema Neuro: COMMON NORMALS: patient oriented x3 and moves all extremities SENSORIUM/ORIENTATION: Yes alert Skin: COMMON NORMALS: no rashes or lesions noted GENERAL SKIN EXAM: no rashes or lesions noted and dry skin Course Consultations: Consultation #1: I spoke with Dr. Villar and told him about patient's case. I discussed with findings of patient being very dry and dehydrated and her creatinine of 2.1. I also told him how patient has a BNP of 28,476. accepted admission of patient. Time: 02:58 Vital Signs: Vital signs: Vital Signs Temperature 96.1 F L 06/12/20 01:10 Pulse Rate 94 06/12/20 02:31 Respiratory Rate 22 H 06/12/20 02:31 Blood Pressure 94/56 06/12/20 02:31 Pulse Oximetry 96 06/12/20 02:31 MDM - General Adult MDM Narrative: Medical decision making narrative: Patient is a 59-year-old female comes to the ED with bilateral leg cramps, dehydration and dysuria. She has a past medical history of severe CHF with a defib place an LV ejection fraction of 15 to 20%. She is recently been on restricted fluid intake. Patient says she has not been drinking much fluid at all and is just been eating some ice. Physical exam showed very dry mucous membranes and no fluid retention seen on lower extremities . Patient had a creatinine level 2.1 which is up from 1.5 on 02/26/20. BNP is 28,476. BNP was 15,383 on February 24, 2020. I contacted Dr. Villar and told him about patient's case and he accepted admission of patient. Dr. Soria will be placing admission orders. Lab Data: Attestation: I reviewed the patient's lab results. Labs: Lab Results 06/12/20 06/12/20 06/12/20 Range/Units 01:47 01:47 01:47 WBC 7.3 (4.0-10.0) 10^3/ uL RBC 4.55 (4.1-5.3) 10^6/u L Hgb 11.8 (11.5-15.3) g/dL Hct 39.4 (37.0-47.0) % MCV 86.6 (81-99) fL MCH 25.9 L (28.0-34.0) pg MCHC 29.9 L (30.0-36.0) g/dL RDW 22.1 H (12.1-15.1) % Plt Count 378 (130-400) 10^3/c mm MPV 10.0 (7.4-10.4) fL Neut % (Auto) 71.0 % Lymph % (Auto) 12.5 % [place] % (Auto) 14.3 % Eos % (Auto) 0.5 % Baso % (Auto) 1.4 % Neut # (Auto) 5.17 (1.8-7.7) 10^3/u L Lymph # (Auto) 0.9 (0.8-4.8) 10^3/u L [place] # (Auto) 1.0 H (0.2-0.9) 10^3/u L Eos # (Auto) 0.0 (0.0-0.8) 10^3/u L Baso # (Auto) 0.1 (0.0-0.1) 10^3/u L Nucleated RBC % (a uto) 1.0 % Nucleated RBCs # 0.1 /100WBC PT (12.1-14.9) SECO NDS INR (0.8-1.2) Sodium 134 L (136-145) mmol/L Potassium 4.7 (3.5-5.1) mmol/L Chloride 99 (98-107) mmol/L Carbon Dioxide 23 (22-29) mmol/L Anion Gap 16.7 (5-19) BUN 37 H (8-23) mg/dL Creatinine 2.1 H (0.5-0.9) mg/dL GFR Calculation 24.0 L (90-130) mL/min Glucose 104 (65-115) mg/dL Calculated Osmolal ity 276 L (285-295) mOsm/k g Calcium 9.0 (8.5-10.5) mg/dL Total Bilirubin 0.9 (0.15-1.2) mg/dL AST 28 (0-32) U/L ALT 17 (0-33) U/L Alkaline Phosphata se 173 H (35-105) IU/L Troponin T Baselin e 31 H (0-10) ng/L NT-Pro-B Natriuret Pep 04503 H (0-125) pg/mL Total Protein 6.9 (6.6-8.7) g/dL Albumin 4.2 (3.5-5.2) g/dL Globulin 2.7 (1.3-4.6) g/dL 06/12/20 Range/Units 01:47 WBC (4.0-10.0) 10^3/ uL RBC (4.1-5.3) 10^6/u L Hgb (11.5-15.3) g/dL Hct (37.0-47.0) % MCV (81-99) fL MCH (28.0-34.0) pg MCHC (30.0-36.0) g/dL RDW (12.1-15.1) % Plt Count (130-400) 10^3/c mm MPV (7.4-10.4) fL Neut % (Auto) % Lymph % (Auto) % [place] % (Auto) % Eos % (Auto) % Baso % (Auto) % Neut # (Auto) (1.8-7.7) 10^3/u L Lymph # (Auto) (0.8-4.8) 10^3/u L [place] # (Auto) (0.2-0.9) 10^3/u L Eos # (Auto) (0.0-0.8) 10^3/u L Baso # (Auto) (0.0-0.1) 10^3/u L Nucleated RBC % (a uto) % Nucleated RBCs # /100WBC PT 39.60 H (12.1-14.9) SECO NDS INR 3.88 H (0.8-1.2) Sodium (136-145) mmol/L Potassium (3.5-5.1) mmol/L Chloride (98-107) mmol/L Carbon Dioxide (22-29) mmol/L Anion Gap (5-19) BUN (8-23) mg/dL Creatinine (0.5-0.9) mg/dL GFR Calculation (90-130) mL/min Glucose (65-115) mg/dL Calculated Osmolal ity (285-295) mOsm/k g Calcium (8.5-10.5) mg/dL Total Bilirubin (0.15-1.2) mg/dL AST (0-32) U/L ALT (0-33) U/L Alkaline Phosphata se (35-105) IU/L Troponin T Baselin e (0-10) ng/L NT-Pro-B Natriuret Pep (0-125) pg/mL Total Protein (6.6-8.7) g/dL Albumin (3.5-5.2) g/dL Globulin (1.3-4.6) g/dL Imaging Data^: CXR: Attestation: I personally reviewed and interpreted this imaging study as follows: My impression: Chest x-ray showed no lung infiltrates or acute findings. Patient has an enlarged heart due to heart failure. Defibrillator seen. EKG Data^: EKG 1: Attestation: I personally reviewed and interpreted this EKG as follows: EKG interpretation date: 06/12/20 Interpretation: Electronic atrial pacemaker, [address] segment elevation or depression seen. Discharge Plan Discharge Patient Disposition: Admitted As Inpatient Condition: Stable Prescriptions: No Action Spiriva with HandiHaler 18 mcg capsule, w/inhalation device 1 cap INHALATION DAILY RF: 0 pantoprazole 40 mg tablet,delayed release (DR/EC) 40 mg PO DAILY RF: 0 clopidogrel 75 mg tablet 75 mg PO DAILY RF: 0 albuterol sulfate 2.5 mg /3 mL (0.083 %) solution for nebulization 2.5 mg INHALATION Q4H PRN (Reason: Shortness Of Breath) RF: 0 mexiletine 150 mg capsule 150 mg PO Q8H RF: 0 alprazolam 0.5 mg tablet 0.5 mg PO BID PRN (Reason: unknown) RF: 0 spironolactone 25 mg tablet 25 mg PO DAILY RF: 0 potassium chloride 10 mEq capsule, extended release 20 meq PO BID RF: 0 paroxetine HCl 20 mg tablet 20 mg PO DAILY RF: 0 rosuvastatin [Crestor] 40 mg tablet 40 mg PO DAILY RF: 0 metoprolol succinate 25 mg tablet extended release 24 hr 50 mg PO DAILY RF: 0 fluticasone propionate [Allergy Relief (fluticasone)] 50 mcg/actuation spray,suspension 1 spray INTRANASAL BID PRN (Reason: unknown) RF: 0 nitroglycerin [Nitrostat] 0.4 mg tablet, sublingual 0.4 mg SUBLINGUAL Q5M PRN (Reason: Chest Pain) RF: 0 Entresto 24-26 mg tablet 1 tab PO BID Qty: 180 RF: 3 warfarin 1 mg tablet See Rx Instructions .ROUTE .COMPLEX RF: 0 nystatin 100,000 unit/mL suspension 5 ml PO QID RF: 0 torsemide 20 mg Tablet 40 mg PO BID Qty: 60 RF: 0 amiodarone 100 mg tablet 200 mg PO DAILY Qty: 60 RF: 0 morphine 15 mg tablet extended release 15 mg PO BEDTIME RF: 0 mupirocin 2 % ointment See Rx Instructions .ROUTE .COMPLEX RF: 0 Narcan 4 mg/actuation spray,non-aerosol See Rx Instructions .ROUTE .COMPLEX RF: 0 Referrals: Tan Acosta Jr, MD [Primary Care Provider] - Coding Level of Care Code ED Outbound Telemarketer for Chg Fwd Exam Comprehensive
[2020-06-12 01:58] LABS: Basophils # 0.1 10^3/uL (0.0-0.1); Basophils % 1.4 %; Eosinophils % 0.5 %; Hematocrit 39.4 % (37.0-47.0); Hemoglobin 11.8 g/dL (11.5-15.3); Lymphocytes # 0.9 10^3/uL (0.8-4.8); Lymphocytes % 12.5 %; Mean Corpuscular HGB Conc 29.9 g/dL (30.0-36.0); Mean Corpuscular Hemoglobin 25.9 pg (28.0-34.0); Mean Corpuscular Volume 86.6 fL (81-99); Monocytes % 14.3 %; Neutrophils # 5.17 10^3/uL (1.8-7.7); Nucleated Red Blood Cells # 0.1 /100WBC; Platelet Count 378 10^3/cmm (130-400); Red Blood Count 4.55 10^6/uL (4.1-5.3); Red Cell Distribution Width 22.1 % (12.1-15.1); White Blood Count 7.3 10^3/uL (4.0-10.0)
--- NOTE | 2020-06-12 02:01 | PC.NURSE ---
Pt with perioral cyanosis on/off per her normal according to pt and family. No pain or distress at this time.
[2020-06-12 02:06] LABS: INR 3.88 (0.8-1.2)
[2020-06-12 02:13] LABS: Troponin(5th) Baseline 31 ng/L (0-10)
[2020-06-12] MEDS: sodium chloride 0.9% 250 ML IV (02:13)
[2020-06-12 02:22] LABS: Alanine Aminotransferase 17 U/L (0-33); Albumin Level 4.2 g/dL (3.5-5.2); Alkaline Phosphatase 173 IU/L (35-105); Anion Gap 16.7 (5-19); Aspartate Amino Transferase 28 U/L (0-32); Blood Urea Nitrogen 37 mg/dL (8-23); Carbon Dioxide 23 mmol/L (22-29); Chloride 99 mmol/L (98-107); Globulin 2.7 g/dL (1.3-4.6); Glucose 104 mg/dL (65-115); NT Pro B Type Natriuretic Pept 28476 pg/mL (0-125); Osmolality Calculated 276 mOsm/kg (285-295); Potassium 4.7 mmol/L (3.5-5.1); Sodium 134 mmol/L (136-145); Total Bilirubin 0.9 mg/dL (0.15-1.2); Total Protein 6.9 g/dL (6.6-8.7)
--- NOTE | 2020-06-12 02:56 | P.HP_ITS ---
Providers/Chief Complaint Primary Care Provider: Tan Acosta Jr, MD Chief Complaint: leg pain/ dehydrated History of Present Illness Angela Woodruff is a 59 year old female who carries history of end-stage heart failure, severely reduced ejection fraction heart failure status post AICD/pacemaker placement, not a candidate of heart transplant currently on restricted fluid diet(plus torsemide 40 mg twice daily), had an syncopal event secondary to VT detected on device interrogation in February(required manual cardioversion, device did not fire because her heart rate was in 140s and device was set at 140-188), chronic oxygen dependent 2 L at home, left-ventricular thrombus, chronic anticoagulation, came in today for her leg cramps. Patient is stating that on daily basis she is only drinking up to 33 cc/day she is compliant with her diuretics torsemide 40 mg twice a day, she has not noticed any chest pain, palpitations, recent orthopnea, PND or leg swelling. She is using 2 L of oxygen [id number], she thinks her oxygen concentrator is not working properly, she is denying fever but is endorsing some burning on micturition, she feels extremely dry. Has not noticed any recent firing of her AICD. Patient is stating that she is afraid to drink more because sometimes when she drinks a lot of fluid she gets orthopnea and PND symptoms Diagnosis in the ER revealed hypotension systolic blood pressure 96 mmHg, clinically dry intravascularly congested with high BNP, chest x-ray showed cardiomegaly without overt signs of pulmonary venous congestion NICK secondary to dehydration She received 200 cc of normal saline in the ER and was able to urinate which relieved her hypogastric pain, she is afebrile no sign of sepsis Review of Systems Const: Reports: body aches and fatigue Eyes: Denies: change in vision ENMT: Denies: throat pain Card: Reports: swelling of feet/ankles and dyspnea on exertion; Denies: chest pain or orthopnea Resp: Denies: dyspnea GI: Denies: abdominal pain, nausea, vomiting, diarrhea or constipation : Reports: dysuria and oliguria; Denies: flank pain Musc: Denies: neck pain Skin/Breast: Denies: lesions Neuro: Denies: headache(s) Psych: Denies: anxiety Endo: Denies: polyuria Dirk/Lymph: Denies: easy bruising All/Imm: Denies: urticaria Medications/Allergies Home Medications Medication Instructions Recorded Confirmed Last Taken Type albuterol sulfate 2.5 mg INHALATION Q4H PRN 11/09/19 03/27/20 Unknown History alprazolam 0.5 mg tablet 0.5 mg PO BID PRN 11/09/19 03/27/20 02/24/20 History 0.25mg clopidogrel 75 mg tablet 75 mg PO DAILY 11/09/19 03/27/20 02/24/20 History fluticasone propionate 50 1 spray INTRANASAL BID PRN 11/09/19 03/27/20 Unknown History mcg/actuation nasal spray,suspension metoprolol succinate 25 mg 50 mg PO DAILY 11/09/19 03/27/20 02/24/20 History tablet,extended release 24 hr mexiletine 150 mg capsule 150 mg PO Q8H 11/09/19 03/27/20 02/24/20 12:00 History nitroglycerin 0.4 mg sublingual 0.4 mg SUBLINGUAL Q5M PRN 11/09/19 03/27/20 02/24/20 History tablet pantoprazole 40 mg tablet,delayed 40 mg PO DAILY 11/09/19 03/27/20 Unknown History release paroxetine HCl 20 mg tablet 20 mg PO DAILY 11/09/19 03/27/20 12/29/19 History potassium chloride 10 mEq 20 meq PO BID 11/09/19 03/27/20 02/24/20 12:00 History capsule,extended release rosuvastatin 40 mg tablet 40 mg PO DAILY 11/09/19 03/27/20 02/23/20 History spironolactone 25 mg tablet 25 mg PO DAILY 11/09/19 03/27/20 Unknown History tiotropium bromide 18 mcg capsule 1 cap INHALATION DAILY 11/09/19 03/27/20 Un known History with inhalation device Narcan See Rx Instructions .ROUTE .COMPLEX 12/29/19 03/27/20 Unknown History morphine 15 mg PO BEDTIME 12/29/19 03/27/20 02/23/20 History mupirocin See Rx Instructions .ROUTE .COMPLEX 12/29/19 03/27/20 Unknown History nystatin 5 ml PO QID 02/24/20 03/27/20 Unknown History warfarin See Rx Instructions .ROUTE .COMPLEX 02/24/20 06/01/20 Unknown History amiodarone 200 mg PO DAILY #60 tab 02/26/20 03/27/20 Unknown Rx torsemide 40 mg PO BID #60 tab 02/26/20 03/27/20 Unknown Rx sacubitril 24 mg-valsartan 26 mg 1 tab PO BID #180 tab 03/20/20 03/27/20 Unknown Rx tablet Allergies Allergy/AdvReac Type Severity Reaction Status Date / Time No Known Allergies Allergy Verified 03/27/20 14:20 PFSH Acute PFSH: Medical History Acute on chronic systolic heart failure Anticoagulant long-term use ASHD (arteriosclerotic heart disease) Atherosclerotic heart disease of [place] coronary artery without angina pectoris Atrial fibrillation Congestive heart failure with cardiomyopathy Dyslipidemia Ischemic cardiomyopathy LV (left ventricular) mural thrombus Myocardial infarction Periodontal disease Ventricular tachycardia Surgical History S/P angioplasty with stent S/P CABG (coronary artery bypass graft) S/P ICD (internal cardiac defibrillator) procedure Status post tubal ligation Family History Father CAD (coronary artery disease) Myocardial infarction Mother CAD (coronary artery disease) Myocardial infarction Sister CAD (coronary artery disease) Myocardial infarction Social History Smoking and tobacco status: former smoker Alcohol intake: current Alcohol intake frequency: holidays/special occasions o nly Marital status: Life Partner Current gender identity: Female Josi/Holiness: Buddhist Vitals/I&O/Wt Last Vital Signs Temp 96.1 F L 06/12/20 01:10 Pulse 94 06/12/20 02:31 Resp 22 H 06/12/20 02:31 BP 94/56 06/12/20 02:31 Pulse Ox 96 06/12/20 02:31 Weight last 48 hrs Weight 58.967 kg Physical Exam Narrative: EXAM NARRATIVE: Pleasant female currently sitting comfortably saturating well on 2 L nasal cannula no active respiratory distress EOMI, PERRLA Clinically looks dry S1-S2 no active signs of decompensated heart failure Abdomen soft nontender nondistended bowel sound present Neurologically nonfocal deficit Bilateral breath sounds with mild rhonchi otherwise no adventitious sounds Appropriate mood and affect Lower extremity trace edema No signs of ischemia gangrene or ulcer Skin wrinkling positive with clinical dehydration Data : 06/12/20 01:47 06/12/20 01:47 A&P Assessment and plan (1) Acute kidney injury superimposed on chronic kidney disease: Status: Acute (2) Dehydration: Status: Acute (3) Leg cramps: Status: Acute (4) Ischemic cardiomyopathy: Status: Acute (5) S/P ICD (internal cardiac defibrillator) procedure: Status: Acute (6) Anticoagulant long-term use: Status: Acute Additional A&P Information Acute on chronic kidney disease secondary to dehydration I do believe patient overexerted herself with only 33 cc of water per day despite taking torsemide 80 mg a day She is afraid of orthopnea and PND symptoms Currently blood pressure is soft, she has received 250 cc of normal saline in the E, I would give her another 250 cc and monitor her symptoms and creatinine Hold Entresto and spironolactone at this point End-stage heart failure Not a candidate of heart transplant AICD, rhythm is paced, no active chest pain No recent AICD firing Potassium normal, will check magnesium level Continue amiodarone and mexiletine Leg cramps secondary to dehydration Anticipate improvement with fluid resuscitation, considering her NICK I would avoid giving her muscle relaxant at this point, no asymmetrical swelling of her legs We will get Doppler study Left ventricular thrombus Supratherapeutic INR, I would hold Coumadin for today and continue after 24 hours Dysuria most likely secondary to dehydration Patient is afebrile, no sepsis, less likely be UTI Awaiting UA Patient is full code discussed with the patient and her Cardiac diet with fluid restriction DVT prophylaxis: Heparin Attestations Medical Necessity Statement*: Anticipating discharge in less than 48 hours currently need fluid resuscitation for clinical dehydration, Time Spent in Patient Care: (>than 50% of time spent in counselling and/or direct pt care on unit) . 40mins Coding Level of Care Code Acute Mat Cutter for Sushantg Fwd Diagnoses Acute kidney injury superimposed on chronic kidney disease N17.9; N18.9 Dehydration E86.0 Leg cramps R25.2 Ischemic cardiomyopathy I25.5 S/P ICD (internal cardiac defibrillator) procedure Z95.810 Anticoagulant long-term use Z79.01
--- NOTE | 2020-06-12 03:30 | PC.NURSE ---
Per hospitalist at bedside cancel 2nd EKG and Troponin
--- NOTE | 2020-06-12 03:39 | PC.NURSE ---
300ml urine output
[2020-06-12 03:41] LABS: Glucose Urine UA Norm (Normal); Ketones Urine Negative (Negative); Protein Urine Trace (Negative); Urine Appearance SL Hazy (CLEAR); Urine Color Yellow (Yellow); pH Urine 5 (5-7)
[2020-06-12 03:42] LABS: Bacteria Urine 1+; Bilirubin Urine Neg (NEGATIVE); Blood Urine 2+ (Negative); Hyaline Casts Urine 0-4; Leukocyte Esterase Urine Negative (Negative); Nitrate Urine Negative (Negative); RBC Urine 0-4 /hpf (0-2); Squamous Epithelial Cell Urine 0-4 (0-5); Urobilinogen Urine Norm (Negative); WBC Urine 0-4 /hpf (0-5)
[2020-06-12] MEDS: sodium chloride 0.9% 250 ML 100 ML IV (04:19)
[2020-06-12 06:06] LABS: Basophils # 0.1 10^3/uL (0.0-0.1); Basophils % 1.4 %; Eosinophils # 0.1 10^3/uL (0.0-0.8); Eosinophils % 0.9 %; Hematocrit 35.3 % (37.0-47.0); Hemoglobin 10.6 g/dL (11.5-15.3); Lymphocytes # 0.8 10^3/uL (0.8-4.8); Lymphocytes % 9.8 %; Mean Corpuscular Hemoglobin 26.4 pg (28.0-34.0); Mean Platelet Volume 10.2 fL (7.4-10.4); Monocytes % 12.7 %; Neutrophils # 5.73 10^3/uL (1.8-7.7); Neutrophils % 74.9 %; Nucleated Red Blood Cells % 0.4 %; Platelet Count 318 10^3/cmm (130-400); Red Blood Count 4.01 10^6/uL (4.1-5.3); Red Cell Distribution Width 22.3 % (12.1-15.1); White Blood Count 7.7 10^3/uL (4.0-10.0)
[2020-06-12 06:28] LABS: Blood Urea Nitrogen 41 mg/dL (8-23); Calcium 8.1 mg/dL (8.5-10.5); Carbon Dioxide 24 mmol/L (22-29); Chloride 100 mmol/L (98-107); Glucose 100 mg/dL (65-115); Osmolality Calculated 276 mOsm/kg (285-295); Sodium 134 mmol/L (136-145)
[2020-06-12] MEDS: amiodarone 200 mg Tablet PO (09:04)
[2020-06-12] MEDS: metoprolol succinate ER (24 HR) 50 mg Tablet PO (09:04)
[2020-06-12] MEDS: atorvastatin 40 mg Tablet 80 MG PO (09:04)
[2020-06-12] MEDS: pantoprazole DR 40 mg Tablet PO (09:05)
[2020-06-12] MEDS: PARoxetine 20 mg Tablet PO (09:06)
[2020-06-12] MEDS: clopidogrel 75 mg Tablet PO (09:06)
--- NOTE | 2020-06-12 10:53 | PC.CHAP ---
Pastoral Care Encounter/Spiritual Assessment Type of Contact [] Declined search engine optimization manager visit [] Patient/Family/Request visit [] Outpatient visit [] Follow-up visit [] Physician referral [] Code/Alert [x] Routine visit [] Staff referral [] Actively dying [] Patient sleeping [] Family support [] [] Out of room [] Palliative care [] [x] Receiving care in room [] Pre-surgical visit [] Trauma [] Long length of stay [] ICU visit [] Other: Relational/Emotional Strength [x] Patient feels connected with others/family/visitors/staff [] Distress [] Loneliness/isolation [] Abandonment Spirituality of Patient [x] Person of Josi [] Attends Advent of their Josi [x] Believes in Prayer [] Reads Bible or Temple materials [] There are Spiritual issues to be addressed Resident Medical Officer Interventions [x] Prayer [x] Active listening [x] Non-anxious presence [x] Spiritual/emotional support [] Crisis/trauma care [x] Spiritual counseling [] Bereavement support [] Provided bereavement packet [] Provided Bible/devotional materials [] Provided toy/stuffed animal, coloring book to patient or family member [] Provided Communion [] Anointing/[place] [] Salvation [x] Completed spiritual assessment [] Other: Impact on Illness or Injury [] Angry [] Fearful [] Anxious [] Often cries [] Exhaustion [] Unable to work [] Unable to attend orthodoxy [] Unable to walk/stand [] Unable to read [] Unable to drive [] Unable to eat/drink [] Unable to sleep [] Unable to be with family [] Patient intubated [] Other: Summary Dealing with HBP, doesn't know about to what extent the treatment needed, hope full for out come, lookiing forward to going home Time spent with patient 10 mins
--- NOTE | 2020-06-12 12:35 | PC.OT ---
OT screen completed. Pt independently walked from bed to bathroom (able to progress supine to sit and sit to stand without device), did not have any losses of balance. Completed toileting and hand washing without assistance or loss of balance. Pt reported she lives with granddaughter who sometimes helps wash her back during bathing but otherwise pt does self-cares. She reported she intermittently uses a cane for ambulation but did not need device at this time. O2 sat remained between 93-98% on 2 L/min via nasal cannula and heart rate remained in 60s when taken before and directly after activity. Pt reported no pain or cramps at this time. No further OT recommended at this time.
--- NOTE | 2020-06-12 13:41 | P.PN_ITS ---
Subjective Subjective: Interval history: This morning patient was examined, she is laying in bed, she is on 2 L nasal cannula, denies shortness of breath, chest pain has complaints of leg cramps, no nausea, no vomiting, she tells me that she fell 2 weeks ago, no hip pain, no back pain, these cramps are above the knees inner thighs, and she feels weak Vitals/I&O/Wt Last Vital Signs Temp 98.0 F 06/12/20 08:00 Pulse 68 06/12/20 11:26 Resp 18 06/12/20 11:26 BP 105/66 06/12/20 08:00 Pulse Ox 96 06/12/20 11:26 06/11/20 06/12/20 06/12/20 22:59 06:59 14:59 Intake Total 100 / 100 600 / 600 Output Total 400 / 400 Balance 100 / 100 200 / 200 Weight last 48 hrs Weight 58.967 kg Physical Exam Const: COMMON NORMALS: no acute distress and patient oriented x3 HENMT: COMMON NORMALS: normocephalic HEAD & SCALP: normocephalic Neck/C-Spine: COMMON NORMALS: no JVD Resp: COMMON NORMALS: normal respiratory effort, No retractions, No use of accessory muscles and clear to auscultation bilaterally AUSCULTATION: clear to auscultation bilaterally Cardio: COMMON NORMALS: no JVD, regular rate, regular rhythm, S1 normal heart sound present and S2 normal heart sound present RATE: regular rate RHYTHM: regular rhythm HEART SOUNDS: S1 normal heart sound present and S2 normal heart sound present GI: COMMON NORMALS: Normal to inspection, nondistended, normoactive bowel sounds present, Soft to palpation, non-tender, No hepatosplenomegaly present, no masses and no bruits PALPATION: Yes Soft to palpation and Yes No hepatosplenomegaly present Extremity: COMMON NORMALS: capillary refill normal, no clubbing, cyanosis or edema, no calf tenderness and no pedal edema Neuro: COMMON NORMALS: patient oriented x3 Psych: COMMON NORMALS: mental status grossly normal Data : 06/12/20 05:40 06/12/20 05:40 A&P Assessment and plan (1) Acute kidney injury superimposed on chronic kidney disease: Status: Acute (2) Dehydration: Status: Acute (3) Leg cramps: Status: Acute (4) Ischemic cardiomyopathy: Status: Acute (5) S/P ICD (internal cardiac defibrillator) procedure: Status: Acute (6) Anticoagulant long-term use: Status: Acute Additional A&P Information Acute on chronic kidney disease secondary to dehydration Patient has history of soft blood pressures Hold diuretics for the next 24 hours, limit fluid intake to 1200 cc monitor her symptoms and creatinine Status post a liter bolus in the last 24 hours, monitor creatinine Hold Entresto and spironolactone at this point End-stage heart failure, ischemic cardiomyopathy, last EF 10 to 15% Not a candidate of heart transplant, refused hospice in the past AICD, rhythm is paced, no active chest pain No recent AICD firing Potassium normal, will check magnesium level Continue amiodarone and mexiletine Leg cramps secondary to dehydration Anticipate improvement with fluid resuscitation, considering her NICK I would avoid giving her muscle relaxant at this point, no asymmetrical swelling of her legs We will get Doppler study Left ventricular thrombus, atrial fibrillation INR 3.8, continue Coumadin dosing for now, recheck INR tomorrow Dysuria most likely secondary to dehydration Patient is afebrile, no sepsis, less likely be UTI Start Rocephin for possible UTI A unremarkable Patient is full code discussed with the patient and her Cardiac diet with fluid restriction DVT prophylaxis: coumadin Attestations Medical Necessity Statement*: Patient cards continued hospitalization for NICK on CKD, leg cramps, concern for UTI Coding Level of Care Code Acute Clinical Services Manager for g Fwd Diagnoses Acute kidney injury superimposed on chronic kidney disease N17.9; N18.9 Dehydration E86.0 Leg cramps R25.2 Ischemic cardiomyopathy I25.5 S/P ICD (internal cardiac defibrillator) procedure Z95.810 Anticoagulant long-term use Z79.01
[2020-06-12] MEDS: cefTRIAXone 1,000 MG in sodium chloride 0.9% (plus) 50 ML 100 MG IV (14:42)
[2020-06-12] MEDS: warfarin 1 mg Tablet PO (14:48)
--- NOTE | 2020-06-12 18:13 | PC.NURSE ---
end of shift report: pt has been resting in bed, no complaints of any pain, sob, shes had 800 ml output, and 960/1200 fluid intake. pt INR is 3.88, creatinine is 2.1 with a BUN of 41. was updated at bedside during visiting hours.
[2020-06-12] MEDS: morphine ER (12 HR) 15 mg Tablet PO (20:58)
[2020-06-13 03:55] VITALS: BP 105/69; PULSE 59; RESP 20; TEMP 36.4; O2SAT 97
[2020-06-13 05:05] LABS: Basophils # 0.1 10^3/uL (0.0-0.1); Basophils % 1.3 %; Eosinophils # 0.1 10^3/uL (0.0-0.8); Eosinophils % 1.1 %; Hematocrit 34.5 % (37.0-47.0); Hemoglobin 10.1 g/dL (11.5-15.3); Lymphocytes # 0.6 10^3/uL (0.8-4.8); Mean Corpuscular HGB Conc 29.3 g/dL (30.0-36.0); Mean Corpuscular Hemoglobin 25.1 pg (28.0-34.0); Mean Corpuscular Volume 85.8 fL (81-99); Mean Platelet Volume 10.2 fL (7.4-10.4); Monocytes # 0.8 10^3/uL (0.2-0.9); Monocytes % 11.4 %; Neutrophils % 77.1 %; Nucleated Red Blood Cells % 0.4 %; Platelet Count 320 10^3/cmm (130-400); Red Blood Count 4.02 10^6/uL (4.1-5.3); Red Cell Distribution Width 21.8 % (12.1-15.1); White Blood Count 7.1 10^3/uL (4.0-10.0)
[2020-06-13 05:32] LABS: Alanine Aminotransferase 14 U/L (0-33); Albumin Level 3.6 g/dL (3.5-5.2); Alkaline Phosphatase 146 IU/L (35-105); Anion Gap 11.9 (5-19); Aspartate Amino Transferase 22 U/L (0-32); Blood Urea Nitrogen 35 mg/dL (8-23); Calcium 8.6 mg/dL (8.5-10.5); Carbon Dioxide 25 mmol/L (22-29); Chloride 100 mmol/L (98-107); Globulin 2.6 g/dL (1.3-4.6); Glomerular Filtration Rate 25.4 mL/min (90-130); Glucose 110 mg/dL (65-115); Magnesium 2.6 mg/dL (1.7-2.3); Osmolality Calculated 274 mOsm/kg (285-295); Phosphorus 3.2 mg/dL (2.5-4.5); Potassium 3.9 mmol/L (3.5-5.1); Sodium 133 mmol/L (136-145); Total Bilirubin 0.7 mg/dL (0.15-1.2); Total Protein 6.2 g/dL (6.6-8.7)
[2020-06-13 07:58] VITALS: BP 108/71; PULSE 66; RESP 18; O2SAT 95
[2020-06-13] MEDS: PARoxetine 20 mg Tablet PO (08:29)
[2020-06-13] MEDS: amiodarone 200 mg Tablet PO (08:29)
[2020-06-13] MEDS: clopidogrel 75 mg Tablet PO (08:29)
[2020-06-13] MEDS: pantoprazole DR 40 mg Tablet PO (08:29)
[2020-06-13] MEDS: metoprolol succinate ER (24 HR) 50 mg Tablet PO (08:29)
[2020-06-13] MEDS: atorvastatin 40 mg Tablet 80 MG PO (08:30)
[2020-06-13 08:44] VITALS: PULSE 61; RESP 16; O2SAT 98
--- NOTE | 2020-06-13 11:14 | P.DS_ITS ---
Discharge Providers Date of Admission: 06/12/20 03:03 Date of Discharge: June 13, 2020 Attending Provider at Admission: Niyah Villar MD Attending Provider at Discharge: Thaddeus Brantley MD Primary Care Provider: Tan Acosta Jr, MD Diagnoses at Discharge Discharge Diagnosis (1) Acute kidney injury superimposed on chronic kidney disease: Status: Acute (2) Dehydration: Status: Acute (3) Leg cramps: Status: Acute (4) Ischemic cardiomyopathy: Status: Acute (5) S/P ICD (internal cardiac defibrillator) procedure: Status: Acute (6) Anticoagulant long-term use: Status: Acute Reason for Visit Reason for Visit: leg pain/ dehydrated Hospital Course Discharge Summary: This is a 59-year-old female with ischemic cardiomyopathy, EF 10 to 15%, status post AICD placement, not a candidate for heart transplant, has refused hospice in the past, CAD, CABG, atrial fibrillation and left ventricular thrombus on Coumadin, acute on chronic kidney disease, recent hospitalization for Nabil umanzor GERD, who presents [facility] due to weakness, leg cramps Patient was admitted to [facility] for acute kidney injury on chronic kidney disease, creatinine as high as 2.1, secondary to dehydration and nephrotoxic medications. Patient was admitted to the general medical floors, received gentle IV hydration, nephrotoxic medications were held. Patient clinically improved. Her creatinine on discharge was 2.0, she had decent urine output. Patient was discharged on instructions to hold her torsemide, Entresto, spironolactone until Thursday until she sees Dr. Acosta. Repeat CBC and CMP on Thursday. Patient was advised that as she is off her diuretics, she should limit her fluid intake to less than 1.2 L a day. If she were to have shortness of breath or chest pain come back to the emergency room. For her leg cramps, bilateral thigh cramps, likely muscle spasms, potassium was and magnesium within normal limits, improved with ambulation, and muscle relaxers. Patient was advised to continue ambulations, use muscle relaxers as needed. Patient was also found to have a UTI on admission, discharged on Keflex. INR on discharge was 3.17, I presume patient's goal is higher 2.5-3.5 given her left ventricular thrombus, continue home Coumadin dosing, with recheck of INR in 1 week, monitor for bloody or black stools Physical Exam Const: COMMON NORMALS: no acute distress and patient oriented x3 HENMT: COMMON NORMALS: normocephalic HEAD & SCALP: normocephalic Neck/C-Spine: COMMON NORMALS: no JVD Resp: COMMON NORMALS: normal respiratory effort, No retractions, No use of accessory muscles and clear to auscultation bilaterally AUSCULTATION: clear to auscultation bilaterally Cardio: COMMON NORMALS: no JVD, regular rate, regular rhythm, S1 normal heart sound present and S2 normal heart sound present RATE: regular rate RHYTHM: regular rhythm HEART SOUNDS: S1 normal heart sound present and S2 normal heart sound present GI: COMMON NORMALS: Normal to inspection, nondistended, normoactive bowel sounds present, Soft to palpation, non-tender, No hepatosplenomegaly present, no masses and no bruits PALPATION: Yes Soft to palpation and Yes No hepatosplenomegaly present Extremity: COMMON NORMALS: capillary refill normal, no clubbing, cyanosis or edema, no calf tenderness and no pedal edema Neuro: COMMON NORMALS: patient oriented x3 Psych: COMMON NORMALS: mental status grossly normal Discharge Data Data Completed and Pending: Completed Studies During Hospitalization Category Date Time Status XR chest 1V milla ble [id number] Stat Exams 06/12/20 01:20 Completed Pending at discharge Category Date Time Status Complete Blood Co unt w/Auto AM LABS Lab 06/14/20 04:00 Ordered Complete Blood Co unt w/Auto AM LABS Lab 06/15/20 04:00 Ordered Comprehensive Met abolic Panel AM LA BS Lab 06/14/20 04:00 Ordered Comprehensive Met abolic Panel AM LA BS Lab 06/15/20 04:00 Ordered Magnesium AM LABS Lab 06/14/20 04:00 Ordered Magnesium AM LABS Lab 06/15/20 04:00 Ordered Phosphorus AM LAB S Lab 06/14/20 04:00 Ordered Phosphorus AM LAB S Lab 06/15/20 04:00 Ordered Prothrombin Time INR Stat Lab 06/13/20 11:08 Ordered Labs from last 24 hours 06/13/20 06/13/20 04:50 04:50 WBC 7.1 RBC 4.02 L Hgb 10.1 L Hct 34.5 L MCV 85.8 MCH 25.1 L MCHC 29.3 L RDW 21.8 H Plt Count 320 MPV 10.2 Neut % (Auto) 77.1 Lymph % (Auto) 9.0 Rowan % (Auto) 11.4 Eos % (Auto) 1.1 Baso % (Auto) 1.3 Neut # (Auto) 5.50 Lymph # (Auto) 0.6 L [place]an # (Auto) 0.8 Eos # (Auto) 0.1 Baso # (Auto) 0.1 Nucleated RBC % (a uto) 0.4 Nucleated RBCs # 0.0 Sodium 133 L Potassium 3.9 Chloride 100 Carbon Dioxide 25 Anion Gap 11.9 BUN 35 H Creatinine 2.0 H GFR Calculation 25.4 L Glucose 110 Calculated Osmolal ity 274 L Calcium 8.6 Phosphorus 3.2 Magnesium 2.6 H Total Bilirubin 0.7 AST 22 ALT 14 Alkaline Phosphata se 146 H Total Protein 6.2 L Albumin 3.6 Globulin 2.6 Vitals: Last Vital Signs Temp 97.5 F L 06/13/20 03:55 Pulse 61 06/13/20 08:44 Resp 16 06/13/20 08:44 BP 108/71 06/13/20 07:58 Pulse Ox 98 06/13/20 08:44 Discharge Plan Discharge Patient Disposition: Home Condition: Stable Prescriptions: New cyclobenzaprine 10 mg Tablet 5 mg PO TID PRN (Reason: Muscle Spasms) 15 Days Qty: 30 RF: 0 warfarin 2 mg Tablet 2 mg PO SuMoWeFrSa@1400 30 Days RF: 0 cephalexin [Keflex] 500 mg capsule 500 mg PO BID 5 Days Qty: 10 RF: 0 Continued Spiriva with HandiHaler 18 mcg capsule, w/inhalation device 1 cap INHALATION DAILY RF: 0 pantoprazole 40 mg tablet,delayed release (DR/EC) 40 mg PO DAILY RF: 0 clopidogrel 75 mg tablet 75 mg PO DAILY RF: 0 albuterol sulfate 2.5 mg /3 mL (0.083 %) solution for nebulization 2.5 mg INHALATION Q4H PRN (Reason: Shortness Of Breath) RF: 0 mexiletine 150 mg capsule 150 mg PO Q8H RF: 0 alprazolam 0.5 mg tablet 0.5 mg PO BID PRN (Reason: unknown) RF: 0 potassium chloride 10 mEq capsule, extended release 20 meq PO BID RF: 0 paroxetine HCl 20 mg tablet 20 mg PO DAILY RF: 0 rosuvastatin [Crestor] 40 mg tablet 40 mg PO DAILY RF: 0 metoprolol succinate 25 mg tablet extended release 24 hr 25 mg PO DAILY RF: 0 fluticasone propionate [Allergy Relief (fluticasone)] 50 mcg/actuation spray,suspension 1 spray INTRANASAL BID PRN (Reason: unknown) RF: 0 nitroglycerin [Nitrostat] 0.4 mg tablet, sublingual 0.4 mg SUBLINGUAL Q5M PRN (Reason: Chest Pain) RF: 0 warfarin 1 mg tablet See Rx Instructions .ROUTE .COMPLEX RF: 0 morphine 15 mg tablet extended release 15 mg PO BEDTIME RF: 0 Narcan 4 mg/actuation spray,non-aerosol See Rx Instructions .ROUTE .COMPLEX RF: 0 Pacerone 100 mg tablet See Rx Instructions .ROUTE .COMPLEX RF: 0 Multiple Vitamins Tablet 1 tab PO DAILY RF: 0 Held spironolactone 25 mg tablet 25 mg PO DAILY RF: 0 Hold Instructions: Resume on 06/18/20. hold until seen by primary care Entresto 24-26 mg tablet 1 tab PO BID Qty: 180 RF: 3 Hold Instructions: Resume on 06/18/20. hold until seen by primary care torsemide 20 mg Tablet 40 mg PO BID Qty: 60 RF: 0 Hold Instructions: Resume on 06/18/20. hold until seen by primary care Discontinued furosemide 40 mg tablet 40 mg PO BID RF: 0 Discharge Orders: Discharge Order (Routine); Ordered 06/13/20 Ordered By: Thaddeus Brantley Other Ambulatory Orders: Complete Blood Count w/Auto (Routine) Timeframe: 1 Week Location: Determined by Patient Ordered By: Thaddeus Brantley Comprehensive Metabolic Panel (Routine) Timeframe: 1 Week Facility: [facility] - Location: Lab - Main Lab Ordered By: Thaddeus Brantley Prothrombin Time INR (Routine) Timeframe: 1 Week Facility: [facility] - Location: Lab - Main Lab Ordered By: Thaddeus Brantley Referrals: Tan Acosta Jr, MD [Primary Care Provider] - 06/18/20 2:15 pm Discharge Diet: Cardiac Discharge Activity: Resume usual activity Patient Instructions: Dehydration - Adult, Cephalexin (By mouth), Cyclobenzaprine (By mouth), Warfarin (By mouth), Leg Cramps, Acute Kidney Injury (DC) Activity Restrictions/Additional Instructions: -Please repeat blood work on Thursday -Please resume Entresto, spironolactone, torsemide on Thursday after he see Dr. 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
[2020-06-13 11:24] VITALS: BP 104/70; PULSE 67; RESP 20; TEMP 36.4
[2020-06-13 12:00] VITALS: BP 104/70; PULSE 67; RESP 20; TEMP 36.4; O2SAT 98
[2020-06-13 12:24] LABS: INR 3.17 (0.8-1.2)
--- NOTE | 2020-06-13 14:14 | PC.CHAP ---
Pastoral Care Encounter/Spiritual Assessment Type of Contact [] Declined cash management specialist visit [] Patient/Family/Request visit [] Outpatient visit [] Follow-up visit [] Physician referral [] Code/Alert [X] Routine visit [] Staff referral [] Actively dying [] Patient sleeping [] Family support [] [] Out of room [] Palliative care [] [] Receiving care in room [] Pre-surgical visit [] Trauma [] Long length of stay [] ICU visit [] Other: Relational/Emotional Strength [] Patient feels connected with others/family/visitors/staff [] Distress [] Loneliness/isolation [] Abandonment Spirituality of Patient [] Person of Josi [] Attends Islam of their Josi [] Believes in Prayer [] Reads Bible or Cheondoism materials [] There are Spiritual issues to be addressed News Reporter Interventions [] Prayer [] Active listening [] Non-anxious presence [] Spiritual/emotional support [] Crisis/trauma care [] Spiritual counseling [] Bereavement support [] Provided bereavement packet [] Provided Bible/devotional materials [] Provided toy/stuffed animal, coloring book to patient or family member [] Provided Communion [] Anointing/[place] [] Salvation [] Completed spiritual assessment [] Other: Impact on Illness or Injury [] Angry [] Fearful [] Anxious [] Often cries [] Exhaustion [] Unable to work [] Unable to attend restorationism [] Unable to walk/stand [] Unable to read [] Unable to drive [] Unable to eat/drink [] Unable to sleep [] Unable to be with family [] Patient intubated [] Other: Summary Time spent with patient
[2020-06-13 15:06] VITALS: BP 104/70; PULSE 67; RESP 20; TEMP 36.4; O2SAT 98
== END 2020-06-13 13:30 | disposition home or self-care (01) ==
LOC: ER 03:14 → MEDSURG 03:33
PROVIDERS: Admitting Provider Internal Medicine; Emergency Provider Physician Assistant; PCP Family Medicine; Visit Provider Family Medicine
DX: N17.9 Acute kidney failure, unspecified (principal); N18.9 Chronic kidney disease, unspecified; E86.0 Dehydration; R25.2 Cramp and spasm; I25.5 Ischemic cardiomyopathy; I25.10 Atherosclerotic heart disease of native coronary artery without angina pectoris; I48.91 Unspecified atrial fibrillation; I50.23 Acute on chronic systolic (congestive) heart failure; E78.5 Hyperlipidemia, unspecified; I25.2 Old myocardial infarction; I47.2 Ventricular tachycardia; I24.0 Acute coronary thrombosis not resulting in myocardial infarction; R30.0 Dysuria; Z95.810 Presence of automatic (implantable) cardiac defibrillator; Z79.01 Long term (current) use of anticoagulants; Z79.899 Other long term (current) drug therapy; Z95.5 Presence of coronary angioplasty implant and graft; Z95.1 Presence of aortocoronary bypass graft; Z82.49 Family history of ischemic heart disease and other diseases of the circulatory system; Z87.891 Personal history of nicotine dependence
CPT/HCPCS: 12345; 36415; 71045; 80048; 80053; 81001; 83735; 83880; 84100; 84484; 85025; 85610; 93005; 96360; 96361; 99283; 99285; G0378; J0696; J7050

== ENCOUNTER 2020-06-16 14:48 | Emergency (ER) | payer MEDICARE, SELFPAY ==
[2020-06-16 14:49] VITALS: BP 101/56; PULSE 65; RESP 10; O2SAT 53; BMI 24.5
--- NOTE | 2020-06-16 15:16 | ED_ITS ---
HPI - CPR General: Chief Complaint: Cardiac Arrest/CPR Stated Complaint: CARDIAC ARREST Time Seen by Provider: 06/16/20 15:16 History of Present Illness: HPI narrative: 59-year-old female with a known cardiac history. EMS was called to the scene she was awake and alert and arrested in front of them at 1408. They began CPR and had PEA in route a IO line is in place on arrival here. CPR was resumed several rounds were done patient was given amiodarone and epi. Amiodarone was given because weak cardiac activity was noted on bedside ultrasound but that was not effective for circulation. See below PFSH ED PFSH: Medical History (Updated 06/16/20 @ 15:21 by Christopher Cowan DO) Acute on chronic systolic heart failure Anticoagulant long-term use ASHD (arteriosclerotic heart disease) Atherosclerotic heart disease of [place] coronary artery without angina pectoris Atrial fibrillation Congestive heart failure with cardiomyopathy Dyslipidemia Ischemic cardiomyopathy LV (left ventricular) mural thrombus Myocardial infarction Periodontal disease Ventricular tachycardia Surgical History S/P angioplasty with stent S/P CABG (coronary artery bypass graft) S/P ICD (internal cardiac defibrillator) procedure Status post tubal ligation Family History Father CAD (coronary artery disease) Myocardial infarction Mother CAD (coronary artery disease) Myocardial infarction Sister CAD (coronary artery disease) Myocardial infarction Social History Smoking and tobacco status: former smoker Alcohol intake: current Alcohol intake frequency: holidays/special occasions only Marital status: Life Partner Current gender identity: Female Josi/Hindu: Yazidism Course ED course: Central line placed by Dr. Gregory Vital Signs: Vital signs: Vital Signs Pulse Rate 65 06/16/20 14:49 Respiratory Rate 10 L 06/16/20 14:49 Blood Pressure 101/56 06/16/20 14:49 Pulse Oximetry 53 L 06/16/20 14:49 MDM - Cardiac Arrest/CPR MDM Narrative: Medical decision making narrative: See the code note. Discussed with the family patient remained in PEA after 50 minutes of sustained resuscitative efforts. Discussed with the family they wish to cease efforts. They came to the trauma room to be at the bedside when efforts were ceased. Once the daughter and arrived at the bedside resuscitative efforts were ceased Rafat airway was removed. Patient continued in PEA for a few more minutes and then was asystole. Time of 1516. Critical Care Time Critical Care Time: Critical Care Time: Yes Total Critical Care Time: 30 Attestation: This case had a high probability of a clinically significant, sudden, or life threatening deterioration of this patient's condition which required my full and direct attention, intervention and personal management. Discharge Plan Discharge Patient Disposition: Clinical Impression: Myocardial infarction, Ischemic cardiomyopathy, ASHD (arteriosclerotic heart disease) Condition: Stable Prescriptions: No Action Spiriva with HandiHaler 18 mcg capsule, w/inhalation device 1 cap INHALATION DAILY RF: 0 pantoprazole 40 mg tablet,delayed release (DR/EC) 40 mg PO DAILY RF: 0 clopidogrel 75 mg tablet 75 mg PO DAILY RF: 0 albuterol sulfate 2.5 mg /3 mL (0.083 %) solution for nebulization 2.5 mg INHALATION Q4H PRN (Reason: Shortness Of Breath) RF: 0 mexiletine 150 mg capsule 150 mg PO Q8H RF: 0 alprazolam 0.5 mg tablet 0.5 mg PO BID PRN (Reason: unknown) RF: 0 spironolactone 25 mg tablet 25 mg PO DAILY RF: 0 Hold Instructions: Resume on 06/18/20. hold until seen by primary care potassium chloride 10 mEq capsule, extended release 20 meq PO BID RF: 0 paroxetine HCl 20 mg tablet 20 mg PO DAILY RF: 0 rosuvastatin [Crestor] 40 mg tablet 40 mg PO DAILY RF: 0 metoprolol succinate 25 mg tablet extended release 24 hr 25 mg PO DAILY RF: 0 fluticasone propionate [Allergy Relief (fluticasone)] 50 mcg/actuation spray,suspension 1 spray INTRANASAL BID PRN (Reason: unknown) RF: 0 nitroglycerin [Nitrostat] 0.4 mg tablet, sublingual 0.4 mg SUBLINGUAL Q5M PRN (Reason: Chest Pain) RF: 0 Entresto 24-26 mg tablet 1 tab PO BID Qty: 180 RF: 3 Hold Instructions: Resume on 06/18/20. hold until seen by primary care warfarin 1 mg tablet See Rx Instructions .ROUTE .COMPLEX RF: 0 torsemide 20 mg Tablet 40 mg PO BID Qty: 60 RF: 0 Hold Instructions: Resume on 06/18/20. 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
--- NOTE | 2020-06-16 15:47 | ED_ITS ---
HPI - CPR General: Chief Complaint: Cardiac Arrest/CPR Stated Complaint: CARDIAC ARREST Time Seen by Provider: 06/16/20 15:16 PFSH ED PFSH: Medical History (Updated 06/16/20 @ 15:21 by Christopher Cowan DO) Acute on chronic systolic heart failure Anticoagulant long-term use ASHD (arteriosclerotic heart disease) Atherosclerotic heart disease of [place] coronary artery without angina pectoris Atrial fibrillation Congestive heart failure with cardiomyopathy Dyslipidemia Ischemic cardiomyopathy LV (left ventricular) mural thrombus Myocardial infarction Periodontal disease Ventricular tachycardia Surgical History S/P angioplasty with stent S/P CABG (coronary artery bypass graft) S/P ICD (internal cardiac defibrillator) procedure Status post tubal ligation Family History Father CAD (coronary artery disease) Myocardial infarction Mother CAD (coronary artery disease) Myocardial infarction Sister CAD (coronary artery disease) Myocardial infarction Social History Smoking and tobacco status: former smoker Alcohol intake: current Alcohol intake frequency: holidays/special occasions only Marital status: Life Partner Current gender identity: Female 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 Procedures Central Line Placement Right Femoral: Patient Placed on Monitor/Pulse Ox: Yes Prep: mask and gloves Central Line Prep: Povidone-Iodine 1% Central Line Lumen Inserted: triple Post Procedure: sutured in place, good blood return, all ports aspirated, flushed, capped and sterile dressing applied Patient Tolerated Procedure: well Complications: none Course Vital Signs: Vital signs: Vital Signs Pulse Rate 65 06/16/20 14:49 Respiratory Rate 10 L 06/16/20 14:49 Blood Pressure 101/56 06/16/20 14:49 Pulse Oximetry 53 L 06/16/20 14:49 Discharge Plan Discharge Patient Disposition: Clinical Impression: Myocardial infarction, Ischemic cardiomyopathy, ASHD (arteriosclerotic heart disease) Condition: Stable Prescriptions: No Action Spiriva with HandiHaler 18 mcg capsule, w/inhalation device 1 cap INHALATION DAILY RF: 0 pantoprazole 40 mg tablet,delayed release (DR/EC) 40 mg PO DAILY RF: 0 clopidogrel 75 mg tablet 75 mg PO DAILY RF: 0 albuterol sulfate 2.5 mg /3 mL (0.083 %) solution for nebulization 2.5 mg INHALATION Q4H PRN (Reason: Shortness Of Breath) RF: 0 mexiletine 150 mg capsule 150 mg PO Q8H RF: 0 alprazolam 0.5 mg tablet 0.5 mg PO BID PRN (Reason: unknown) RF: 0 spironolactone 25 mg tablet 25 mg PO DAILY RF: 0 Hold Instructions: Resume on 06/18/20. hold until seen by primary care potassium chloride 10 mEq capsule, extended release 20 meq PO BID RF: 0 paroxetine HCl 20 mg tablet 20 mg PO DAILY RF: 0 rosuvastatin [Crestor] 40 mg tablet 40 mg PO DAILY RF: 0 metoprolol succinate 25 mg tablet extended release 24 hr 25 mg PO DAILY RF: 0 fluticasone propionate [Allergy Relief (fluticasone)] 50 mcg/actuation spray,suspension 1 spray INTRANASAL BID PRN (Reason: unknown) RF: 0 nitroglycerin [Nitrostat] 0.4 mg tablet, sublingual 0.4 mg SUBLINGUAL Q5M PRN (Reason: Chest Pain) RF: 0 Entresto 24-26 mg tablet 1 tab PO BID Qty: 180 RF: 3 Hold Instructions: Resume on 06/18/20. hold until seen by primary care warfarin 1 mg tablet See Rx Instructions .ROUTE .COMPLEX RF: 0 torsemide 20 mg Tablet 40 mg PO BID Qty: 60 RF: 0 Hold Instructions: Resume on 06/18/20. 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
--- NOTE | 2020-06-16 15:58 | PC.CHAP ---
Pastoral Care Encounter/Spiritual Assessment Type of Contact [] Declined saw operator visit [] Patient/Family/Request visit [] Outpatient visit [] Follow-up visit [] Physician referral [] Code/Alert [] Routine visit [] Staff referral [] Actively dying [] Patient sleeping [x] Family support [x] [] Out of room [] Palliative care [] [] Receiving care in room [] Pre-surgical visit [] Trauma [] Long length of stay [] ICU visit [] Other: Relational/Emotional Strength [] Patient feels connected with others/family/visitors/staff [] Distress [] Loneliness/isolation [] Abandonment Spirituality of Patient [x] Person of Josi [] Attends Latter Day of their Josi [] Believes in Prayer [] Reads Bible or Cheondoism materials [] There are Spiritual issues to be addressed Bed Maker Interventions [x] Prayer [x] Active listening [x] Non-anxious presence [x] Spiritual/emotional support [] Crisis/trauma care [] Spiritual counseling [x] Bereavement support [] Provided bereavement packet [] Provided Bible/devotional materials [] Provided toy/stuffed animal, coloring book to patient or family member [] Provided Communion [] Anointing/[place] [] Salvation [] Completed spiritual assessment [] Other: Impact on Illness or Injury [] Angry [] Fearful [] Anxious [] Often cries [] Exhaustion [] Unable to work [] Unable to attend anglican [] Unable to walk/stand [] Unable to read [] Unable to drive [] Unable to eat/drink [] Unable to sleep [] Unable to be with family [] Patient intubated [] Other: Summary Bed Maker called in to support family on loss of loved one. Bed Maker offered condolences to family and inquired of any needs at this time. Bed Maker prayed for family. Family was very emotional but doing well. Family going home soon. The is the mom of a coworker here at [facility] [place]. Bed Maker will check on her on Thursday. Time spent with patient 25 min
--- NOTE | 2020-06-16 20:50 | PC.NURSE ---
MTS recieved Body at 2005
== END 2020-06-16 17:51 | disposition expired ==
PROVIDERS: Emergency Provider Family Medicine; PCP Family Medicine
DX: I21.9 Acute myocardial infarction, unspecified (principal); I25.5 Ischemic cardiomyopathy; I25.10 Atherosclerotic heart disease of native coronary artery without angina pectoris; Z79.02 Long term (current) use of antithrombotics/antiplatelets; Z79.01 Long term (current) use of anticoagulants; I50.23 Acute on chronic systolic (congestive) heart failure; E78.5 Hyperlipidemia, unspecified; Z95.1 Presence of aortocoronary bypass graft; Z87.891 Personal history of nicotine dependence
CPT/HCPCS: 12345; 36556; 99282; 99284